=== PATIENT | female | born 1945 | race Caucasian/White ===

== ENCOUNTER 2023-11-12 10:25 | Inpatient (IN) | payer MEDICARE, SELFPAY ==
[2023-11-12] VITALS (37 sets, daily range): BP systolic 101–134; BP diastolic 33–60; PULSE 60–145; RESP 13–29; TEMP 36.4–37.1; O2SAT 91–98; BMI 19.8
--- NOTE | ~2023-11-12 | XR_ITS ---
MODIFIED ESOPHAGRAM HISTORY: Recent intubation TECHNIQUE: Modified barium esophagram was performed on 11/14/2023. I administered fluoroscopy and perf ormed the exam with speech pathologist. Patient was seated for lateral fluoroscopic imaging for renetta stion of thin liquids, pudding, solids and quantified amounts, followed by thin liquids in uncontroll ed amounts. This was recorded on tape. A single fluoroscopic spot image was also recorded. The DAP fo r this procedure was 1.513 Gycm2. The amount of fluoroscopy time used during this procedure was 3.2 m inutes. FINDINGS: Oral stage: Adequate function. Pharyngeal stage: There is laryngeal elevation and tongue base retraction. There is vallecular and pi riform sinus residue. There is laryngeal penetration with aspiration.. Cervical/esophageal stage: Adequate function. IMPRESSION: Pharyngeal dysphagia with laryngeal penetration and aspiration. Please correlate with sp eech pathologist findings and specific feeding recommendations. Reviewed, dictated and finalized at location A. BAGGER IMPRESSION: Pharyngeal dysphagia with laryngeal penetration and aspiration. Pl ease correlate with speech pathologist findings and specific feeding recommenda tions.
--- NOTE | ~2023-11-12 | XR_ITS ---
EXAMINATION: XR chest 1V portable DATE: 11/12/2023 11:44 INDICATION: Altered mental status TECHNIQUE: frontal view of the chest was obtained. COMPARISON: None FINDINGS: Mild reticulonodular pattern in the right lower lung zone corresponding to tree-in-bud opacities on s ubsequent CT with similar more subtle opacity left lower lung zone consistent with pneumonia. No pleu ral effusion or pneumothorax. Heart size is normal. Electronic device and numerous leads injected ove r the chest. IMPRESSION: 1. Subtle opacities in bilateral lower lung zones with appearance on subsequent CT favoring pneumonia . Reviewed, dictated and finalized at location A. E REPAIRER IMPRESSION: 1. Subtle opacities in bilateral lower lung zones with appearance on subsequent CT favoring pneumonia.
--- NOTE | ~2023-11-12 | CT_ITS ---
EXAMINATION: CT brain wo con DATE: 11/12/2023 12:28 INDICATION: Altered mental status. TECHNIQUE: Computed tomography (CT) of the head was performed without intravenous contrast. Sagittal and coronal reconstructions were performed. The mA was adjusted according to patient size. Iterative reconstruction technique was employed. The dose-length product was 605.33 mGy-cm. COMPARISON: None FINDINGS: Moderate sized region of decreased attenuation without evident atrophy or mass effect in the anterome dial superior left cerebellar hemisphere suggesting a acute to subacute infarct. No acute intracrania l hemorrhage, acute infarction or abnormal extra axial fluid collection. There is mild scattered whit e matter hypoattenuation consistent with chronic small vessel ischemic disease. Symmetric prominence of the sulci and or subarachnoid spaces overlying the convexities consistent with mild age-appropriat e diffuse cerebral volume loss. Ventricles are normal and symmetric. No mass/mass effect. Changes of bilateral intraocular lens replacement. The orbits and mastoid air cells are normal. Moderate mucosa l thickening in the posterior left ethmoid and sphenoid sinuses. IMPRESSION: 1. Moderate-sized region of decreased attenuation in the left cerebral hemisphere suspicious for acut e to subacute infarct. Correlate clinically for left cerebellar infarct. 2. Age-related changes including mild diffuse volume loss and mild scattered white matter hypoattenua tion consistent with chronic small vessel ischemic disease. Reviewed, dictated and finalized at location A. STANT DIRECTOR OF FINANCIAL AID IMPRESSION: 1. Moderate-sized region of decreased attenuation in the left cerebral hemisphe re suspicious for acute to subacute infarct. Correlate clinically for left cere bellar infarct. 2. Age-related changes including mild diffuse volume loss and mild scattered wh ite matter hypoattenuation consistent with chronic small vessel ischemic diseas e.
--- NOTE | ~2023-11-12 | XR_ITS ---
EXAM: XR abdomen gastric tube insert DATE: 11/12/2023 15:00 HISTORY: Eval gastric tube function . COMPARISON: 11/10/2023. FINDINGS: Senescent/emphysematous changes in the lungs. Mild right costophrenic angle blunting. Foll owing instillation of contrast through the G-tube, contrast is seen in the stomach, without obvious e xtravasation. More distal GI tract contrast is present from prior studies. Normal bowel gas pattern. Electronic device with numerous leads projecting over the lower chest. Posterior lumbar fusion hardwa re. IMPRESSION: G-tube, in good position. Reviewed, dictated and finalized at location K. AL HUSBANDRY TEACHER IMPRESSION: G-tube, in good position.
--- NOTE | ~2023-11-12 | CT_ITS ---
EXAMINATION: CT abdomen pelvis w con DATE: 11/12/2023 12:28 INDICATION: Periumbilical abdominal pain TECHNIQUE: Computed tomography (CT) of the abdomen and pelvis was performed with 100 mL Omnipaque-350 intravenous contrast. Automated exposure control and iterative reconstruction technique were employe d. The dose-length product was 588.48 mGy-cm. COMPARISON: None FINDINGS: Extensive tree-in-bud opacities in the bilateral lower lobes, right greater than left consistent with endobronchial spread of disease most likely pneumonia. Mild bronchiectasis and associated scarring t he right middle lobe. Heart size is normal. Atherosclerotic coronary artery calcific location. No per icardial or pleural effusion. Numerous hepatic and splenic calcifications consistent with old granulo matous disease. 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 Percutaneous gastrostomy tube bulb in the body the stomach. Gallbladder is not visualized there is mild intra and extra hepatic biliary ductal dilation likely related to prior cholecystectomy. Correlate with surgical history. Pancreas, bilateral adrenal glands and kidneys are normal. Oral contrast material seen throughout the colon ext ending to the rectum consistent with nonspecific diarrhea. No dilated bowel to suggest obstruction. G as and a Samson catheter within the bladder. The uterus is not identified and has likely been surgical ly resected. No free intraperitoneal gas or fluid. No pathologically enlarged abdominal or pelvic lym phadenopathy. Moderate to severe lumbar spondylosis with L4 laminectomy, partial L3 laminectomy and L 3-L5 and cemented posterior spinal fusion with bilateral vertical elysia and pedicle screw fixation. IMPRESSION: 1. Scattered tree-in-bud opacities in the bilateral lower lobes consistent with endobronchial spread of disease, most likely pneumonia. 2. Mild intra and extra hepatic biliary ductal dilation without visualized gallbladder suggesting seq uela prior cholecystectomy. Correlate with surgical history and with liver function tests. If clinica lly indicated could consider further evaluation with right upper quadrant ultrasound or MRCP. 3. Diffuse water-soluble contrast material throughout the colon, unclear whether prior oral contrast material passed into the colon with associated nonspecific diarrhea or result of prior water-soluble enema. Correlate with clinical history. Reviewed, dictated and finalized at location A. INUOUS PROCESS COFFEE ROASTER IMPRESSION: 1. Scattered tree-in-bud opacities in the bilateral lower lobes consistent with endobronchial spread of disease, most likely pneumonia. 2. Mild intra and extra hepatic biliary ductal dilation without visualized gall bladder suggesting sequela prior cholecystectomy. Correlate with surgical histo ry and with liver function tests. If clinically indicated could consider furthe r evaluation with right upper quadrant ultrasound or MRCP. 3. Diffuse water-soluble contrast material throughout the colon, unclear whethe r prior oral contrast material passed into the colon with associated nonspecifi c diarrhea or result of prior water-soluble enema. Correlate with clinical hist ory.
--- NOTE | 2023-11-12 10:32 | ECG_ITS ---
Measurements Intervals [place] Rate: 122 P: GA: 0 QRS: -28 QRSD: 135 T: 70 QT: 323 QTc: 462 Interpretive Statements PROBABLE ATRIAL FLUTTER WITH VARIABLE AV BLOCK AND RAPID VENTRICULAR RESPONSE INTRAVENTRICULAR CONDUCTION DELAY [130+ ms QRS DURATION] SEPTAL MYOCARDIAL INFARCTION , OF INDETERMINATE AGE [40+ ms Q WAVE IN V1/V2] ABNORMAL ECG NO PREVIOUS ECG AVAILABLE FOR COMPARISON Electronically Signed On 11-13-2023 18:18:56 COATER OPERATOR by Fidel Vieira M.D.
[2023-11-12] MEDS: LACTATED RINGERS 1,000 ML 999 ML IV CONT (11:01)
[2023-11-12] MEDS: dilTIAZem HCl INJ 25 MG/5 ML VIAL 10 MG IV PUSH (11:01)
[2023-11-12] MEDS: DEXTROSE 50% 25 GM/50 ML SYRINGE IV PUSH (11:12)
[2023-11-12 11:25] LABS: Glucose Point of Care 67 mg/dl (65-105)
[2023-11-12] MEDS: DEXTROSE 50% 25 GM/50 ML SYRINGE (11:35)
[2023-11-12] MEDS: KCL 40 MEQ/D5 1/2NS 1,000 ML 100 ML IV CONT ×2 (11:35→21:20)
[2023-11-12 11:37] LABS: Basophils Percent Auto 0.4 % (0.2-1.2); Eosinophils Absolute Auto 0.1 K/mm3 (0-0.3); Eosinophils Percent Auto 1.3 % (0-4.4); Hematocrit 30.1 % (37.0-47.0); Hemoglobin 9.7 g/dL (12.0-15.0); Immature Granulocyte Absolute 0.03 K/mm3 (0.00-0.031); Immature Granulocyte Percent A 0.4 % (0-0.5); Lymphocytes Absolute Auto 0.85 K/mm3 (0.9-3.2); Lymphocytes Percent Auto 10.8 % (18.3-44.2); Mean Corpuscular HGB Conc 32.2 g/dl (32-36); Mean Corpuscular Hemoglobin 32.1 pg (26-34); Mean Corpuscular Volume 99.7 fl (80-100); Mean Platelet Volume 11.4 fl (7.4-10.4); Monocytes Absolute Auto 0.6 K/mm3 (0.1-0.6); Monocytes Percent Auto 7.8 % (2.6-8.5); Neutrophils Absolute Auto 6.3 K/mm3 (1.3-6.7); Neutrophils Percent Auto 79.3 % (45.5-73.1); Platelet Count Result 310 k/mm3 (150-375); Red Blood Count 3.02 M/mm3 (4.2-5.4); Red Cell Distribution Width 14.3 % (11.5-14.5); White Blood Count 7.9 K/mm3 (4.5-10.0)
[2023-11-12] MEDS: MAGNESIUM SULF 2 GM/WATER 50ML 2 GM/50 ML BAG IVPB (11:44)
[2023-11-12] MEDS: CEFEPIME 2 GM/NS 50 ML 2 GM/50 ML BAG IVPB (11:44)
[2023-11-12 11:47] LABS: INR 1.1; Prothrombin Time 15.1 Seconds (11.1-14.7)
[2023-11-12 11:48] LABS: Lactic Acid Reflex 1.2 mmol/L (0.7-2.0); Partial Thromboplastin Time 28.4 SECONDS (22.3-36.8)
[2023-11-12 11:50] LABS: Alanine Aminotransferase 41 U/L (6-35); Albumin Level 2.8 g/dL (3.5-5.1); Alkaline Phosphatase 104 U/L (38-126); Anion Gap 5 mmol/L (8-16); Aspartate Amino Transferase 35 U/L (14-36); Bilirubin,Total 0.7 mg/dL (0.2-1.3); Blood Urea Nitrogen 28 mg/dL (7-17); CRP 2.7 mg/dL (<1.0); Calcium 8.2 mg/dL (8.4-10.2); Carbon Dioxide 28 mmol/L (22-30); Chloride 96 mmol/L (98-107); Estimated CRCL calculation 59 ml/min; Estimated Glomerular Filt Rate > 60; Glucose 310 mg/dL (65-110); Potassium 3.3 mmol/L (3.4-5.0); Sodium 129 mmol/L (137-145)
[2023-11-12] MEDS: CALCIUM GLUCONATE 1,000 MG/10 ML VIAL 1000 MG IV PUSH (12:32)
[2023-11-12] MEDS: VANCOMYCIN 1,250 MG/NS 250 ML 1,250 MG/250 ML BAG 166.67 MG IVPB (12:53)
[2023-11-12 12:59] LABS: Appearance Urine Cloudy (Clear); Bacteria Urine 1+ /hpf; Bilirubin Urine Negative (Negative); Blood Urine 2+ (Negative); Color Urine Yellow (Yellow); Glucose Urine UA 2+ mg/dL (Negative); Ketones Urine Trace mg/dL (Negative); Leukocyte Esterase Ur Trace LEU/UL (Negative); Nitrate Urine Negative (Negative); Non Pathogenic Casts 0-2; Protein Urine Trace mg/dL (Negative); Squamous Epithelial Cell Urine Few /hpf (Few); Urobilinogen Urine 0.2 mg/dL (<2.0); WBC Urine 21-50 /hpf
[2023-11-12 13:09] LABS: Specific Grav Ur 1.037 (1.001-1.035)
[2023-11-12 13:10] LABS: Add Urine Microscopic? YES
--- NOTE | 2023-11-12 13:48 | ED.AMS ---
HPI - Altered Mental Status General Chief Complaint: Altered Mental Status Stated Complaint: TUBE FEEDING PROBLEMS Time Seen by Provider: 11/12/23 10:39 History of Present Illness HPI narrative: HPI limited by patient's altered mental status This is a 78-year-old female, with history of coronary artery disease, CHF ( EF 20%) and recent history of left-sided cerebral stroke with right-sided deficits, brought in by EMS from nursing for altered mental status. The patient reportedly A&Ox3 at baseline with right-sided deficits. This morning, the patient was then able to tolerate tube feeds and appeared lethargic. Related Data Home Medications Medication Instructions Recorded Confirmed apixaban 2.5 mg tablet 2.5 mg feeding tube BID 11/07/23 11/12/23 atorvastatin 80 mg tablet 80 mg feeding tube DAILY 11/07/23 11/12/23 furosemide 40 mg tablet (Lasix) 40 mg feeding tube DAILY 11/07/23 11/12/23 ipratropium 0.5 mg-albuterol 3 mg 3 ml inhalation Q4H PRN Shortness 11/07/23 11/12/23 (2.5 mg base)/3 mL nebulization Of Breath soln lisinopril 5 mg tablet 5 mg feeding tube DAILY 11/07/23 11/12/23 metoprolol tartrate 25 mg tablet 12.5 mg feeding tube BID 11/07/23 11/12/23 miconazole nitrate 2 % topical 1 applic topical Q10-12H 11/10/23 11/12/23 cream calcium carbonate 200 mg calcium 200 mg PO Q6H PRN Indigestion 11/12/23 11/12/23 (500 mg) chewable tablet meclizine 12.5 mg tablet 12.5 mg PO TID PRN Vertigo 11/12/23 11/12/23 metoclopramide HCl 10 mg tablet See Rx Instructions .Route .COMPLEX 11/12/23 11/12/23 saliva stimulant comb. no.3 1 applic mucous membrane Q4H 11/12/23 11/12/23 (Biotene Moisturizing Mouth mucosal spray) tamsulosin 0.4 mg capsule 0.4 mg PO DAILY 11/12/23 11/12/23 Allergies Allergy/AdvReac Type Severity Reaction Status Date / Time No Known Allergies Allergy Verified 11/10/23 07:51 Review of Systems Review of Systems: Unable to obtain review of systems due to patient's altered mental status FOR[facility] Past Medical History Medical History (Updated 11/12/23 @ 17:10 by Lori Maddox APRN) Atrial fibrillation with RVR COPD (chronic obstructive pulmonary disease) CVA (cerebral vascular accident) Dislodged gastrostomy tube Dysphagia Gastrointestinal tube present Hyperlipidemia Hypertension Uses wearable garment containing external defibrillator with attached monitor Surgical History Surgical History History of gastrostomy tube placement Social History Social History Smoking status: Current every day smoker Tobacco type: cigarettes Alcohol intake: never Substance use: never Substance use type: does not use Spiritual care concerns: No Exam Narrative: GENERAL: Well-developed, well-nourished, and in no acute distress. HEAD: Normocephalic, atraumatic. EYES: PERRLA and EOMI. ENT: Nares clear, no rhinorrhea or epistaxis. Mucous membranes dry. Oropharynx without tonsillar hypertrophy exudate or other lesions. CHEST: good aeration, rales noted in right lower lung rivera.. No respiratory distress. No rales or rhonchi HEART: Irregularly irregular. No murmur heard. Normal peripheral pulses. ABDOMEN: Soft, diffuse mild tenderness without rebound or guarding. Gastrostomy tube is noted in the left upper quadrant that appears clean dry and intact. Nondistended, normal active bowel sounds. EXTREMITIES: Normal range of motion. No edema. SKIN: Warm, dry, no rash. NEURO: Alert and oriented x1 (self). Right side weakness. Moving left upper and lower extremities PSYCH: Normal mood and affect. Course Course Emergency Course: 11:51 - I have a strong suspicion for sepsis of unknown source. Will treat with cefepime and vancomycin begin sepsis workup. Will limit IV fluids considering the patient's poor EF. the patient is in AFib RVR with heart rate in the 140s. Will give IV flui
[2023-11-12 14:03] LABS: MRSA (PCR) NOT DETECTED (NOT DETECTE)
--- NOTE | 2023-11-12 14:05 | PM.IMHP ---
H&P: HPI History of Present Illness Date/Time: 11/12/23 14:05 Chief Complaint: Cough, Vomiting?, Hypoglycemia Narrative: 78 y/o F presents her with lethargy, cough, hypoglycemia with PMH of recent CVA with R sided deficits and dysphagia, HF w/ EF of 20%, AFib RVR, COPD, G-Tube, HLD, and HTN. Patient [facility] EMS [facility] for evaluation of wet cough, lethargy, g-tube feeding intolerance, and hypoglycemia. Recent lengthy admission to [place], see below. Here today abdominal discomfort, hypoglycemia at 60 overnight, and lethargy. Baseline post-CVA is A/Ox3, currently A/Ox3. Endorsing cough that started today. Has been unable to tolerate her feed tubes since yesterday and more lethargic. Endorsed some insomnia overnight related to abdominal discomfort which is diffuse. Per son at bedside, patient found to have urinary retention last night or early this morning. Patient had straight cath done 3 times and had total out of 2L. Urinary catheter subsequently placed. Has lifevest in place, last battery change at 0930 today, require battery change daily, and in place for dysrhythmia to the best of son's knowledge. 10/20/23: Patient had recent admission to [facility] from 10/20/23-11/08/23 for respiratory distress. Patient was intubated after arrival due to lethargy/airway protection. CXR was concerning for right middle and lower lobe pneumonia w/WBC of 12.2. Met SIRS criteria and started on ceftriaxone and vancomycin for sepsis in setting of PNA complicated by COPD. Admitted to the ICU. 10/21/23: Noted to be in AFib RVR on - given amiodarone and started on heparin and started on tube feedings due to intubation/NPO status. 10/24/23: Patient developed L sided deficits and dysphagia, CT showed acute cerebellar infarct with hypodensity in the L cerebellum compatible with acute infarct and hypodensity in the L frontal lobe compatible with age-indeterminate infarct. 10/25/23: Continued to have episodes of AFib RVR. 10/26/23: Patient extubated and transitioned to BiPAP. Failed swallow study. 10/27/23: Further downtitrated to HFNC. Failed second swallow study, Dobbhoff was placed. Echo done showing EF of 20% with hypokinesis of anterior wall.? 11/01/23: Increased lethargy noted, repeat head CT showed hypodensity in the right cerebellar hemisphere compatible with acute infarct and evolving infarct in the left cerebellar hemisphere with prominence of the temporal horn of the left lateral ventricle new since prior study. MRI showed large area of acute or subacute infarct involving the left cerebellar hemisphere, left middle cerebellar peduncle, left superior cerebellar peduncle and left posterior kendal and midbrain; small area of acute or subacute infarct in the left superior frontal lobe; postcontrast enhancement associated with infarct; partial effacement of the left side of the fourth ventricle due to edema associated with adjacent infarct. 11/02/23: PEG tube placed. 11/08/23: discharged to [facility] 11/09/23: PEG dislodged, CXR showed no acute cardiopulmonary process 11/10/23: PEG tube replaced, complained of dizziness and given Meclizine CXR showed nothing acute and small calcified pulmonary nodule of the R middle lobe. 11/11/23: c/o pain around PEG tube and not tolerating feeds well. Given Reglan and LBM earlier that day VS upon presentation: 98.1F, HR 140, RR 21, 125/56, 93% on RA. ED workup showed no leukocytosis, anemia with hgb of 9.7, Na 129, mild hypokalemia with K of 3.3, creatinine 0.5, initial glucose 114 (later dropped to 67), mild hypocalcemia in the setting of hypoalbuminemia, and UA equivocal. Head CT showed moderate-sized region of decreased attenuation in the left cerebral hemisphere suspicious for acute to subacute infarct and age related changes. CT of the abd/pelvis showed scattered tree-in-bud opacities in the bilateral lower lobes, mild intra and extra hepatic biliary ductal dilation, and diffuse water-soluble contrast material th
--- NOTE | 2023-11-12 17:19 | ADMGEN ---
This patient, Taylor Alcaraz, was admitted to Medical Room 341-01. Patient/family oriented to hospital policies and general routines including ID bracelet, bed and alarms, visiting hours, pain management, procedures, bathroom and other care routines, personal items, smoking policy, room service/diet, and visiting hours. Information on how to activate the Rapid Response Team has been discussed. Patient/Family are encouraged to report perceived risks to care and to ask questions if they do not understand what they are told or what they should do.
--- NOTE | 2023-11-12 18:26 | PC.NURSE ---
RN completed admission to the best of her ability based off of the information that the patient and family could provide along with a packet that was sent over from [facility]. Patient is oriented to person, place, time, although cannot hold a conversation. Patient keeps falling asleep and will not answer all questions.
[2023-11-12 18:31] LABS: Glucose Point of Care 105 mg/dl (65-105)
[2023-11-12] MEDS: PANTOPRAZOLE SODIUM IV 40 MG VIAL IV PUSH (18:57)
[2023-11-13] VITALS (11 sets, daily range): BP systolic 136–142; BP diastolic 46–49; PULSE 77–100; RESP 14–18; TEMP 36.4–37.1; O2SAT 93–97; BMI 19.8
[2023-11-13 00:12] LABS: Glucose Point of Care 147 mg/dl (65-105)
[2023-11-13] MEDS: KCL 40 MEQ/D5 1/2NS 1,000 ML 100 ML IV CONT ×2 (05:39→20:36)
[2023-11-13 06:11] LABS: Basophils Percent Auto 0.4 % (0.2-1.2); Eosinophils Absolute Auto 0.2 K/mm3 (0-0.3); Eosinophils Percent Auto 1.8 % (0-4.4); Hematocrit 27.7 % (37.0-47.0); Immature Granulocyte Absolute 0.04 K/mm3 (0.00-0.031); Immature Granulocyte Percent A 0.4 % (0-0.5); Lymphocytes Absolute Auto 0.83 K/mm3 (0.9-3.2); Lymphocytes Percent Auto 9.2 % (18.3-44.2); Mean Corpuscular HGB Conc 32.5 g/dl (32-36); Mean Corpuscular Hemoglobin 32.3 pg (26-34); Mean Corpuscular Volume 99.3 fl (80-100); Mean Platelet Volume 11.1 fl (7.4-10.4); Monocytes Absolute Auto 0.8 K/mm3 (0.1-0.6); Monocytes Percent Auto 8.6 % (2.6-8.5); Neutrophils Absolute Auto 7.2 K/mm3 (1.3-6.7); Neutrophils Percent Auto 79.6 % (45.5-73.1); Platelet Count Result 290 k/mm3 (150-375); Red Blood Count 2.79 M/mm3 (4.2-5.4); Red Cell Distribution Width 14.3 % (11.5-14.5)
[2023-11-13 06:39] LABS: Glucose Point of Care 120 mg/dl (65-105)
[2023-11-13 06:44] LABS: Anion Gap 1 mmol/L (8-16); Blood Urea Nitrogen 16 mg/dL (7-17); Calcium 8.3 mg/dL (8.4-10.2); Carbon Dioxide 27 mmol/L (22-30); Chloride 105 mmol/L (98-107); Estimated CRCL calculation 59 ml/min; Estimated Glomerular Filt Rate > 60; Glucose 97 mg/dL (65-110); Sodium 133 mmol/L (137-145)
[2023-11-13] MEDS: PANTOPRAZOLE SODIUM IV 40 MG VIAL IV PUSH (09:21)
[2023-11-13 12:27] LABS: Glucose Point of Care 126 mg/dl (65-105)
--- NOTE | 2023-11-13 14:38 | PM.CNCAR ---
Assessment and Plan Assessment and plan (1) Atrial fibrillation with RVR: Code(s): I48.91 - Unspecified atrial fibrillation Status: Acute Assessment and Plan: Patient was given IV diltiazem converting from atrial fibrillation with RVR versus atrial flutter with variable AV block to sinus rhythm which has maintained. She had brief episode of PSVT in which she was asymptomatic. A total had not yet been restarted from prior to admission. Resume metoprolol tartrate 12.5 mg twice daily per tube and up titrate as BP and heart rate permit. Resume systemic anticoagulation with Eliquis 5 mg twice daily per tube. While patient's weight is less than 60 kg she is less than age 81 and her creatinine is less than 1.5 therefore 5 mg twice daily as appropriate dosing. Monitor for bleeding. Continue telemetry. Patient is no longer on amiodarone. We discussed at great length it is likely her history of atrial fibrillation and paroxysmal as a cause of her stroke yet she did not carry a prior diagnosis of atrial fibrillation. Further recommendation to follow pending her response to medical therapy. (2) Cardiomyopathy: Qualifiers: Cardiomyopathy type: other Qualified Code(s): I42.8 - Other cardiomyopathies Code(s): I42.9 - Cardiomyopathy, unspecified Status: Acute Assessment and Plan: Severe LV systolic dysfunction EF 20% as reported. Etiology unclear. There is some mention may have been secondary to takotsubo cardiomyopathy or ?broken heart syndrome? given the very recent of her . However, months she is not exhibiting anginal symptoms nor is a history of known CAD can not exclude underlying CAD given her risk factors and longstanding tobacco abuse. Discussed life vest benefits with regards to reduction in risk for sudden cardiac sec secondary to ventricular tachycardia and ventricular fibrillation. She does not yet qualify for an ICD given recent diagnosis. Ideally, would prefer to optimize guideline directed medical therapy including Entresto, spironolactone and or Jardiance if tolerated. Will need to monitor closely. Discussed with family at bedside at length. I advised her to wear her LifeVest at all times. We are somewhat limited with regard to medical therapy options as this needs to be administered per feeding tube at this time. Patient may follow up with her distresser as an outpatient after discharge. No plans for invasive workup given recent stroke and need for systemic anticoagulation at this time. (3) Pneumonia: Qualifiers: Laterality: right Lung location: lower lobe of lung Pneumonia type: due to unspecified organism Qualified Code(s): J18.9 - Pneumonia, unspecified organism Code(s): J18.9 - Pneumonia, unspecified organism Status: Acute Assessment and Plan: Continue IV antibiotics and supportive care per hospitalist service with vancomycin. Patient is clinically improving significantly since admission. (4) Sepsis: Qualifiers: Sepsis acute organ dysfunction status: without acute organ dysfunction Sepsis type: sepsis due to unspecified organism Qualified Code(s): A41.9 - Sepsis, unspecified organism Code(s): A41.9 - Sepsis, unspecified organism Status: Acute Assessment and Plan: Resolving. Continue antibiotics and supportive care per hospitalist service. (5) CVA (cerebral vascular accident): Code(s): I63.9 - Cerebral infarction, unspecified Status: Acute Assessment and Plan: History of bilateral multiple acute subacute strokes recently which appear to be consistent with an embolic phenomenon very likely related to her history of atrial fibrillation. Therefore, continue systemic anticoagulation. Statin therapy would also be critically important as tolerated. Resume atorvastatin 80 mg at bedtime. Check lipid panel. (6) Altered mental status: Qualifiers: Altered mental status
--- NOTE | 2023-11-13 14:47 | PM.IMPN ---
Progress Note: A&P Assessment and Plan (1) Sepsis: Qualifiers: Sepsis acute organ dysfunction status: without acute organ dysfunction Sepsis type: sepsis due to unspecified organism Qualified Code(s): A41.9 - Sepsis, unspecified organism Code(s): A41.9 - Sepsis, unspecified organism Status: Acute Assessment and Plan: - meet SIRS criteria: upon arrival - recheck lactic acid pending - blood cultures pending - suspected source: PNA and/or UTI - started on HAP tx w/coverage for UTI: cefepime and vancomycin - no current hypoxia, BP soft -cefepime only given one dose, wbc is normal -check procalcitonin (2) Pneumonia: Qualifiers: Laterality: right Lung location: lower lobe of lung Pneumonia type: due to unspecified organism Qualified Code(s): J18.9 - Pneumonia, unspecified organism Code(s): J18.9 - Pneumonia, unspecified organism Status: Acute Assessment and Plan: - CT of the abd/pelvis showed extensive tree-in-bud opacities in the bilateral lower lobes, right greater than left consistent with endobronchial spread of disease most likely pneumonia. Mild bronchiectasis and associated scarring the right middle lobe. - given recent admission, antibiotic use, and intubation; started on hospital acquired PNA treatment. Cefepime and Vancomycin started on 11/12. - MRSA PCR - sputum culture pending - nebs PRN - antipyretic PRN - no current hypoxia (3) Altered mental status: Qualifiers: Altered mental status type: unspecified Qualified Code(s): R41.82 - Altered mental status, unspecified Code(s): R41.82 - Altered mental status, unspecified Status: Resolved Assessment and Plan: resolved pt is a/o x 3 -continue to monitor (4) Urinary retention: Code(s): R33.9 - Retention of urine, unspecified Status: Acute Assessment and Plan: - UA: Cloudy, specific gravity 1.037, 2+ glucose, trace ketones, 2+ blood, trace leuks, 11-20 rbc's, 21-50 wbc's, few squamous epithelial cells, 1+ bacteria - urine culture pending - urinary catheter placed today, 11/12 - pt received cefe and vanc for coverage of PNA and UTI in the ED - will continue vanc at this time -consult to ID pharm in the a.m. - no previous cultures on file (5) Gastrointestinal tube present: Code(s): Z93.1 - Gastrostomy status Status: Acute Assessment and Plan: - XR of abdomen: G-tube, in good position. - antiemetics PRN - IV fluids - tube feeds: Jevity 1.2, continuous, rate at 20 mL/hr. Hold on advancement given current discomfort/intolerance - drilling and production superintendent consulted - Q6H glucose checks and hypoglycemia protocol in place (6) Atrial fibrillation with RVR: Code(s): I48.91 - Unspecified atrial fibrillation Status: Acute Assessment and Plan: currently in NSR -cardiology consultation appreciate recommendation and plan resume metoprolol tartrate 12.5 mg BID per tube resume Eliquis 5mg BID - continue tele monitoring (7) Hypertension: Qualifiers: Hypertension type: unspecified Qualified Code(s): I10 - Essential (primary) hypertension Code(s): I10 - Essential (primary) hypertension Status: Acute (8) Uses wearable garment containing external defibrillator with attached monitor: Code(s): Z95.810 - Presence of automatic (implantable) cardiac defibrillator Status: Acute Assessment and Plan: Cardiology consulted appreciate recommendation and plan Plan to continue LifeVest at all times, limited medical therapy plans given severly reduced LV systolic dysfunction and current EF of 20% - battery changes QAM at 0900 - battery recharger and additional battery at bedside - tele monitoring - will have pt follow up with human service technician out-pt Plan long discussion with pt and daughter in-law by the bedside, pt and family are tearful and have been recently thinking of scarlet
--- NOTE | 2023-11-13 15:52 | PC.NURSE ---
Patient took of lifevest. Family, hospitalist, and county library director all aware.
--- NOTE | 2023-11-13 17:16 | PC.NURSE ---
Patient and family decided they wanted life vest back on. Hospitalist aware.
[2023-11-13] MEDS: VANCOMYCIN 750 MG/NS 250 ML 750 MG/250 ML BAG 250 MG IVPB (17:56)
[2023-11-13] MEDS: METOPROLOL TARTRATE 12.5 MG TABLET FEED TUBE (20:37)
[2023-11-13] MEDS: APIXABAN 5 MG TABLET FEED TUBE (20:37)
[2023-11-13] MEDS: MICONAZOLE NITRATE 2% CREAM 30 GM TUBE 1 APPLIC TOPICAL (22:25)
[2023-11-13 22:47] LABS: Lactic Acid Reflex 0.9 mmol/L (0.7-2.0)
[2023-11-14] VITALS (11 sets, daily range): BP systolic 106–132; BP diastolic 45–63; PULSE 70–89; RESP 16–18; TEMP 36.4–36.6; O2SAT 95–100
[2023-11-14] MEDS: METOCLOPRAMIDE HCL 10 MG TABLET FEED TUBE ×2 (05:27→12:33)
[2023-11-14 06:13] LABS: Glucose Point of Care 151 mg/dl (65-105)
[2023-11-14 06:13] LABS: Glucose Point of Care 107 mg/dl (65-105)
[2023-11-14 06:20] LABS: Basophils Percent Auto 0.6 % (0.2-1.2); Eosinophils Absolute Auto 0.4 K/mm3 (0-0.3); Eosinophils Percent Auto 5.4 % (0-4.4); Hematocrit 28.3 % (37.0-47.0); Hemoglobin 9.2 g/dL (12.0-15.0); Immature Granulocyte Absolute 0.02 K/mm3 (0.00-0.031); Immature Granulocyte Percent A 0.3 % (0-0.5); Lymphocytes Absolute Auto 0.71 K/mm3 (0.9-3.2); Lymphocytes Percent Auto 10.9 % (18.3-44.2); Mean Corpuscular HGB Conc 32.5 g/dl (32-36); Mean Corpuscular Hemoglobin 32.5 pg (26-34); Monocytes Absolute Auto 0.6 K/mm3 (0.1-0.6); Monocytes Percent Auto 9.2 % (2.6-8.5); Neutrophils Absolute Auto 4.8 K/mm3 (1.3-6.7); Neutrophils Percent Auto 73.6 % (45.5-73.1); Platelet Count Result 274 k/mm3 (150-375); Red Blood Count 2.83 M/mm3 (4.2-5.4); Red Cell Distribution Width 14.3 % (11.5-14.5); White Blood Count 6.5 K/mm3 (4.5-10.0)
[2023-11-14 06:34] LABS: Glucose Point of Care 129 mg/dl (65-105)
[2023-11-14 06:44] LABS: Alanine Aminotransferase 32 U/L (6-35); Albumin Level 2.9 g/dL (3.5-5.1); Alkaline Phosphatase 104 U/L (38-126); Anion Gap 1 mmol/L (8-16); Aspartate Amino Transferase 28 U/L (14-36); Bilirubin,Total 0.4 mg/dL (0.2-1.3); Blood Urea Nitrogen 6 mg/dL (7-17); Calcium 8.4 mg/dL (8.4-10.2); Carbon Dioxide 27 mmol/L (22-30); Chloride 104 mmol/L (98-107); Cholesterol 126 mg/dL (0-200); Estimated CRCL calculation 72 ml/min; Estimated Glomerular Filt Rate > 60; Glucose 121 mg/dL (65-110); HDL Direct 39 mg/dL; LDL Cholesterol Direct 69 mg/dL; Potassium 4.3 mmol/L (3.4-5.0); Sodium 132 mmol/L (137-145); Triglycerides 44 mg/dL (<150)
[2023-11-14 06:49] LABS: Procalcitonin 0.3 ng/mL
--- NOTE | 2023-11-14 10:57 | PCSTNOTE ---
Please refer to the Modified Barium Swallow Evaluation in the EMR.
--- NOTE | 2023-11-14 11:21 | PCNFU ---
Nutrition Follow-Up Complete: Severe Protein Calorie Malnutrition as related to inadequate energy intake with increased protein energy needs in the setting of chronic disease (dysphgia) as evidenced by NFPE finding as follows: severe muscle wasting (temporalis, deltoids, calf) and subcutaneous fat loss(Biceps/triceps/orbital fat pads). Goal: tolerate tube feedings to goal rate. Pt current nutrition is Jevity 1.5 at 28 ml/hr. Nutrition recommendation: Jevity 1.5 at 40 ml/hr. Last recorded weight is 47.6 kg, no new weight to report. Bowel Motility:+Bm reported 11/13 Labs Reviewed:Glu 121, BUN 6, Na 132, HCt 28.3,Hgb 9.2 Meds Noted: Lopressor, Eliquis, Reglan, Protonix Skin: WNL Additional Notes: Patient had MBS today-recommendation continue for non oral feedings. Tube feedings continue with Jevity 1.5, goal rate at 40 ml/hr. Tube feedings at goal rate providing 1320 kcals/56 gms protein/669 ml water. Flush 100 ml q 4 hours. Tube feedings are meeting 92% kcal needs at 30 kcal/kg and 98% protein needs at 1.2-1.4 gm/kg of protein needs. Agree with diet orders at this time. Monitoring tolerance, labs, bowel patterns, weights, plan of care Follow up Monday and Monday per policy
[2023-11-14 12:11] LABS: Glucose Point of Care 129 mg/dl (65-105)
[2023-11-14] MEDS: ATORVASTATIN 40 MG TABLET 80 MG FEED TUBE (12:33)
[2023-11-14] MEDS: lisinopriL 5 MG TABLET FEED TUBE (12:33)
[2023-11-14] MEDS: METOPROLOL TARTRATE 12.5 MG TABLET FEED TUBE ×2 (12:33→21:15)
[2023-11-14] MEDS: FUROSEMIDE 40 MG TABLET FEED TUBE (12:34)
[2023-11-14] MEDS: TAMSULOSIN HCL 0.4 MG CAPSULE PO (12:34)
[2023-11-14] MEDS: PANTOPRAZOLE SODIUM IV 40 MG VIAL IV PUSH (12:34)
[2023-11-14] MEDS: KCL 40 MEQ/D5 1/2NS 1,000 ML 100 ML IV CONT (12:34)
[2023-11-14] MEDS: APIXABAN 5 MG TABLET FEED TUBE ×2 (12:34→21:15)
[2023-11-14] MEDS: AMOXICILLIN/CLAVULANATE K SUSP 400-57 MG/5 ML 50 ML BOTTLE 500 MG PO ×2 (12:34→22:27)
--- NOTE | 2023-11-14 13:39 | P.CDI_ITS ---
CDI Query Clarification Request BMI 19.8 Nutritional Follow up: Severe protein calorie malnutrition as related to inadequate energy intake with increased protein energy needs in the setting of chronic disease (dysphagia) as evidenced by NFPE findings as follows: severe muscle wasting (temporalis, deltoid, calf) and subcutaneous fat loss (Biceps/ triceps/ orbital fat pads). Please refer to the comprehensive nutrition assessment for further information. Please clarify severity of protein calorie malnutrition if known: * Mild * Moderate * Severe * Other/Unspecified <Judy Sam RN - Last Filed: 11/14/23 13:44> Clarified Diagnosis Clarified Diagnosis: Nutrition Follow-Up Complete: Severe Protein Calorie Malnutrition as related to inadequate energy intake with increased protein energy needs in the setting of chronic disease (dysphagia)? as evidenced by NFPE finding as follows: severe muscle wasting (temporalis, deltoids, calf) and subcutaneous fat loss(Biceps/triceps/orbital fat pads). <Latha Montano APRN - Last Filed: 11/14/23 17:26>
--- NOTE | 2023-11-14 14:30 | PM.PNCARD ---
Progress Note: A&P Assessment and Plan (1) Atrial fibrillation with RVR: Code(s): I48.91 - Unspecified atrial fibrillation Status: Acute Assessment and Plan: Remains in sinus rhythm on telemetry with a few brief episodes of PSVT. Continue metoprolol. Continue a/c with apixaban. (2) Cardiomyopathy: Qualifiers: Cardiomyopathy type: other Qualified Code(s): I42.8 - Other cardiomyopathies Code(s): I42.9 - Cardiomyopathy, unspecified Status: Acute Assessment and Plan: Severe LV systolic dysfunction EF 20% as reported. Etiology unclear. Perhaps Takotsubo CMY. Continue GDMT with lisinopril, metoprolol. Metoprolol should be shifted to Toprol XL when able Does not appear to be in any decompensated heart failure Follow up with her coordinator of online programs at [facility] Cardiology will sign off please call with any questions (3) Pneumonia: Qualifiers: Laterality: right Lung location: lower lobe of lung Pneumonia type: due to unspecified organism Qualified Code(s): J18.9 - Pneumonia, unspecified organism Code(s): J18.9 - Pneumonia, unspecified organism Status: Acute Assessment and Plan: Continue IV antibiotics and supportive care per hospitalist service with vancomycin. Patient is clinically improving significantly since admission. (4) Sepsis: Qualifiers: Sepsis acute organ dysfunction status: without acute organ dysfunction Sepsis type: sepsis due to unspecified organism Qualified Code(s): A41.9 - Sepsis, unspecified organism Code(s): A41.9 - Sepsis, unspecified organism Status: Acute Assessment and Plan: Resolving. Continue antibiotics and supportive care per hospitalist service. (5) CVA (cerebral vascular accident): Code(s): I63.9 - Cerebral infarction, unspecified Status: Acute Assessment and Plan: History of bilateral multiple acute subacute strokes recently which appear to be consistent with an embolic phenomenon very likely related to her history of atrial fibrillation. Therefore, continue systemic anticoagulation. Statin therapy would also be critically important as tolerated. Resume atorvastatin 80 mg at bedtime. (6) Altered mental status: Qualifiers: Altered mental status type: unspecified Qualified Code(s): R41.82 - Altered mental status, unspecified Code(s): R41.82 - Altered mental status, unspecified Status: Resolved Assessment and Plan: As above, improving since admission and treatment with IV antibiotics and supportive care. Continue nutritional support. Replete electrolytes as warranted. (7) Hyperlipidemia: Code(s): E78.5 - Hyperlipidemia, unspecified Status: Acute Assessment and Plan: Continue statin Subjective Date/time seen: 11/14/23 14:30 Interval history: Cardiology follow up for atrial fibrillation, cardiomyopathy She feels tired today but has no other complaints. Apparently not sleeping well at night according to her son who is at the bedside. She denies shortness of breath, chest pain. Review of Systems Review of Systems: Remainder of the review of systems is otherwise negative aside from that noted in the HPI. All systems reviewed & are unremarkable except as noted in HPI and below Constitutional: Constitutional: Reports as per HPI and Reports no additional constitutional complaints Eyes: Eyes: Reports as per HPI and Reports no additional eye complaints ENT: Reports system reviewed and no additional complaints, except as documented and Reports as per HPI Cardiovascular: Cardiovascular: Reports as per HPI and Reports no additional cardiovascular complaints Respiratory: Respiratory: Reports as per HPI and Reports no additional respiratory complaints Gastrointestinal: Gastrointestinal: Reports as per HPI and Reports no additional gastrointestinal complaints Genitourinary: Genitourinary: Reports as per HPI
[2023-11-14 17:24] LABS: Glucose Point of Care 114 mg/dl (65-105)
--- NOTE | 2023-11-14 17:26 | PM.DS ---
DS: Admitting Diagnosis Discharge Date 11/14/2023 Admitting Diagnosis Acute hypokalemia DS: Discharge Diagnosis Discharge Diagnosis (1) Uses wearable garment containing external defibrillator with attached monitor: Code(s): Z95.810 - Presence of automatic (implantable) cardiac defibrillator Status: Acute (2) Urinary retention: Code(s): R33.9 - Retention of urine, unspecified Status: Acute (3) Acute hypokalemia: Code(s): E87.6 - Hypokalemia Status: Acute (4) Hypocalcemia: Code(s): E83.51 - Hypocalcemia Status: Acute (5) Gastrointestinal tube present: Code(s): Z93.1 - Gastrostomy status Status: Acute (6) Altered mental status: Qualifiers: Altered mental status type: unspecified Qualified Code(s): R41.82 - Altered mental status, unspecified Code(s): R41.82 - Altered mental status, unspecified Status: Resolved (7) Pneumonia: Qualifiers: Laterality: right Lung location: lower lobe of lung Pneumonia type: due to unspecified organism Qualified Code(s): J18.9 - Pneumonia, unspecified organism Code(s): J18.9 - Pneumonia, unspecified organism Status: Acute (8) COPD (chronic obstructive pulmonary disease): Code(s): J44.9 - Chronic obstructive pulmonary disease, unspecified Status: Acute DS: Summary Hospital Course Reason for hospitalization: 78 y/o F presents her with lethargy, cough, hypoglycemia with PMH of recent CVA with R sided deficits and dysphagia, HF w/ EF of 20%, AFib RVR, COPD, G-Tube, HLD, and HTN. Hospital Course: Patient presented here via EMS from [facility] for evaluation of wet cough, lethargy, g-tube feeding intolerance, and hypoglycemia. Recent lengthy admission to [place], see below. Here today abdominal discomfort, hypoglycemia at 60 overnight, and lethargy. Baseline post-CVA is A/Ox3, currently A/Ox3. Endorsing cough that started today. Has been unable to tolerate her feed tubes since yesterday and more lethargic. Endorsed some insomnia overnight related to abdominal discomfort which is diffuse. Per son at bedside, patient found to have urinary retention last night or early this morning. Patient had straight cath done 3 times and had total out of 2L. Urinary catheter subsequently placed. Has lifevest in place, last battery change at 0930 today, require battery change daily, and in place for dysrhythmia to the best of son's knowledge. VS upon presentation: 98.1F, HR 140, RR 21, 125/56, 93% on RA. ED workup showed no leukocytosis, anemia with hgb of 9.7, Na 129, mild hypokalemia with K of 3.3, creatinine 0.5, initial glucose 114 (later dropped to 67), mild hypocalcemia in the setting of hypoalbuminemia, and UA equivocal. Head CT showed moderate-sized region of decreased attenuation in the left cerebral hemisphere suspicious for acute to subacute infarct and age related changes. CT of the abd/pelvis showed scattered tree-in-bud opacities in the bilateral lower lobes, mild intra and extra hepatic biliary ductal dilation, and diffuse water-soluble contrast material throughout the colon. CXR showed subtle opacities in bilateral lower lung zones. Telemetry showed AFib RVR.? Interval Hx:?11/13/2023 pt seen today, she is awake a/o 3 her daughter-in law is bedside, she denies any c/o at this time. She is consistent with her HPI, we discuss her long hospital course and the fact that she has been in the hospital since the day her . She seems very depressed today and during intake she is tearful when discussing her HPI. Plan is to continue her ABX, resume her home meds, cardiology is consulted will wait for recs and plan. She has requested least invasive measures at this time. Status at Discharge Functional status at discharge: bed bound Overall status at discharge: patient is progressing back to baseline Time Spent with Patient Time attestation: Total time spent providing and/or coordi
--- NOTE | 2023-11-14 17:36 | PM.IMPN ---
Progress Note: A&P Assessment and Plan (1) Pneumonia: Qualifiers: Laterality: right Lung location: lower lobe of lung Pneumonia type: due to unspecified organism Qualified Code(s): J18.9 - Pneumonia, unspecified organism Code(s): J18.9 - Pneumonia, unspecified organism Status: Acute Assessment and Plan: -procalcitonin 0.3, not requiring oxygen, denies SOB ?CT of the abd/pelvis showed extensive tree-in-bud opacities in the bilateral lower lobes, right greater than left consistent with endobronchial spread of disease most likely pneumonia. Mild bronchiectasis and associated scarring the right middle lobe. Pharmacy consult, cefepime IV and vanc IV deescalate -initiate amoxicillin/K+ clavulanate 500 mg p.o. Q 8 hours give through PEG tube - MRSA PCR negative - sputum culture pending - nebs PRN - antipyretic PRN (2) Urinary retention: Code(s): R33.9 - Retention of urine, unspecified Status: Acute Assessment and Plan: -continue to monitor -strict I&O (3) Uses wearable garment containing external defibrillator with attached monitor: Code(s): Z95.810 - Presence of automatic (implantable) cardiac defibrillator Status: Acute Assessment and Plan: Cardiology consulted appreciate recommendation and plan Plan to continue LifeVest at all times, limited medical therapy plans given severely reduced LV systolic dysfunction and current EF of 20% - battery changes QAM at 0900 - transportation program director and additional battery at bedside - tele monitoring - will have pt follow up with plate mill mill hand out-pt (4) Acute hypokalemia: Code(s): E87.6 - Hypokalemia Status: Resolved Assessment and Plan: Resolved (5) Hypocalcemia: Code(s): E83.51 - Hypocalcemia Status: Resolved Assessment and Plan: Calcium is 8.4 (6) Gastrointestinal tube present: Code(s): Z93.1 - Gastrostomy status Status: Acute Assessment and Plan: - XR of abdomen: G-tube, in good position. - antiemetics PRN - continue IV fluids Pt current nutrition is Jevity 1.5 at 28 ml/hr.? Nutrition recommendation:? Jevity 1.5 at 40 ml/hr - Q6H glucose checks and hypoglycemia protocol in place (7) Altered mental status: Qualifiers: Altered mental status type: unspecified Qualified Code(s): R41.82 - Altered mental status, unspecified Code(s): R41.82 - Altered mental status, unspecified Status: Resolved Assessment and Plan: resolved pt is a/o x 3 -continue to monitor (8) Hypertension: Qualifiers: Hypertension type: unspecified Qualified Code(s): I10 - Essential (primary) hypertension Code(s): I10 - Essential (primary) hypertension Status: Acute (9) Atrial fibrillation with RVR: Code(s): I48.91 - Unspecified atrial fibrillation Status: Acute Plan Originally was going to discharge patient this evening, she reports moderate fatigue concerned for arriving to facility to late. Her urine culture is preliminary positive of Enterococcus species, although antibiotics de-escalated to p.o. want to monitor pt overnight to make sure tube feeding is tolerated overnight, with no episodes of nausea vomiting. Patient endorses she still would like to speak with her family in reference to hospice versus rehabilitation. Home Meds/Chronic Conditions Diet: tube feeds GI Prophylaxis: pantoprazole DVT Prophylaxis: SCDs Lines: pIV Code Status: Full Code Subjective Date/time seen: 11/14/23 17:36 Interval history: 78 y/o F presents her with lethargy, cough, hypoglycemia with PMH of recent CVA with R sided deficits and dysphagia, HF w/ EF of 20%, AFib RVR, COPD, G-Tube, HLD, and HTN. HPI from ED:11/12/2023 Patient presented here via EMS from [facility] for evaluation of wet cough, lethargy, g-tube feeding intolerance, and hypoglycemia. Recent lengthy admission to [place], see below. Here today
[2023-11-15] VITALS (10 sets, daily range): BP systolic 97–125; BP diastolic 44–46; PULSE 63–92; RESP 16–18; TEMP 36.6–37.1; O2SAT 93–99
[2023-11-15 00:50] LABS: Glucose Point of Care 129 mg/dl (65-105)
[2023-11-15] MEDS: KCL 40 MEQ/D5 1/2NS 1,000 ML 100 ML IV CONT (05:35)
[2023-11-15 05:36] LABS: Basophils Percent Auto 0.6 % (0.2-1.2); Eosinophils Absolute Auto 0.3 K/mm3 (0-0.3); Eosinophils Percent Auto 5.5 % (0-4.4); Hematocrit 30.3 % (37.0-47.0); Hemoglobin 9.4 g/dL (12.0-15.0); Immature Granulocyte Absolute 0.02 K/mm3 (0.00-0.031); Immature Granulocyte Percent A 0.3 % (0-0.5); Lymphocytes Absolute Auto 0.88 K/mm3 (0.9-3.2); Lymphocytes Percent Auto 14.3 % (18.3-44.2); Mean Corpuscular Hemoglobin 31.6 pg (26-34); Monocytes Absolute Auto 0.6 K/mm3 (0.1-0.6); Monocytes Percent Auto 9.7 % (2.6-8.5); Neutrophils Absolute Auto 4.3 K/mm3 (1.3-6.7); Neutrophils Percent Auto 69.6 % (45.5-73.1); Platelet Count Result 255 k/mm3 (150-375); Red Blood Count 2.97 M/mm3 (4.2-5.4); Red Cell Distribution Width 14.6 % (11.5-14.5); White Blood Count 6.2 K/mm3 (4.5-10.0)
[2023-11-15] MEDS: METOCLOPRAMIDE HCL 10 MG TABLET FEED TUBE (05:36)
[2023-11-15] MEDS: AMOXICILLIN/CLAVULANATE K SUSP 400-57 MG/5 ML 50 ML BOTTLE 500 MG PO ×3 (05:36→21:07)
[2023-11-15 05:53] LABS: Alanine Aminotransferase 38 U/L (6-35); Albumin Level 2.9 g/dL (3.5-5.1); Alkaline Phosphatase 110 U/L (38-126); Anion Gap 0 mmol/L (8-16); Aspartate Amino Transferase 38 U/L (14-36); Bilirubin,Total 0.4 mg/dL (0.2-1.3); Blood Urea Nitrogen 12 mg/dL (7-17); Calcium 8.7 mg/dL (8.4-10.2); Carbon Dioxide 32 mmol/L (22-30); Chloride 99 mmol/L (98-107); Estimated CRCL calculation 72 ml/min; Estimated Glomerular Filt Rate > 60; Glucose 130 mg/dL (65-110); Potassium 4.5 mmol/L (3.4-5.0); Sodium 131 mmol/L (137-145)
[2023-11-15] MEDS: PANTOPRAZOLE SODIUM IV 40 MG VIAL IV PUSH (08:41)
[2023-11-15] MEDS: ATORVASTATIN 40 MG TABLET 80 MG FEED TUBE (08:42)
[2023-11-15] MEDS: FUROSEMIDE 40 MG TABLET FEED TUBE (08:42)
[2023-11-15] MEDS: lisinopriL 5 MG TABLET FEED TUBE (08:42)
[2023-11-15] MEDS: METOPROLOL TARTRATE 12.5 MG TABLET FEED TUBE ×2 (08:42→20:58)
[2023-11-15] MEDS: APIXABAN 5 MG TABLET FEED TUBE ×2 (08:42→20:58)
[2023-11-15] MEDS: TAMSULOSIN HCL 0.4 MG CAPSULE PO (08:42)
--- NOTE | 2023-11-15 11:46 | PM.DS ---
DS: Admitting Diagnosis Discharge Date 11/15/23 Admitting Diagnosis Pneumonia/ UTI/ Hypoglycemia DS: Discharge Diagnosis Discharge Diagnosis (1) Pneumonia: Qualifiers: Laterality: right Lung location: lower lobe of lung Pneumonia type: due to unspecified organism Qualified Code(s): J18.9 - Pneumonia, unspecified organism Code(s): J18.9 - Pneumonia, unspecified organism Status: Acute Assessment and Plan: -procalcitonin 0.3, not requiring oxygen, denies SOB ?CT of the abd/pelvis showed extensive tree-in-bud opacities in the bilateral lower lobes, right greater than left consistent with endobronchial spread of disease most likely pneumonia. Mild bronchiectasis and associated scarring the right middle lobe. Pharmacy consult, cefepime IV and vanc IV deescalate -initiate amoxicillin/K+ clavulanate 500 mg p.o. Q 8 hours give through PEG tube - MRSA PCR negative - sputum culture pending - nebs PRN - antipyretic PRN 11/15- Remains without O2 use Continue amoxicillin/K+ clavulanate 500 mg p.o. Q 8 hours give through PEG tube at Discharge to SNF (2) Urinary retention: Code(s): R33.9 - Retention of urine, unspecified Status: Acute Assessment and Plan: -continue to monitor -strict I&O (3) Uses wearable garment containing external defibrillator with attached monitor: Code(s): Z95.810 - Presence of automatic (implantable) cardiac defibrillator Status: Acute Assessment and Plan: Cardiology consulted appreciate recommendation and plan Plan to continue LifeVest at all times, limited medical therapy plans given severely reduced LV systolic dysfunction and current EF of 20% - battery changes QAM at 0900 - internal combustion engine subassembler and additional battery at bedside - tele monitoring - will have pt follow up with loans officer out-pt (4) Acute hypokalemia: Code(s): E87.6 - Hypokalemia Status: Resolved Assessment and Plan: Resolved 11/15 Potassium today 4.5 (5) Hypocalcemia: Code(s): E83.51 - Hypocalcemia Status: Resolved Assessment and Plan: Calcium is 8.4 11/15 Calcium today is 8.7 (6) Gastrointestinal tube present: Code(s): Z93.1 - Gastrostomy status Status: Acute Assessment and Plan: - XR of abdomen: G-tube, in good position. - antiemetics PRN - continue IV fluids Pt current nutrition is Jevity 1.5 at 28 ml/hr.? Nutrition recommendation:? Jevity 1.5 at 40 ml/hr - Q6H glucose checks and hypoglycemia protocol in place 11/15- G-tube in place and recieving feed without issue- Dietary provided recommendations for continued tube feedings at discharge. Patient denies abdominal pain. am glucose 130 (7) Altered mental status: Qualifiers: Altered mental status type: unspecified Qualified Code(s): R41.82 - Altered mental status, unspecified Code(s): R41.82 - Altered mental status, unspecified Status: Resolved Assessment and Plan: resolved pt is a/o x 3 -continue to monitor 11/15- Alert and oriented x 4 (8) Hypertension: Qualifiers: Hypertension type: unspecified Qualified Code(s): I10 - Essential (primary) hypertension Code(s): I10 - Essential (primary) hypertension Status: Acute Assessment and Plan: 11/15- BP 125/44 F/U with [facility] loans officer (9) Atrial fibrillation with RVR: Code(s): I48.91 - Unspecified atrial fibrillation Status: Acute Assessment and Plan: 11/15- Per cardiology remains in sinus rhythm on telemetry. Continue metoprolol and apixaban (10) CVA (cerebral vascular accident): Code(s): I63.9 - Cerebral infarction, unspecified Status: Chronic Assessment and Plan: 11/15- Hx of bilateral multiple acute/subacute strokes. Per cardiology note, likley related to atrial fibrillation. Continue atorvastatin at discharge. Plan 11/14- Originally was going to discharge donis
[2023-11-15 12:33] LABS: Glucose Point of Care 97 mg/dl (65-105)
[2023-11-15 17:34] LABS: Glucose Point of Care 121 mg/dl (65-105)
[2023-11-15] MEDS: LINEZOLID 600 MG TABLET FEED TUBE (21:07)
[2023-11-16] VITALS (13 sets, daily range): BP systolic 94–118; BP diastolic 42–48; PULSE 70–110; RESP 16–20; TEMP 36.2–37; O2SAT 94–98
[2023-11-16 00:40] LABS: Glucose Point of Care 134 mg/dl (65-105)
[2023-11-16 05:25] LABS: Basophils Percent Auto 0.6 % (0.2-1.2); Eosinophils Absolute Auto 0.4 K/mm3 (0-0.3); Eosinophils Percent Auto 5.5 % (0-4.4); Hematocrit 29.2 % (37.0-47.0); Hemoglobin 9.2 g/dL (12.0-15.0); Immature Granulocyte Absolute 0.02 K/mm3 (0.00-0.031); Immature Granulocyte Percent A 0.3 % (0-0.5); Lymphocytes Absolute Auto 0.93 K/mm3 (0.9-3.2); Lymphocytes Percent Auto 14.1 % (18.3-44.2); Mean Corpuscular HGB Conc 31.5 g/dl (32-36); Mean Corpuscular Hemoglobin 32.1 pg (26-34); Mean Corpuscular Volume 101.7 fl (80-100); Mean Platelet Volume 11.1 fl (7.4-10.4); Monocytes Absolute Auto 0.6 K/mm3 (0.1-0.6); Monocytes Percent Auto 9.7 % (2.6-8.5); Neutrophils Absolute Auto 4.6 K/mm3 (1.3-6.7); Neutrophils Percent Auto 69.8 % (45.5-73.1); Platelet Count Result 267 k/mm3 (150-375); Red Blood Count 2.87 M/mm3 (4.2-5.4); Red Cell Distribution Width 14.7 % (11.5-14.5); White Blood Count 6.6 K/mm3 (4.5-10.0)
[2023-11-16 05:50] LABS: Alanine Aminotransferase 47 U/L (6-35); Albumin Level 2.9 g/dL (3.5-5.1); Alkaline Phosphatase 100 U/L (38-126); Anion Gap -2 mmol/L (8-16); Aspartate Amino Transferase 55 U/L (14-36); Bilirubin,Total 0.5 mg/dL (0.2-1.3); Blood Urea Nitrogen 21 mg/dL (7-17); Calcium 8.7 mg/dL (8.4-10.2); Carbon Dioxide 32 mmol/L (22-30); Chloride 99 mmol/L (98-107); Estimated CRCL calculation 72 ml/min; Estimated Glomerular Filt Rate > 60; Glucose 117 mg/dL (65-110); Potassium 4.5 mmol/L (3.4-5.0); Sodium 129 mmol/L (137-145)
[2023-11-16] MEDS: METOCLOPRAMIDE HCL 10 MG TABLET FEED TUBE (06:19)
[2023-11-16] MEDS: AMOXICILLIN/CLAVULANATE K SUSP 400-57 MG/5 ML 50 ML BOTTLE 500 MG PO ×3 (06:19→21:15)
[2023-11-16 06:23] LABS: Glucose Point of Care 121 mg/dl (65-105)
[2023-11-16] MEDS: ATORVASTATIN 40 MG TABLET 80 MG FEED TUBE (08:24)
[2023-11-16] MEDS: FUROSEMIDE 40 MG TABLET FEED TUBE (08:25)
[2023-11-16] MEDS: TAMSULOSIN HCL 0.4 MG CAPSULE PO (08:25)
[2023-11-16] MEDS: PANTOPRAZOLE SODIUM IV 40 MG VIAL IV PUSH (08:25)
[2023-11-16] MEDS: METOPROLOL TARTRATE 12.5 MG TABLET FEED TUBE ×2 (08:25→21:15)
[2023-11-16] MEDS: APIXABAN 5 MG TABLET FEED TUBE ×2 (08:25→21:15)
[2023-11-16] MEDS: lisinopriL 5 MG TABLET FEED TUBE (08:25)
[2023-11-16] MEDS: LINEZOLID 600 MG TABLET FEED TUBE ×2 (08:26→21:15)
[2023-11-16] MEDS: SODIUM CHLORIDE 0.9% IV 1,000 ML 75 ML IV CONT ×2 (08:39→21:17)
--- NOTE | 2023-11-16 08:53 | P.CDI_ITS ---
A/O x3. Treating UTI and Pneumonia that may have caused AMS CDI Query Clarification Request Documentation in the medical record indicates that this patient has been diagnosed as having the symptoms of ALTERED MENTAL STATUS. Additional findings also documented in the medical record: Infection : Pneumonia, UTI, Sepsis noted Abnormal lab values: NA 130, 11/12/23 Urine Culture positive VRE Based on your medical judgement , can you further clarify in the progress notes if these findings associated with altered mental status are due to a definite or suspected underlying neurologic cause such as: * Metabolic Encephalopathy * Toxic Encephalopathy * Altered mental status without encephalopathy * None of the above/ Not applicable.
[2023-11-16] MEDS: ACETAMINOPHEN ELIXIR 325 MG/10.15 ML UDC PO (11:26)
[2023-11-16 12:33] LABS: Glucose Point of Care 136 mg/dl (65-105)
--- NOTE | 2023-11-16 15:26 | WPDURCON ---
Assessment and Plan Assessment and plan (1) Urinary retention: Code(s): R33.9 - Retention of urine, unspecified Status: Acute Assessment and Plan: Most likely related to CVA, probably worsened due to UTI. Would recommend continuing stanley catheter for duration of treatment for UTI then proceed with void trial. This can be completed at her rehab facility. If unsuccessful, would recommend outpatient follow up for urodynamics. (2) UTI (urinary tract infection): Code(s): N39.0 - Urinary tract infection, site not specified Status: Acute Assessment and Plan: Urine culture with growth of VRE. Continue Linezolid per primary team. Urology Consult Note HPI Date Seen: 11/16/23 Requesting Physician: Ji Scales MD Primary Care Provider: Jose Thomas MD Consult Narrative Narrative: Taylor Alcaraz is a 78 year old female with a history of recent CVA who is being seen in consultation for urinary retention. Her son is present at the bedside who provided the majority of history. She was recently hospitalized at [place] for acute CVA and during her admission she had a stanley catheter. This was removed prior to discharge to [facility]. He reports there she was incontinent but at some point it was noted that she was not emptying well and a stanley catheter was replaced. This has been continued throughout her hospital admission. Per nursing staff, last night the stanley was clamped but she never had the urge to void therefore the stanley was not removed. It is in place at this time draining clear yellow urine. Her urine culture is positive, with growth of VRE. She is currently on linezolid and augmentin. She has no complaints at the time of my evaluation. Her creatinine is 0.4. WBC is 6.6. She is afebrile and her vital signs are stable. Review of Systems Review of Systems: All systems reviewed & are unremarkable except as noted in HPI and below PMFSH Past Medical History Medical History Atrial fibrillation with RVR COPD (chronic obstructive pulmonary disease) CVA (cerebral vascular accident) Dislodged gastrostomy tube Dysphagia Gastrointestinal tube present Hyperlipidemia Hypertension Uses wearable garment containing external defibrillator with attached monitor Surgical History Surgical History History of gastrostomy tube placement Social History Social History Smoking status: Current every day smoker Tobacco type: cigarettes Alcohol intake: never Substance use: never Substance use type: does not use Spiritual care concerns: No Meds Home Medications and Allergies Home Medications Medication Instructions Recorded Confirmed Type atorvastatin 80 mg tablet 80 mg feeding tube DAILY 11/07/23 11/12/23 History furosemide 40 mg tablet (Lasix) 40 mg feeding tube DAILY 11/07/23 11/12/23 History ipratropium 0.5 mg-albuterol 3 mg 3 ml inhalation Q4H PRN Shortness 11/07/23 11/12/23 History (2.5 mg base)/3 mL nebulization Of Breath soln lisinopril 5 mg tablet 5 mg feeding tube DAILY 11/07/23 11/12/23 History metoprolol tartrate 25 mg tablet 12.5 mg feeding tube BID 11/07/23 11/12/23 History miconazole nitrate 2 % topical 1 applic topical Q10-12H 11/10/23 11/12/23 History cream calcium carbonate 200 mg calcium 200 mg PO Q6H PRN Indigestion 11/12/23 11/12/23 History (500 mg) chewable tablet meclizine 12.5 mg tablet 12.5 mg PO TID PRN Vertigo 11/12/23 11/12/23 History metoclopramide HCl 10 mg tablet See Rx Instructions .Route .COMPLEX 11/12/23 11/12/23 History saliva stimulant comb. no.3 1 applic mucous membrane Q4H 11/12/23 11/12/23 History (Biotene Moisturizing Mouth mucosal spray) tamsulosin 0.4 mg capsule 0.4 mg PO DAILY 11/12/23 11/12/23 History amoxicillin 400 mg-potassium 6.5 ml
[2023-11-16 17:18] LABS: Glucose Point of Care 128 mg/dl (65-105)
--- NOTE | 2023-11-16 18:28 | PM.IMPN ---
Progress Note: A&P Assessment and Plan (1) Pneumonia: Qualifiers: Laterality: right Lung location: lower lobe of lung Pneumonia type: due to unspecified organism Qualified Code(s): J18.9 - Pneumonia, unspecified organism Code(s): J18.9 - Pneumonia, unspecified organism Status: Acute Assessment and Plan: -procalcitonin 0.3, not requiring oxygen, denies SOB ?CT of the abd/pelvis showed extensive tree-in-bud opacities in the bilateral lower lobes, right greater than left consistent with endobronchial spread of disease most likely pneumonia. Mild bronchiectasis and associated scarring the right middle lobe. Pharmacy consult, cefepime IV and vanc IV deescalate -initiate amoxicillin/K+ clavulanate 500 mg p.o. Q 8 hours give through PEG tube - MRSA PCR negative - sputum culture pending - nebs PRN - antipyretic PRN 11/15- Remains without O2 use Continue amoxicillin/K+ clavulanate 500 mg p.o. Q 8 hours give through PEG tube at Discharge to SNF 11/16- Lungs dimished but clear, no increased respiratory effort noted, on room air. Continue Augmentin per Gtube (2) Urinary retention: Code(s): R33.9 - Retention of urine, unspecified Status: Acute Assessment and Plan: -continue to monitor -strict I&O 11/16- urine culture resulted reveals VRE. Addressing this urinary tract infection Zyvox per G-Tube order per ID consultation. Per cardiology medication appropriate as patient NSR attempted voiding trial overnight with clamping to remove stanley, attempt failed. Continue flomax and stanley and placed urology consult. Urology saw patient and noted retention is most likely related to CVA, probably worsened due to UTI. Would recommend continuing stanley catheter for duration of treatment for UTI then proceed with void trial. This can be completed at her rehab facility. If unsuccessful, would recommend outpatient follow up for urodynamics. (3) Uses wearable garment containing external defibrillator with attached monitor: Code(s): Z95.810 - Presence of automatic (implantable) cardiac defibrillator Status: Acute Assessment and Plan: Cardiology consulted appreciate recommendation and plan Plan to continue LifeVest at all times, limited medical therapy plans given severely reduced LV systolic dysfunction and current EF of 20% - battery changes QAM at 0900 - juvenile detention officer and additional battery at bedside - tele monitoring - will have pt follow up with resolution expert out-pt (4) Acute hypokalemia: Code(s): E87.6 - Hypokalemia Status: Resolved Assessment and Plan: Resolved 11/15 Potassium today 4.5 11/16 Potassium remain 4.5 (5) Hypocalcemia: Code(s): E83.51 - Hypocalcemia Status: Resolved Assessment and Plan: Calcium is 8.4 11/15 Calcium today is 8.7 11/16 Calcium remains 8.7 (6) Gastrointestinal tube present: Code(s): Z93.1 - Gastrostomy status Status: Acute Assessment and Plan: - XR of abdomen: G-tube, in good position. - antiemetics PRN - continue IV fluids Pt current nutrition is Jevity 1.5 at 28 ml/hr.? Nutrition recommendation:? Jevity 1.5 at 40 ml/hr - Q6H glucose checks and hypoglycemia protocol in place 11/15- G-tube in place and recieving feed without issue- Dietary provided recommendations for continued tube feedings at discharge. Patient denies abdominal pain. am glucose 130 11/16- G-tube without issue no abdominal pain per patient am glucose 117 Jevity 1.5 at 40 ml/hr (7) Altered mental status: Qualifiers: Altered mental status type: unspecified Qualified Code(s): R41.82 - Altered mental status, unspecified Code(s): R41.82 - Altered mental status, unspecified Status: Resolved Assessment and Plan: resolved pt is a/o x 3 -continue to monitor 11/15- Alert and oriented x 4 11/16- Altered mental status upon admission likely due to infection of UTI/ Pne
[2023-11-17] VITALS: PULSE 86
[2023-11-17 04:00] VITALS: PULSE 73
[2023-11-17] MEDS: METOCLOPRAMIDE HCL 10 MG TABLET FEED TUBE (05:21)
[2023-11-17 05:22] LABS: Basophils Percent Auto 0.5 % (0.2-1.2); Eosinophils Absolute Auto 0.3 K/mm3 (0-0.3); Eosinophils Percent Auto 3.3 % (0-4.4); Hematocrit 27.9 % (37.0-47.0); Hemoglobin 8.8 g/dL (12.0-15.0); Immature Granulocyte Absolute 0.04 K/mm3 (0.00-0.031); Immature Granulocyte Percent A 0.5 % (0-0.5); Lymphocytes Percent Auto 9.3 % (18.3-44.2); Mean Corpuscular HGB Conc 31.5 g/dl (32-36); Mean Corpuscular Hemoglobin 32.4 pg (26-34); Mean Corpuscular Volume 102.6 fl (80-100); Mean Platelet Volume 10.8 fl (7.4-10.4); Monocytes Absolute Auto 0.7 K/mm3 (0.1-0.6); Monocytes Percent Auto 7.8 % (2.6-8.5); Neutrophils Absolute Auto 6.8 K/mm3 (1.3-6.7); Neutrophils Percent Auto 78.6 % (45.5-73.1); Platelet Count Result 247 k/mm3 (150-375); Red Blood Count 2.72 M/mm3 (4.2-5.4); Red Cell Distribution Width 14.8 % (11.5-14.5); White Blood Count 8.6 K/mm3 (4.5-10.0)
[2023-11-17] MEDS: AMOXICILLIN/CLAVULANATE K SUSP 400-57 MG/5 ML 50 ML BOTTLE 500 MG PO (05:22)
[2023-11-17 05:38] LABS: Alanine Aminotransferase 48 U/L (6-35); Albumin Level 2.8 g/dL (3.5-5.1); Alkaline Phosphatase 112 U/L (38-126); Anion Gap 1 mmol/L (8-16); Aspartate Amino Transferase 43 U/L (14-36); Bilirubin,Total 0.4 mg/dL (0.2-1.3); Blood Urea Nitrogen 20 mg/dL (7-17); Calcium 8.5 mg/dL (8.4-10.2); Carbon Dioxide 31 mmol/L (22-30); Chloride 101 mmol/L (98-107); Estimated CRCL calculation 59 ml/min; Estimated Glomerular Filt Rate > 60; Glucose 119 mg/dL (65-110); Potassium 3.9 mmol/L (3.4-5.0); Sodium 133 mmol/L (137-145)
[2023-11-17 06:00] VITALS: BP 141/49; PULSE 71; RESP 20; TEMP 36.8; O2SAT 98
[2023-11-17 08:00] VITALS: PULSE 71
[2023-11-17] MEDS: PANTOPRAZOLE SODIUM IV 40 MG VIAL IV PUSH (08:53)
[2023-11-17] MEDS: TAMSULOSIN HCL 0.4 MG CAPSULE PO (08:54)
[2023-11-17] MEDS: APIXABAN 5 MG TABLET FEED TUBE (08:54)
[2023-11-17] MEDS: ATORVASTATIN 40 MG TABLET 80 MG FEED TUBE (08:54)
[2023-11-17] MEDS: LINEZOLID 600 MG TABLET FEED TUBE (08:54)
[2023-11-17 09:04] LABS: Glucose Point of Care 127 mg/dl (65-105)
--- NOTE | 2023-11-17 09:45 | WPDUROPN2 ---
Progress Note: A&P Assessment and Plan (1) Urinary retention: Code(s): R33.9 - Retention of urine, unspecified Status: Acute Assessment and Plan: Most likely related to CVA given timing/onset, probably worsened due to UTI. Would recommend continuing stanley catheter for duration of treatment for UTI then proceed with void trial. This can be completed at her rehab facility. If unsuccessful, would recommend outpatient follow up for urodynamics. (2) UTI (urinary tract infection): Code(s): N39.0 - Urinary tract infection, site not specified Status: Acute Assessment and Plan: Urine culture with growth of VRE. Continue Linezolid via G-tube per primary team. Subjective Subjective Date/Time Seen: 11/17/23 09:45 Interval history: Taylor is doing well today. Appears more alert. She has no complaints. No issues with her stanley catheter which is draining clear, yellow urine. Review of Systems Review of Systems: All systems reviewed & are unremarkable except as noted in HPI and below Exam Narrative: General: Thin, frail female, awake, alert, comfortable, no acute distress HEENT: Normocephalic, atraumatic, sclerae anicteric Respiratory: Normal respiratory effort, no accessory muscle use Abdomen: Nondistended, soft, nontender : stanley catheter draining clear yellow urine Skin: Normal coloration, warm and dry Neurologic: trouble with speech Psychiatric: Appropriate mood and affect, judgment and insight intact Objective Data Vital Signs Vital Signs: Vital Signs - 24 hr 11/16/23 11:30 11/16/23 13:31 11/16/23 14:00 Temperature 98.6 F Pulse Rate 85 Respiratory Rate 16 Blood Pressure 94/42 L 94/42 L Pulse Oximetry 97 Oxygen Delivery Room Air 11/16/23 12:00 11/16/23 16:00 11/16/23 21:15 Temperature Pulse Rate 110 H 83 70 Respiratory Rate Blood Pressure Pulse Oximetry Oxygen Delivery 11/16/23 20:00 11/16/23 20:00 11/16/23 22:21 Temperature 97.1 F L Pulse Rate 88 70 81 Respiratory Rate 16 20 Blood Pressure 117/47 L Pulse Oximetry 97 98 Oxygen Delivery Room Air 11/17/23 00:00 11/17/23 04:00 11/17/23 06:00 Temperature 98.2 F Pulse Rate 86 73 71 Respiratory Rate 20 Blood Pressure 141/49 H Pulse Oximetry 98 Oxygen Delivery Intake/Output Intake/Output: Intake & Output 11/14/23 11/15/23 11/16/23 11/17/23 23:59 23:59 23:59 23:59 Intake Total 3050 1966 1367 1057 Output Total 2575 2400 1425 800 Balance 722 -434 -38 257 Meds/Results Medications: Active Medications Generic Name Dose Route Start Last Admin Trade Name Freq PRN Reason Stop Dose Admin Acetaminophen 325 mg 11/12/23 14:51 11/16/23 11:26 Acetaminophen Elixir 325 Mg/10.15 Ml Udc PO 325 mg Q6H PRN Administration Mild Pain (1-3) or Fever Albuterol/Ipratropium 3 ml 11/12/23 14:50 Ipratropium 0.5 Mg/Albuterol Sulfate 2.5 Mg Ampul.Neb 3 Ml INHALATION Q6HRT PRN Shortness Of Breath Or Wheezing Albuterol/Ipratropium 3 ml 11/13/23 21:49 Ipratropium 0.5 Mg/Albuterol Sulfate 2.5 Mg Ampul.Neb 3 Ml INHALATION Q4H PRN Shortness Of Breath Amoxicillin/Clavulanate Potassium 500 mg 11/14/23 10:00 11/17/23 05:22 Amoxicillin/Clavulanate K Susp 400-57 Mg/5 Ml 50 Ml Bottle PO 11/18/23 22:01 500 mg Q8HR JOSE RAUL Administration Apixaban 5 mg 11/13/23 21:00 11/17/23 08:54 Apixaban 5 Mg Tablet FEED TUBE 5 mg Q12HR JOSE RAUL Administration Atorvastatin Calcium 80 mg 11/14/23 09:00 11/17/23 08:54 Atorvastatin 40 Mg Tablet FEED TUBE 80 mg DAILY JOSE RAUL Administration Calcium Carbonate 200 mg 11/13/23 21:49 Calcium Carbonate (Tums) 500 Mg (200 Mg Elemental) PO Q6H PRN Indigestion Dextrose 12.5 gm 11/12/23 17:02 Dextrose 50% 25 Gm/50 Ml Syringe IV PUSH PRN PRN Hypoglycemia Protocol Furosemide 40 mg 11/14/23 09:00 11/16/23 08:25 Furosemide 40 Mg Tablet
--- NOTE | 2023-11-17 10:26 | PCNFU ---
Nutrition Follow-Up Complete: Inadequate energy intake related to tube feeding intolerance as evidenced by need for full tube feeding; outside report Goal: Tolerate tube feeding at goal rate Patient is meeting goal. No new goal. Pt current nutrition is Jevity 1.5 at 40 ml/hr. Last recorded weight is 47.6 kg, no new weight to report-recommend reweigh. Bowel Motility: +BM reported 11/17 Labs Reviewed:Glu 119, BUN 20, Cr 0.5, ,Alb 2.8 Meds Noted:Eliquis, Reglan, Lopressor, Protonix Skin: WNL Additional Notes: Patient remains on PEG tube feedings of Jevity 1.5 at 40 ml/hr and tolerating per nursing. Flush 100 ml q 4hours. Tube feedings meeting 1320 kcals/56 gms protein/669 ml water. Plans for discharge today. Agree with diet orders. Monitoring tolerance, labs, bowel patterns, weights, plan of care Follow up Monday and Monday per policy
[2023-11-17 11:10] VITALS: PULSE 81
[2023-11-17] MEDS: METOPROLOL TARTRATE 12.5 MG TABLET FEED TUBE (11:10)
[2023-11-17] MEDS: FUROSEMIDE 40 MG TABLET FEED TUBE (11:10)
[2023-11-17] MEDS: SODIUM CHLORIDE 0.9% IV 1,000 ML 75 ML IV CONT (11:12)
[2023-11-17 12:00] VITALS: PULSE 66
--- NOTE | 2023-11-17 12:18 | PM.DS ---
DS: Admitting Diagnosis Discharge Date 11/17/23 Admitting Diagnosis Pneumonia/ UTI/ Sepsis/ Hypoglycemia DS: Discharge Diagnosis Discharge Diagnosis (1) Pneumonia: Qualifiers: Laterality: right Lung location: lower lobe of lung Pneumonia type: due to unspecified organism Qualified Code(s): J18.9 - Pneumonia, unspecified organism Code(s): J18.9 - Pneumonia, unspecified organism Status: Acute Assessment and Plan: -procalcitonin 0.3, not requiring oxygen, denies SOB ?CT of the abd/pelvis showed extensive tree-in-bud opacities in the bilateral lower lobes, right greater than left consistent with endobronchial spread of disease most likely pneumonia. Mild bronchiectasis and associated scarring the right middle lobe. Pharmacy consult, cefepime IV and vanc IV deescalate -initiate amoxicillin/K+ clavulanate 500 mg p.o. Q 8 hours give through PEG tube - MRSA PCR negative - sputum culture pending - nebs PRN - antipyretic PRN 11/15- Remains without O2 use Continue amoxicillin/K+ clavulanate 500 mg p.o. Q 8 hours give through PEG tube at Discharge to SNF 11/16- Lungs dimished but clear, no increased respiratory effort noted, on room air. Continue Augmentin per Gtube 11/17; LCTAB, no increased respiratory effort noted, on room air. Continue amoxicillin/K+ clavulanate 500 mg p.o. Q 8 hours Gtube (2) Urinary retention: Code(s): R33.9 - Retention of urine, unspecified Status: Acute Assessment and Plan: -continue to monitor -strict I&O 11/16- urine culture resulted reveals VRE. Addressing this urinary tract infection Zyvox per G-Tube order per ID consultation. Per cardiology medication appropriate as patient NSR attempted voiding trial overnight with clamping to remove stanley, attempt failed. Continue flomax and stanley and placed urology consult. Urology saw patient and noted retention is most likely related to CVA, probably worsened due to UTI. Would recommend continuing stanley catheter for duration of treatment for UTI then proceed with void trial. This can be completed at her rehab facility. If unsuccessful, would recommend outpatient follow up for urodynamics. 11/17- most likely related to CVA, probably worsened due to UTI. Stanley in place and draining without issue. She will discharge with stanley and per urology can attempt trials at SNF. Potentially due to urinary tract infection. urine culture resulted prior to pt discharge reveals VRE. Addressing this urinary tract infection Zyvox per G-Tube order per ID consultation. OK to discharge and follow up with urology if further issue (3) Uses wearable garment containing external defibrillator with attached monitor: Code(s): Z95.810 - Presence of automatic (implantable) cardiac defibrillator Status: Acute Assessment and Plan: Cardiology consulted appreciate recommendation and plan Plan to continue LifeVest at all times, limited medical therapy plans given severely reduced LV systolic dysfunction and current EF of 20% - battery changes QAM at 0900 - dewatering filtering supervisor and additional battery at bedside - tele monitoring - will have pt follow up with management development specialist out-pt (4) Acute hypokalemia: Code(s): E87.6 - Hypokalemia Status: Resolved Assessment and Plan: Resolved 11/15 Potassium today 4.5 11/16 Potassium remain 4.5 11/17 K is 3.9 (5) Hypocalcemia: Code(s): E83.51 - Hypocalcemia Status: Resolved Assessment and Plan: Calcium is 8.4 11/15 Calcium today is 8.7 11/16 Calcium remains 8.7 11/17 Ca 8.5 (6) Gastrointestinal tube present: Code(s): Z93.1 - Gastrostomy status Status: Acute Assessment and Plan: - XR of abdomen: G-tube, in good position. - antiemetics PRN - continue IV fluids Pt current nutrition is Jevity 1.5 at 28 ml/hr.? Nutrition recommendation:? Jevity 1.5 at 40 ml/hr - Q6H glucose checks and hypoglycemia protocol in place 11/15- G-tube in p
[2023-11-17 12:47] LABS: Glucose Point of Care 130 mg/dl (65-105)
[2023-11-19 08:09] LABS: Legionella pneumophila Ag Ur Not Detected (Not Detected); Pneumococcal Antigen Urine Not Detected (Not Detected)
== END 2023-11-17 13:46 | DRG 871 ==
LOC: ANHED 15:00 → ANH3MEDSUR 15:35 → ANH3MED 16:49
PROVIDERS: Nurse Practitioner; Admitting Provider Internal Medicine; Emergency Provider Preventive Medicine Aerospace Medicine; PCP Hospitalist; Visit Provider Nurse Practitioner Family
DX: A41.9 Sepsis, unspecified organism (principal); E43 Unspecified severe protein-calorie malnutrition; J18.9 Pneumonia, unspecified organism; N39.0 Urinary tract infection, site not specified; Z16.21 Resistance to vancomycin; I69.351 Hemiplegia and hemiparesis following cerebral infarction affecting right dominant side; Z95.811 Presence of heart assist device; Z68.1 Body mass index [BMI] 19.9 or less, adult; I50.22 Chronic systolic (congestive) heart failure; I43 Cardiomyopathy in diseases classified elsewhere; J44.0 Chronic obstructive pulmonary disease with (acute) lower respiratory infection; B95.2 Enterococcus as the cause of diseases classified elsewhere; E78.5 Hyperlipidemia, unspecified; E87.6 Hypokalemia; E16.2 Hypoglycemia, unspecified; F17.210 Nicotine dependence, cigarettes, uncomplicated; I25.10 Atherosclerotic heart disease of native coronary artery without angina pectoris; I48.91 Unspecified atrial fibrillation; I69.391 Dysphagia following cerebral infarction; I11.0 Hypertensive heart disease with heart failure; R13.10 Dysphagia, unspecified; R33.9 Retention of urine, unspecified; Z79.01 Long term (current) use of anticoagulants; Z99.3 Dependence on wheelchair; Z93.1 Gastrostomy status
CPT/HCPCS: 36415; 70450; 71045; 74177; 80048; 80053; 80061; 81001; 82948; 83605; 84145; 85025; 85610; 85730; 86140; 87040; 87086; 87181; 87449; 87641; 87899; 92526; 92610; 92611; 93005; 96361; 96365; 96367; 96375; 96376; 97110; 97162; 97165; 97530; 99285; A9270; C9113; G0378; J0612; J0692; J3370; J3475; J3480; J7030; J7120; Q9967

== ENCOUNTER 2023-12-28 23:41 | Inpatient (IN) | payer MEDICARE, SELFPAY ==
--- NOTE | ~2023-12-28 | CT_ITS ---
EXAMINATION: CTA chest PE abdomen pel DATE: 12/29/2023 03:15 INDICATION: Sepsis. TECHNIQUE: Computed tomography angiography (CTA) of the chest was performed with 90 mL Omnipaque-350 intravenous contrast timed to evaluate the pulmonary arteries. Coronal maximum intensity projection 3 D-reconstructions were created by the technologist. Computed tomography (CT) of the abdomen and pelvi s was performed with intravenous contrast. Automated exposure control and iterative reconstruction te chnique were employed. The dose-length product was 326.50 mGy-cm. COMPARISON: CT abdomen and pelvis 11/12/2023 FINDINGS: CTA chest: There is mild scarring at the lung apices. There is mild emphysema. There are tree-in-bud opacities and centrilobular nodules in the right middle lobe, lingula, and lower lobes, consistent wi th pneumonia. Calcified bilateral lung nodules and calcified hilar lymph nodes are consistent with ol d granulomatous disease. There are small pleural effusions. The heart size is normal. There are coron evie artery calcifications. No pericardial effusion. There is no pulmonary embolus. There is mild left hilar lymphadenopathy, likely reactive. There is mild chronic anterior wedging of multiple thoracic vertebral bodies. There is moderate thoracic spondylosis. There are changes of anterior and posterior fusion procedures in cervical spine. CT abdomen and pelvis: Calcifications in the liver and spleen are consistent with old granulomatous d isease. The common duct measures 10 mm, which is normal status post cholecystectomy. The pancreas, ad renal glands, and kidneys are normal. There are no dilated loops of bowel. There is a gastrostomy tub e in expected position. The appendix is not visualized. There is calcified atherosclerosis of the aor ta and many of the other arteries. There are no pathologically enlarged lymph nodes. There is no free intraperitoneal fluid. The bladder is decompressed by a Samson catheter. There is severe lumbar spond ylosis. There are changes of posterior fusion procedure from L3 to L5 with pedicle screws. IMPRESSION: 1. No pulmonary embolus. 2. Pneumonia involving the right middle lobe, lingula, and lower lobes. 3. Mild emphysema. 4. Small pleural effusions. Reviewed, dictated and finalized at location A.
--- NOTE | ~2023-12-28 | XR_ITS ---
Portable chest x-ray Comparison: 12/29/2023 Clinical History: Pneumonia Findings: Left lower lobe consolidation present. Probable underlying COPD. Stable right IJ line. Ca rdiomediastinal silhouette is stable. Bones and soft tissues are unremarkable. Impression: Left lower lobe consolidation. COPD. Stable support line. Reviewed, dictated and finalized at location . Impression: Left lower lobe consolidation. COPD. Stable support line.
--- NOTE | ~2023-12-28 | XR_ITS ---
EXAMINATION: XR chest port-a-cath/central Exam Date/Time: 12/29/2023 19:58 CDT HISTORY: confirm central line position Comparison: Same date at 2:19 AM. RESULT: Lines, tubes, and devices: External defibrillator removal. New right IJ central line terminating in the right atrium. Cervical fusion hardware. G-tube over the stomach bubble. Lungs and pleura: Increasing bibasilar airspace disease, more evident in the left lung base. Mild le ft costophrenic angle blunting. Stable mild diffuse reticular opacities. Cardiomediastinal silhouette: Stable. Other: No acute osseous or upper abdominal finding. IMPRESSION: Worsening bibasilar opacities may represent worsening infection and/or atelectasis. Mild interstitial edema. Small left pleural effusion. Right IJ central line terminates in the right atrium. Reviewed, dictated and finalized at [facility]. IMPRESSION: Worsening bibasilar opacities may represent worsening infection and/or atelecta sis. Mild interstitial edema. Small left pleural effusion. Right IJ central jens e terminates in the right atrium.
--- NOTE | ~2023-12-28 | XR_ITS ---
EXAMINATION: XR chest 1V portable DATE: 12/29/2023 00:34 INDICATION: Shortness of breath. Chest pain. TECHNIQUE: A single frontal view of the chest was obtained. COMPARISON: Chest single view 11/12/2023 FINDINGS: The lungs are hyperexpanded, consistent with emphysema. There is mild scarring at the lung apices. There are airspace opacities in the lower lung zones. There is a small left pleural effusion. No pneumothorax. The heart size is normal. There are changes of anterior fusion procedure in cervica l spine. IMPRESSION: 1. Airspace opacities in the lower lung zones, consistent with pneumonia. 2. Small left pleural effusion. 3. Emphysema. Reviewed, dictated and finalized at location A.
--- NOTE | ~2023-12-28 | XR_ITS ---
EXAMINATION: XR barium swallow modified DATE: 12/30/2023 10:27 INDICATION: Dysphagia. TECHNIQUE: The patient was given barium-containing material of multiple consistencies to swallow by jose gonzalez speech pathologist while I performed fluoroscopy. Dose-area product was 0.288 Gy-cm2. 0.8 minutes fluoroscopy time FINDINGS: Oral Stage: Within functional limits Pharyngeal Phase: Reduced laryngeal elevation, reduced tongue base retraction, Vallecular and piriform sinus residue Laryngeal penetration and silent aspiration Cervical/Esophageal Stage: Within functional limits IMPRESSION: Modified esophagram findings as above. Please refer to the [facility]. Reviewed, dictated and finalized at Location [facility]. Reviewed, dictated and finalized at location A. IMPRESSION: Modified esophagram findings as above. Please refer to the speech t herapy report for specific recommendations.
--- NOTE | ~2023-12-28 | XR_ITS ---
EXAMINATION: XR chest port-a-cath/central DATE: 12/29/2023 02:29 INDICATION: Central line placement. TECHNIQUE: A single frontal view of the chest was obtained on 2 radiographs. COMPARISON: Chest single view 12/29/2023 at 12:14 AM, chest CT 12/29/2023 FINDINGS: The lungs are hyperexpanded, consistent with emphysema. There is mild scarring at the lung apices. There are airspace opacities in the lower lung zones. There is a small left pleural effusion. No pneumothorax. The heart size is normal. There are changes of anterior fusion procedure in cervica l spine. A right internal jugular central venous catheter is seen with tip at the superior cavoatrial junction. IMPRESSION: 1. Central line tip at the superior cavoatrial junction. 2. Airspace opacities in the lower lung zones, consistent with pneumonia. 3. Stable small left pleural effusion. 4. Emphysema. Reviewed, dictated and finalized at location A.
[2023-12-28 23:41] VITALS: BP 94/55; PULSE 150; RESP 25; TEMP 38.3; O2SAT 96
--- NOTE | 2023-12-28 23:47 | ECG_ITS ---
Measurements Intervals [place] Rate: 146 P: -63 ME: 91 QRS: 70 QRSD: 138 T: 90 QT: 316 QTc: 493 Interpretive Statements SUSPECT ATRIAL FLUTTER LEFT BUNDLE BRANCH BLOCK ABNORMAL ECG COMPARED TO ECG 11/12/2023 10:32:23 NO SIGNIFICANT CHANGES Electronically Signed On 12-29-2023 7:45:55 CDT by Jose Thurman M.D.
[2023-12-29] VITALS (52 sets, daily range): BP systolic 83–173; BP diastolic 6–76; PULSE 67–150; RESP 10–33; TEMP 36.3–37.2; O2SAT 93–100; BMI 18.2
--- NOTE | 2023-12-29 | ECHO_ITS ---
Patient Info Name: Taylor Alcaraz Age: 78 years : 1945 Gender: Female Ht: 62 in Wt: 99 lbs BSA: 1.39 m2 HR: 87 bpm Heart Rhythm: Sinus Rhythm Technical Quality: Good Exam Date: 12/29/2023 10:28 AM Exam Location: Echo Lab Patient Status: Inpatient Admit Date: 12/29/2023 Staff Ordering Physician: Tyrone Anderson MD Wire Fence Erector: Christal Rodriguez RDCS Attending Provider: Steve Azevedo MD Exam Type: CA echo doppler color flow Study Info Indications - CHF Complete two-dimensional, color flow and Doppler transthoracic echocardiogram is performed. Summary 1. Complete two-dimensional, color flow and Doppler transthoracic echocardiogram is performed. 2. Mild LV enlargement with mild global systolic dysfunction and septal contraction consistent with bundle branch block global ejection fraction visually estimated at 45%. 3. Grade 1 diastolic noncompliance. 4. Small amount of mitral regurgitation. 5. Mildly enlarged left atrium. Left Ventricle Left ventricular chamber dimension is mildly enlarged. Left ventricular systolic function is mildly reduced, estimated at 40-45%. The left ventricular diastolic function is grade I diastolic dysfunction. Right Ventricle Right ventricular chamber dimension is normal. Left Atria Left atrial chamber dimension is mildly enlarged. Right Atria Right atrial chamber dimension is normal. Aortic Valve The aortic valve is normal. Pulmonic Valve The pulmonic valve is normal. Mitral Valve The mitral valve has normal leaflets. There is mild mitral valve stenosis. Tricuspid Valve The tricuspid valve leaflets are normal. Pericardium/Pleural The pericardium appears normal. Aorta The aortic root size at the sinus of Valsalva is normal. Left Ventricular Outflow Tract Name Value Normal LVOT 2D LVOT Diameter 2.2 cm LVOT Doppler LVOT Peak Gradient 3 mmHg LVOT Mean Gradient 2 mmHg LVOT VTI 15 cm LVOT VTI/AV VTI Ratio 0.4 LVOT Stroke Volume 56 ml LVOT CO 3.8 l/min LVOT CI 2.8 l/min/m2 Pulmonic Valve Name Value Normal RVOT Doppler RVOT Peak Gradient 2 mmHg PV Doppler PV Peak Gradient 3 mmHg Mitral Valve Name Value Normal MV Doppler MV Decel Dickson 371 cm/s2 MV PHT 55 ms MV Area (PHT) 4.0 cm2 4.0-5.0 MV Regurgitation Doppler
[2023-12-29 00:20] LABS: Appearance Urine Clear (Clear); Bacteria Urine None Seen /hpf; Bilirubin Urine Negative (Negative); Blood Urine 1+ (Negative); Color Urine Yellow (Yellow); Glucose Urine UA Negative (Negative); Ketones Urine Negative (Negative); Leukocyte Esterase Ur 2+ LEU/UL (Negative); Nitrate Urine Negative (Negative); Non Pathogenic Casts 0-2; Protein Urine 1+ mg/dL (Negative); Specific Grav Ur 1.017 (1.001-1.035); Squamous Epithelial Cell Urine None Seen /hpf (Few); WBC Urine 51-100 /hpf (0-3)
[2023-12-29 00:23] LABS: Add Urine Microscopic? YES
[2023-12-29 00:23] LABS: Lactic Acid Reflex 2.1 mmol/L (0.7-2.0)
[2023-12-29] MEDS: SODIUM CHLORIDE 0.9% IV 1,000 ML 500 ML IV CONT (00:26)
[2023-12-29] MEDS: ACETAMINOPHEN 325 MG TABLET 650 MG PO (00:26)
[2023-12-29 00:36] LABS: Basophils Percent Auto 0.3 % (0.2-1.2); Eosinophils Percent Auto 0.2 % (0-4.4); Hematocrit 32.5 % (37.0-47.0); Hemoglobin 10.7 g/dL (12.0-15.0); Immature Granulocyte Absolute 0.03 K/mm3 (0.00-0.031); Immature Granulocyte Percent A 0.3 % (0-0.5); Lymphocytes Absolute Auto 0.34 K/mm3 (0.9-3.2); Lymphocytes Percent Auto 3.3 % (18.3-44.2); Mean Corpuscular HGB Conc 32.9 g/dl (32-36); Mean Corpuscular Hemoglobin 32.1 pg (26-34); Mean Corpuscular Volume 97.6 fl (80-100); Mean Platelet Volume 12.2 fl (7.4-10.4); Monocytes Absolute Auto 0.5 K/mm3 (0.1-0.6); Monocytes Percent Auto 4.5 % (2.6-8.5); Neutrophils Absolute Auto 9.5 K/mm3 (1.3-6.7); Neutrophils Percent Auto 91.4 % (45.5-73.1); Platelet Count Result 237 k/mm3 (150-375); Red Blood Count 3.33 M/mm3 (4.2-5.4); White Blood Count 10.4 K/mm3 (4.5-10.0)
[2023-12-29 00:39] LABS: Alanine Aminotransferase 37 U/L (6-35); Albumin Level 3.8 g/dL (3.5-5.1); Alkaline Phosphatase 176 U/L (38-126); Anion Gap 5 mmol/L (4-12); Aspartate Amino Transferase 49 U/L (14-36); Bilirubin,Total 0.7 mg/dL (0.2-1.3); Blood Urea Nitrogen 21 mg/dL (7-17); Calcium 9.2 mg/dL (8.4-10.2); Carbon Dioxide 31 mmol/L (22-30); Chloride 94 mmol/L (98-107); Estimated CRCL calculation 62 ml/min; Estimated Glomerular Filt Rate > 60; Glucose 145 mg/dL (65-110); Magnesium 1.7 mg/dL (1.6-2.3); Potassium 4.4 mmol/L (3.4-5.0); Sodium 130 mmol/L (137-145)
[2023-12-29 00:49] LABS: Influenza A QL RT-PCR Negative (Negative); Influenza B QL RT-PCR Negative (Negative); RSV RNA, RT-PCR Negative (Negative); SARS-CoV-2 RNA PCR Negative (Negative)
[2023-12-29 00:51] LABS: NT Pro B Type Natriuretic Pept 1350 pg/mL (19.9-100); Troponin I < 0.012 ng/mL (0.000-0.034)
--- NOTE | 2023-12-29 00:52 | ECG_ITS ---
Measurements Intervals [place] Rate: 96 P: 89 [place]: 149 QRS: 64 QRSD: 142 T: 244 QT: 366 QTc: 465 Interpretive Statements SINUS RHYTHM LEFT BUNDLE BRANCH BLOCK [120+ ms QRS DURATION, 80+ ms Q/S IN V1/V2, 85+ ms R IN I/aVL/V5/V6] COMPARED TO ECG 12/28/2023 23:52:15 ATRIAL FLUTTER IS NOW REPLACED BY SINUS RHYTHM Electronically Signed On 12-29-2023 7:47:11 CDT by Jose Thurman M.D.
[2023-12-29] MEDS: SODIUM CHLORIDE 0.9% IV 1,000 ML 999 ML IV CONT (00:58)
--- NOTE | 2023-12-29 00:59 | ED.GENADULT ---
HPI - General Adult General Chief complaint: Shortness of Breath/Dyspnea Stated complaint: sob Time Seen by Provider: 12/28/23 23:53 History of Present Illness HPI narrative: Patient is a 78-year-old female who presents to the emergency department this evening complaining of shortness of breath. Patient admits that she has been getting recurrent pneumonias and was recently discharged from our facility a few weeks ago after being treated for another episode of pneumonia. Patient is currently wearing a LifeVest due to cardiomyopathy and low ejection fraction of 20%. Patient is noted to be tachycardic, tachypneic, febrile and hypotensive on arrival. Patient denies any chest pain, any abdominal pain, any nausea, vomiting, dysuria or hematuria, constipation or diarrhea, melena, hematochezia, headaches, dizziness, blurry visions, focal weakness, numbness and tingling. There are no other modifying, alleviating, or precipitating factors at this time. Related Data Home Medications Medication Instructions Recorded Confirmed miconazole nitrate 2 % topical 1 applic topical Q12H PRN Rash 12/29/23 12/29/23 cream (Antifungal (miconazole)) Allergies Allergy/AdvReac Type Severity Reaction Status Date / Time No Known Allergies Allergy Verified 11/10/23 07:51 Review of Systems Review of Systems: All systems are reviewed and are negative unless stated otherwise in the HPI. [facility] Past Medical History Medical History Atrial fibrillation with RVR COPD (chronic obstructive pulmonary disease) CVA (cerebral vascular accident) Dislodged gastrostomy tube Dysphagia Gastrointestinal tube present Hyperlipidemia Hypertension Uses wearable garment containing external defibrillator with attached monitor Surgical History Surgical History History of gastrostomy tube placement Family History Family History Mother Acute myocardial infarction Hypertension Sibling Acute myocardial infarction Congestive heart failure Father Cancer Social History Social History Years smoked: 50 Smoking status: Former smoker Tobacco type: cigarettes Second hand tobacco smoke exposure: Yes Alcohol intake: never Substance use: never Substance use type: does not use Do You Feel Safe in your Home?: Yes Lack of Transportation: No Lack of Food: Never True Current Housing: I Have Housing Concerned About Future Housing: No Difficulty Paying Gas/Electric Bills: No Difficulty Paying for Meds: No Currently Unemployed: No Education: High School Diploma/GED Difficulty w/ Childcare or Family Care: No Spiritual care concerns: No Exam Narrative: General: Alert, awake, febrile, in moderate respiratory distress, frail and cachectic. HEENT: PERRL, no rhinorrhea, no post nasal drip, oropharynx clear. Neck: Trachea midline, no JVD, no lymphadenopathy. Cardiovascular: Tachycardic with regular rhythm, no murmurs, rubs or gallops, no peripheral edema. Respiratory: Coarse breath sounds bilaterally, tachypnea, no wheezing, no rhonchi, no rubs, moderate respiratory distress. Abdomen: Soft, nontender, nondistended, no rebound, no guarding, no peritoneal signs, G-tube in place, area appears clean and dry. Musculoskeletal: No joint swelling or deformity, normal muscle tone. Skin: No rashes or petechia, no signs of infection. Psychiatric: Normal behavior and judgment for situation. Neurological: Alert and oriented to person, place, and time. Follows all commands. No focal deficits, speech is clear and fluent. Course Vital Signs Vital signs: Vital Signs Temperature 100.9 F H 12/28/23 23:41 Pulse Rate 150 H 12/28/23 23:41 Respiratory Rate 25 H 12/28/23 23:41 Blood Pressure 94/55 L 12/28/23 23:41 Pul
--- NOTE | 2023-12-29 01:07 | PC.NURSE ---
Per patient's spouse she had urine catheter placed yesterday. Per EDP Dr. Julian hold off on replacing urinary catheter.
--- NOTE | 2023-12-29 01:08 | PC.NURSE ---
Patient's pressures were dropping into 70s/40s. Notified EDP Dr. Allen who VRBO 1L NS bolus.
--- NOTE | 2023-12-29 01:24 | PC.NURSE ---
Consent obtained for central line placement. Consent understood by patient at patient request signed by son.
[2023-12-29] MEDS: NOREPINEPHRINE 8 MG/D5W 250 ML 8 MG/250 ML BAG 9.38 MG IV CONT (01:30)
[2023-12-29] MEDS: cefTRIAXone 2 GM/NS 100 ML 2 GM/100 ML BAG IVPB (01:34)
--- NOTE | 2023-12-29 02:27 | ECG_ITS ---
Measurements Intervals [place] Rate: 85 P: 80 DE: 146 QRS: 63 QRSD: 140 T: 91 QT: 431 QTc: 513 Interpretive Statements SINUS RHYTHM WITH OCCASIONAL SUPRAVENTRICULAR PREMATURE COMPLEXES LEFT BUNDLE BRANCH BLOCK [120+ ms QRS DURATION, 80+ ms Q/S IN V1/V2, 85+ ms R IN I/aVL/V5/V6] ABNORMAL ECG COMPARED TO ECG 12/29/2023 00:58:34 NO SIGNIFICANT CHANGES Electronically Signed On 12-29-2023 7:47:46 CDT by Jose Thurman M.D.
[2023-12-29 03:05] LABS: Troponin I 0.035 ng/mL (0.000-0.034)
[2023-12-29 03:11] LABS: Reflex Lactic Acid Yes or No Add Lactic
[2023-12-29] MEDS: levoFLOXacin 750 MG/D5W 150 ML 750 MG/150 ML BAG 100 MG IVPB (04:20)
--- NOTE | 2023-12-29 04:43 | PC.NURSE ---
Per EDP Dr. Allen central line is good to use. Levophed switched over to central line
[2023-12-29 04:46] LABS: Lactic Acid 0.9 mmol/L (0.7-2.0)
--- NOTE | 2023-12-29 05:19 | PM.IMHP ---
H&P: HPI History of Present Illness Date/Time: 12/29/23 05:19 Chief Complaint: Shortness of breath hypoxemia Narrative: Patient is a 78-year-old female who was admitted to the hospital with shortness of breath cough productive patient was recently diagnosed with acute CVA started on physical therapy endurance and safety as, patient was also diagnosed with pneumonia started on IV antibiotics. Patient lactic acid levels were high patient ended up getting a CT of the abdomen pelvis shows bilateral lower lobe infiltrate consistent with pneumonia. Patient also history of urinary retention cyst in the past and has used fully. Patient's past medical history consistent with atrial fibrillation, hypertension, gait instability, cardiomyopathy, currently on LifeVest. Review of Systems Review of Systems: fevers chills . No double vision no blurry vision. No difficulty hearing or sinus complaints. shortness of breath no fever palpitation dizziness ankle swelling. No coughing wheezing chills. No nausea constipation diarrhea abdominal pain reflux. No urgency frequency of urination. No hematuria. No skin rash eczema. No anxiety depression difficulty sleeping. No bleeding gums enlarged glands. No muscle ache back pain joint stiffness. No loss of strength numbness headache tremor or loss of memory. ON LICENSE OF [facility] Past Medical History Medical History Atrial fibrillation with RVR COPD (chronic obstructive pulmonary disease) CVA (cerebral vascular accident) Dislodged gastrostomy tube Dysphagia Gastrointestinal tube present Hyperlipidemia Hypertension Uses wearable garment containing external defibrillator with attached monitor Surgical History Surgical History History of gastrostomy tube placement Social History Social History Smoking status: Former smoker Tobacco type: cigarettes Second hand tobacco smoke exposure: Yes Alcohol intake: unknown Substance use: unknown Substance use type: does not use Spiritual care concerns: No Meds Home Medications and Allergies Home Medications Medication Instructions Recorded Confirmed Type L.acidophilus-L.bulgar-B.bifid-S.thermoph 1 tablet PO DAILY #30 tabs 11/30/23 Rx 1 billion cell-250 mg tablet (Mady-Bid) apixaban 5 mg tablet (Eliquis) 5 mg feeding tube Q12HR #60 tabs 11/30/23 Rx atorvastatin 80 mg tablet 80 mg feeding tube DAILY #30 tabs 11/30/23 11/17/23 Rx bethanechol chloride 10 mg tablet 10 mg PO ACHS #120 tabs 11/30/23 Rx calcium carbonate 200 mg calcium 200 mg PO Q6H PRN Indigestion #60 11/30/23 11/17/23 Rx (500 mg) chewable tablet tabs ciprofloxacin HCl 500 mg tablet 500 mg PO Q12HR #10 tabs 11/30/23 Rx furosemide 40 mg tablet 40 mg feeding tube DAILY #30 tabs 11/30/23 Rx ipratropium 0.5 mg-albuterol 3 mg 3 ml inhalation Q4H PRN Shortness 11/30/23 Rx (2.5 mg base)/3 mL nebulization Of Breath #100 mL soln lisinopril 5 mg tablet 5 mg feeding tube DAILY #30 tabs 11/30/23 Rx meclizine 12.5 mg tablet 25 mg PO TID PRN Vertigo #90 tabs 11/30/23 Rx metoclopramide HCl 10 mg tablet 10 mg feeding tube 11/30/23 Rx (Reglan) TID@0500,1100,1700 #90 tabs metoprolol tartrate 25 mg tablet 12.5 mg feeding tube BID #60 tabs 11/30/23 Rx miconazole nitrate 2 % topical 1 applic topical Q12H #30 grams 11/30/23 Rx cream (Antifungal (miconazole)) tamsulosin 0.4 mg capsule 0.4 mg PO DAILY #30 caps 11/30/23 Rx Allergies Allergy/AdvReac Type Severity Reaction Status Date / Time No Known Allergies Allergy Verified 11/10/23 07:51 Vital Signs Vital Signs - 24 hr 12/28/23 23:41 12/29/23 00:25 12/29/23 00:27 Temperature 38.3 C H Pulse Rate 150 H 150 H Respiratory Rate 25 H Blood Pressure 94/55 L Pulse Oximetry 96 97 Oxygen Delivery Room Air Room
--- NOTE | 2023-12-29 05:23 | ECG_ITS ---
Measurements Intervals [place] Rate: 116 P: 84 [place]: 180 QRS: 45 QRSD: 144 T: 89 QT: 366 QTc: 509 Interpretive Statements ATRIAL TACHYCARDIA SUSPECT ATRIAL FLUTTER LEFT BUNDLE BRANCH BLOCK [120+ ms QRS DURATION, 80+ ms Q/S IN V1/V2, 85+ ms R IN I/aVL/V5/V6] ABNORMAL ECG COMPARED TO ECG 12/29/2023 02:35:28 SINUS RHYTHM IS REPLACED BY WHAT APPEARS TO BE ATYPICAL ATRIAL FLUTTER Electronically Signed On 12-29-2023 7:50:36 CDT by Jose Thurman M.D.
--- NOTE | 2023-12-29 05:23 | PC.NURSE ---
Per Pharmacist D5/0.45%NS can run with Levophed
[2023-12-29] MEDS: DEXTROSE 5%/0.45% SOD CHL 1,000 ML 100 ML IV CONT (05:27)
[2023-12-29 06:31] LABS: Troponin I 0.073 ng/mL (0.000-0.034)
--- NOTE | 2023-12-29 06:43 | ADMGEN ---
This patient, Taylor Alcaraz, was admitted to Intensive Care Unit-2. Patient/family oriented to hospital policies and general routines including ID bracelet, bed and alarms, visiting hours, pain management, procedures, bathroom and other care routines, personal items, smoking policy, room service/diet, and visiting hours. Information on how to activate the Rapid Response Team has been discussed. Patient/Family are encouraged to report perceived risks to care and to ask questions if they do not understand what they are told or what they should do.
--- NOTE | 2023-12-29 07:27 | ECG_ITS ---
Measurements Intervals [place] Rate: 92 P: 82 ME: 149 QRS: 76 QRSD: 146 T: 93 QT: 425 QTc: 528 Interpretive Statements SINUS RHYTHM LEFT BUNDLE BRANCH BLOCK [120+ ms QRS DURATION, 80+ ms Q/S IN V1/V2, 85+ ms R IN I/aVL/V5/V6] COMPARED TO ECG 12/29/2023 02:35:28 NO SIGNIFICANT CHANGES Electronically Signed On 12-29-2023 12:29:24 CDT by Jose Thurman M.D.
[2023-12-29 07:44] LABS: Basophils Percent Auto 0.2 % (0.2-1.2); Eosinophils Percent Auto 0.1 % (0-4.4); Hematocrit 26.8 % (37.0-47.0); Hemoglobin 8.5 g/dL (12.0-15.0); Immature Granulocyte Absolute 0.07 K/mm3 (0.00-0.031); Immature Granulocyte Percent A 0.5 % (0-0.5); Lymphocytes Absolute Auto 0.63 K/mm3 (0.9-3.2); Lymphocytes Percent Auto 4.7 % (18.3-44.2); Mean Corpuscular HGB Conc 31.7 g/dl (32-36); Mean Corpuscular Hemoglobin 32.3 pg (26-34); Mean Corpuscular Volume 101.9 fl (80-100); Mean Platelet Volume 11.6 fl (7.4-10.4); Monocytes Absolute Auto 0.9 K/mm3 (0.1-0.6); Monocytes Percent Auto 6.8 % (2.6-8.5); Neutrophils Absolute Auto 11.7 K/mm3 (1.3-6.7); Neutrophils Percent Auto 87.7 % (45.5-73.1); Platelet Count Result 192 k/mm3 (150-375); Red Blood Count 2.63 M/mm3 (4.2-5.4); White Blood Count 13.3 K/mm3 (4.5-10.0)
[2023-12-29 07:49] LABS: Magnesium 1.8 mg/dL (1.6-2.3); Phosphorus 2.8 mg/dL (2.5-4.5)
[2023-12-29 07:53] LABS: Lactic Acid Reflex 1.2 mmol/L (0.7-2.0)
[2023-12-29] MEDS: APIXABAN 5 MG TABLET FEED TUBE ×2 (08:59→20:49)
[2023-12-29] MEDS: PANTOPRAZOLE SODIUM IV 40 MG VIAL IV PUSH ×2 (08:59→20:49)
[2023-12-29] MEDS: ATORVASTATIN 40 MG TABLET 80 MG FEED TUBE (08:59)
[2023-12-29] MEDS: LACTATED RINGERS 1,000 ML 100 ML IV CONT ×2 (08:59→20:50)
[2023-12-29 09:04] LABS: MRSA (PCR) NOT DETECTED (NOT DETECTE)
--- NOTE | 2023-12-29 09:08 | WPDCNINT ---
Assessment and Plan Assessment and plan (1) Septic shock: Code(s): A41.9 - Sepsis, unspecified organism; R65.21 - Severe sepsis with septic shock Status: Acute Assessment and Plan: Patient presented with sepsis and shock likely secondary to UTI from indwelling catheter and CT also shows pneumonia. Patient has dysphagia and has PEG tube with tube feeding and recently started eating pudding. She admitted that she was having few episodes of coughing after eating. Past urine cultures were positive for VRE Klebsiella and Pseudomonas Samson catheter was changed recently by home health nurse Blood and urine cultures have been sent and are pending Patient received 2 L fluid bolus in the ER and is on maintenance IV fluids. Conservative IV fluids due to history of congestive heart failure but patient does appear dry exam hence will continue IV fluids at this time. Will give additional IV albumin bolus Continue Levophed. Add vasopressin Change antibiotics to Zosyn to cover aspiration pneumonia. Will discuss with Infectious Disease pharmacist regarding antibiotics for VRE coverage in urine (2) H/O: CVA (cerebrovascular accident): Code(s): Z86.73 - Personal history of transient ischemic attack (TIA), and cerebral infarction without residual deficits Status: Acute Assessment and Plan: Resume Eliquis and statin PT OT when hemodynamically stable (3) HFrEF (heart failure with reduced ejection fraction): Code(s): I50.20 - Unspecified systolic (congestive) heart failure Status: Acute Assessment and Plan: Patient has history of cardiomyopathy with EF 20% she was discharged with LifeVest and sees a Cardiology at [facility] Currently she appears to dry and in septic shock and scanning IV fluids Heart failure medications are currently off Will repeat echocardiogram Continue Eliquis statin (4) Gastrostomy status: Code(s): Z93.1 - Gastrostomy status Status: Acute Assessment and Plan: See above (5) UTI (urinary tract infection): Code(s): N39.0 - Urinary tract infection, site not specified Status: Acute Assessment and Plan: See above (6) Dysphagia: Code(s): R13.10 - Dysphagia, unspecified Status: Acute Assessment and Plan: Patient has dysphagia since of CVA and has a PEG tube with tube feeding at home Recently started eating pudding appears to have aspiration pneumonia Consult dietitian for tube feeding recommendations Consult speech for swallow evaluation (7) Pneumonia: Qualifiers: Laterality: right Lung location: lower lobe of lung Pneumonia type: due to unspecified organism Qualified Code(s): J18.9 - Pneumonia, unspecified organism Code(s): J18.9 - Pneumonia, unspecified organism Status: Acute Assessment and Plan: See above (8) Urinary retention: Code(s): R33.9 - Retention of urine, unspecified Status: Acute Assessment and Plan: Patient developed urinary retention for her CVA and a Samson catheter was placed. Patient was evaluated by Urology at that time and plan was to do a voiding trial at rehab facility. He was supposed to follow-up with urology as an outpatient but appears that she has not had that done till now. (9) Atrial fibrillation: Code(s): I48.91 - Unspecified atrial fibrillation Status: Acute Assessment and Plan: History of AFib but currently in sinus tachycardia Beta-lucia on hold due to shock Weaning down Levophed. Will add vasopressin if Levophed dose is high Continue Eliquis Plan DVT prophylaxis -Eliquis Nutrition -start tube feeding Code Status -patient wishes to be Full Code Total Critical Care Time -35 minutes Due to a high probability of clinically significant, life threatening deterioration, the patient required my highest level of preparedness to intervene emergently and I personally spent this critical care
[2023-12-29] MEDS: ALBUMIN HUMAN 5% 250 ML IV CONT ×2 (09:23→13:01)
[2023-12-29] MEDS: PIPERACILLIN/TAZ 4.5G/NS 100ML 4.5 GM/100 ML BAG IVPB ×3 (09:23→20:50)
[2023-12-29] MEDS: LINEZOLID 600 MG TABLET FEED TUBE ×2 (11:13→20:49)
[2023-12-29 11:22] LABS: Alanine Aminotransferase 31 U/L (6-35); Albumin Level 2.5 g/dL (3.5-5.1); Alkaline Phosphatase 92 U/L (38-126); Anion Gap 3 mmol/L (4-12); Aspartate Amino Transferase 34 U/L (14-36); Bilirubin,Total 0.3 mg/dL (0.2-1.3); Blood Urea Nitrogen 14 mg/dL (7-17); Calcium 7.9 mg/dL (8.4-10.2); Carbon Dioxide 27 mmol/L (22-30); Chloride 101 mmol/L (98-107); Estimated CRCL calculation 87 ml/min; Estimated Glomerular Filt Rate > 60; Glucose 125 mg/dL (65-110); Potassium 3.7 mmol/L (3.4-5.0); Sodium 131 mmol/L (137-145)
--- NOTE | 2023-12-29 14:31 | PCPTNOTE ---
Attempted PT evaluation. Per RN, pt not able to safely participate in skilled therapy at this time. Will follow.
--- NOTE | 2023-12-29 15:59 | PCSTNOTE ---
Since patient may be a silent aspirator, Bedside Swallow Evaluation was cancelled for today and a Modified Barium Swallow (MBS) study was ordered for tomorrow. Patient has been seen by this speech pathologist per [facility] and is considered a non-oral feeder on g-tube feedings. She began giving herself 1/2 cup of snack pack pudding on , according to patient admission during a HH visit, doing this perhaps once a day. Had been on a free-water protocol per [facility] prior to discharging home. At last HH visit on Monday, 12/26, she admitted she began feeding herself Ritz crackers. In addition, nursing and family had been increasing her tube feeding rate from 40 ml per hour higher in order to increase her caloric intake/weight and it is possible that she aspirated on the tube feedings. Therapist reminded patient and family each visit that this speech pathologist cannot recommend any oral feedings until the MBS can be completed but I cannot tell them what to do/not do when I am not present. They voiced understanding each time that was mentioned while in the home.
[2023-12-29] MEDS: IPRATROPIUM 0.5 MG/ALBUTEROL SULFATE 2.5 MG AMPUL.NEB 3 ML INHALATION (20:06)
[2023-12-29] MEDS: ALTEPLASE 2 MG VIAL (CATHFLO) IV PUSH (20:50)
[2023-12-29] MEDS: CENTRAL LINE FLUSH 10 ML IV PUSH (21:21)
[2023-12-30] VITALS (22 sets, daily range): BP systolic 118–141; BP diastolic 46–57; PULSE 64–93; RESP 14–28; TEMP 36.7–37.4; O2SAT 93–100
[2023-12-30] MEDS: PIPERACILLIN/TAZ 4.5G/NS 100ML 4.5 GM/100 ML BAG IVPB ×4 (02:28→21:40)
[2023-12-30 04:48] LABS: Basophils Percent Auto 0.3 % (0.2-1.2); Eosinophils Absolute Auto 0.3 K/mm3 (0-0.3); Eosinophils Percent Auto 2.6 % (0-4.4); Hematocrit 26.6 % (37.0-47.0); Hemoglobin 8.3 g/dL (12.0-15.0); Immature Granulocyte Absolute 0.04 K/mm3 (0.00-0.031); Immature Granulocyte Percent A 0.4 % (0-0.5); Lymphocytes Absolute Auto 0.78 K/mm3 (0.9-3.2); Lymphocytes Percent Auto 8.2 % (18.3-44.2); Mean Corpuscular HGB Conc 31.2 g/dl (32-36); Mean Corpuscular Hemoglobin 32.3 pg (26-34); Mean Corpuscular Volume 103.5 fl (80-100); Mean Platelet Volume 10.9 fl (7.4-10.4); Monocytes Absolute Auto 0.7 K/mm3 (0.1-0.6); Monocytes Percent Auto 7.8 % (2.6-8.5); Neutrophils Absolute Auto 7.7 K/mm3 (1.3-6.7); Neutrophils Percent Auto 80.7 % (45.5-73.1); Platelet Count Result 184 k/mm3 (150-375); Red Blood Count 2.57 M/mm3 (4.2-5.4); White Blood Count 9.5 K/mm3 (4.5-10.0)
[2023-12-30 05:06] LABS: Alanine Aminotransferase 22 U/L (6-35); Albumin Level 2.6 g/dL (3.5-5.1); Alkaline Phosphatase 81 U/L (38-126); Anion Gap 1 mmol/L (4-12); Aspartate Amino Transferase 30 U/L (14-36); Bilirubin,Total 0.4 mg/dL (0.2-1.3); Blood Urea Nitrogen 8 mg/dL (7-17); Calcium 8.2 mg/dL (8.4-10.2); Carbon Dioxide 27 mmol/L (22-30); Chloride 105 mmol/L (98-107); Estimated CRCL calculation 87 ml/min; Estimated Glomerular Filt Rate > 60; Glucose 126 mg/dL (65-110); Magnesium 1.8 mg/dL (1.6-2.3); Phosphorus 2.1 mg/dL (2.5-4.5); Potassium 3.6 mmol/L (3.4-5.0); Sodium 133 mmol/L (137-145)
[2023-12-30] MEDS: CENTRAL LINE FLUSH 10 ML IV PUSH ×3 (06:06→21:40)
[2023-12-30] MEDS: PANTOPRAZOLE SODIUM IV 40 MG VIAL IV PUSH ×2 (08:26→21:40)
[2023-12-30] MEDS: LINEZOLID 600 MG TABLET FEED TUBE ×2 (08:26→21:39)
[2023-12-30] MEDS: ATORVASTATIN 40 MG TABLET 80 MG FEED TUBE (08:26)
[2023-12-30] MEDS: APIXABAN 5 MG TABLET FEED TUBE ×2 (08:26→21:39)
--- NOTE | 2023-12-30 08:29 | WPDINTPN ---
Progress Note: A&P Assessment and Plan (1) Septic shock: Code(s): A41.9 - Sepsis, unspecified organism; R65.21 - Severe sepsis with septic shock Status: Acute Assessment and Plan: Patient presented with sepsis and shock likely secondary to UTI from indwelling catheter and CT also shows pneumonia. Patient has dysphagia and has PEG tube with tube feeding and recently started eating pudding. She admitted that she was having few episodes of coughing after eating. Past urine cultures were positive for VRE Klebsiella and Pseudomonas. Urine cultures growing coag-negative staph Samson catheter was changed recently by home health nurse and was changed again in the ICU Blood cultures have been sent and are pending Shock has resolved and patient is now off of vasopressors. IV fluids have been discontinued Continue Zosyn and linezolid (2) H/O: CVA (cerebrovascular accident): Code(s): Z86.73 - Personal history of transient ischemic attack (TIA), and cerebral infarction without residual deficits Status: Acute Assessment and Plan: Continue Eliquis and statin PT OT consult (3) HFrEF (heart failure with reduced ejection fraction): Code(s): I50.20 - Unspecified systolic (congestive) heart failure Status: Acute Assessment and Plan: Patient has history of cardiomyopathy with EF 20% she was discharged with LifeVest and sees a Cardiology at [place] On presentation she appeared to be dry and in septic shock and was given IV fluids Heart failure medications are currently off Continue Eliquis statin Repeat echocardiogram as below Summary ? 1. Complete two-dimensional, color flow and Doppler transthoracic echocardiogram is performed. ? 2. Mild LV enlargement with mild global systolic dysfunction and septal contraction consistent with bundle branch block global ejection fraction visually estimated at 45%. ? 3. Grade 1 diastolic noncompliance. ? 4. Small amount of mitral regurgitation. ? 5. Mildly enlarged left atrium. (4) Gastrostomy status: Code(s): Z93.1 - Gastrostomy status Status: Acute Assessment and Plan: See above (5) UTI (urinary tract infection): Code(s): N39.0 - Urinary tract infection, site not specified Status: Acute Assessment and Plan: See above (6) Dysphagia: Code(s): R13.10 - Dysphagia, unspecified Status: Acute Assessment and Plan: Patient has dysphagia since of CVA and has a PEG tube with tube feeding at home Recently started eating pudding appears to have aspiration pneumonia Consulted dietitian for tube feeding recommendations Consulted speech for swallow evaluation and patient is scheduled for modified barium swallow today (7) Pneumonia: Qualifiers: Laterality: right Lung location: lower lobe of lung Pneumonia type: due to unspecified organism Qualified Code(s): J18.9 - Pneumonia, unspecified organism Code(s): J18.9 - Pneumonia, unspecified organism Status: Acute Assessment and Plan: See above (8) Urinary retention: Code(s): R33.9 - Retention of urine, unspecified Status: Acute Assessment and Plan: Patient developed urinary retention for her CVA and a Samson catheter was placed. Patient was evaluated by Urology at that time and plan was to do a voiding trial at rehab facility. He was supposed to follow-up with urology as an outpatient but appears that she has not had that done till now. (9) Atrial fibrillation: Code(s): I48.91 - Unspecified atrial fibrillation Status: Acute Assessment and Plan: History of AFib but currently in sinus tachycardia Beta-lucia on hold due to shock Levophed weaned off Continue Eliquis Plan DVT prophylaxis -Eliquis Nutrition -continue tube feeding Code Status -patient wishes to be Full Code Transfer out of ICU today Subjective Date/time seen: 12/30/23 Overnight events reviewed. A
[2023-12-30] MEDS: POTASSIUM PHOS,M-BASIC-D-BASIC 20 MMOL in SODIUM CHLORIDE 0.9% IV 250 ML 64.17 MMOL IVPB (08:32)
--- NOTE | 2023-12-30 11:41 | PCSTNOTE ---
Please refer to the Modified Barium Swallow Evaluation in the EMR.
--- NOTE | 2023-12-30 16:35 | PM.IMPN ---
Progress Note: A&P Assessment and Plan (1) Septic shock: Code(s): A41.9 - Sepsis, unspecified organism; R65.21 - Severe sepsis with septic shock Status: Acute (2) H/O: CVA (cerebrovascular accident): Code(s): Z86.73 - Personal history of transient ischemic attack (TIA), and cerebral infarction without residual deficits Status: Acute (3) HFrEF (heart failure with reduced ejection fraction): Code(s): I50.20 - Unspecified systolic (congestive) heart failure Status: Acute (4) Gastrostomy status: Code(s): Z93.1 - Gastrostomy status Status: Acute (5) UTI (urinary tract infection): Code(s): N39.0 - Urinary tract infection, site not specified Status: Acute (6) Dysphagia: Code(s): R13.10 - Dysphagia, unspecified Status: Acute (7) Pneumonia: Qualifiers: Laterality: right Lung location: lower lobe of lung Pneumonia type: due to unspecified organism Qualified Code(s): J18.9 - Pneumonia, unspecified organism Code(s): J18.9 - Pneumonia, unspecified organism Status: Acute (8) Urinary retention: Code(s): R33.9 - Retention of urine, unspecified Status: Acute (9) Atrial fibrillation: Code(s): I48.91 - Unspecified atrial fibrillation Status: Acute Plan This 78-year-old female who presented with shortness of breath cough productive. Recently diagnosed with acute CVA completed rehabilitation. She was diagnosed with pneumonia recently was discharged from [facility] few weeks ago. She was wearing a LifeVest due to cardiomyopathy and low ejection fraction of 20%. Upon ED evaluation she was tachycardic tachypneic febrile and hypotensive. She received IV fluid however due to low ejection fraction patient was started on Levophed. Admitted to the ICU WBC 10.4 hemoglobin of 10.7 platelet 237 sodium mildly low at 130 renal function is normal troponin was negative at 0.012 LFTs mildly elevated BNP of 1350. Urinalysis was positive for UTI SARs COVID influenza and lactic acid was elevated on admission resolved 0.9 mild up trend of troponin from 0.012-0.035-0.073. Likely due to underlying septic shock. CT chest abdomen pelvis was done which showed bilateral lower lobe infiltrate consistent with pneumonia. She also has urinary retention in the past and has been on Samson catheter. Been started on IV antibiotics. Consideration of aspiration pneumonia with antibiotics was Zosyn urine culture grew VRE. History of CVA on Eliquis and statin. History of cardiomyopathy with ejection fraction 20% when discharged with LifeVest. Seen Cardiology at [facility]. Repeat echo with ejection fraction 40-45% Status post G-tube placement recently started eating oral diet continue tube feed Urinary retention Dysphagia speech to see MBS performed which showed silent aspiration and laryngeal penetration during the pharyngeal phase Urinary retention since CVA and on Samson catheter UTI urine culture growing coag-negative staph not Saprophyticus was empirically placed on linezolid due to history of VRE in urine. Past urine culture Klebsiella and Pseudomonas Mild chronic anemia stable counts with no signs of bleeding Elevated troponin slight up trend however likely related to underlying sepsis Atrial fibrillation history of currently sinus tachycardia beta-lucia on hold due to shock Eliquis Code status full code Subjective Date/time seen: 12/30/23 16:35 Interval history: Patient feeling better. Getting downgraded today from the ICU. She work with therapy. Discussed the nursing staff. Review of Systems Review of Systems: All systems reviewed & are unremarkable except as noted in HPI and below (HPI) Exam Narrative: General: Pt is frail old cachectic female who is alert awake and in NAD Lungs/Chest: Trachea central Clear BS B/L, No crackles or wheezing. Cardiac: RRR. Normal S1 S2. No murmurs tachycardia Circulation: Pedal pulses
[2023-12-31] VITALS (22 sets, daily range): BP systolic 121–137; BP diastolic 43–59; PULSE 69–101; RESP 18–24; TEMP 36.2–37; O2SAT 95–100
[2023-12-31] MEDS: PIPERACILLIN/TAZ 4.5G/NS 100ML 4.5 GM/100 ML BAG IVPB ×3 (03:09→21:49)
[2023-12-31] MEDS: CENTRAL LINE FLUSH 10 ML IV PUSH ×3 (04:00→21:49)
[2023-12-31 04:06] LABS: Hematocrit 25.6 % (37.0-47.0); Hemoglobin 7.8 g/dL (12.0-15.0); Mean Corpuscular HGB Conc 30.5 g/dl (32-36); Mean Corpuscular Hemoglobin 31.8 pg (26-34); Mean Corpuscular Volume 104.5 fl (80-100); Mean Platelet Volume 10.9 fl (7.4-10.4); Platelet Count Result 165 k/mm3 (150-375); Red Blood Count 2.45 M/mm3 (4.2-5.4); Red Cell Distribution Width 15.1 % (11.5-14.5); White Blood Count 5.9 K/mm3 (4.5-10.0)
[2023-12-31 04:17] LABS: Alanine Aminotransferase 19 U/L (6-35); Albumin Level 2.2 g/dL (3.5-5.1); Alkaline Phosphatase 70 U/L (38-126); Anion Gap 0 mmol/L (4-12); Aspartate Amino Transferase 22 U/L (14-36); Bilirubin,Total 0.3 mg/dL (0.2-1.3); Blood Urea Nitrogen 7 mg/dL (7-17); Calcium 7.4 mg/dL (8.4-10.2); Carbon Dioxide 25 mmol/L (22-30); Chloride 111 mmol/L (98-107); Estimated CRCL calculation 89 ml/min; Estimated Glomerular Filt Rate > 60; Glucose 128 mg/dL (65-110); Magnesium 1.7 mg/dL (1.6-2.3); Phosphorus 2.4 mg/dL (2.5-4.5); Potassium 2.9 mmol/L (3.4-5.0); Sodium 136 mmol/L (137-145)
--- NOTE | 2023-12-31 09:29 | PCOTNOTE ---
Attempted OT eval, pt reports she feels out of it and declines at the time. RN aware. Pt is getting moved to 213 to be able to get suctioned. Will follow.
[2023-12-31] MEDS: LINEZOLID 600 MG TABLET FEED TUBE ×2 (13:38→21:48)
[2023-12-31] MEDS: ATORVASTATIN 40 MG TABLET 80 MG FEED TUBE (13:38)
[2023-12-31] MEDS: PANTOPRAZOLE SODIUM IV 40 MG VIAL IV PUSH (13:39)
[2023-12-31] MEDS: APIXABAN 5 MG TABLET FEED TUBE ×2 (13:39→21:48)
--- NOTE | 2023-12-31 15:37 | PM.IMPN ---
Progress Note: A&P Assessment and Plan (1) Septic shock: Code(s): A41.9 - Sepsis, unspecified organism; R65.21 - Severe sepsis with septic shock Status: Acute (2) H/O: CVA (cerebrovascular accident): Code(s): Z86.73 - Personal history of transient ischemic attack (TIA), and cerebral infarction without residual deficits Status: Acute (3) HFrEF (heart failure with reduced ejection fraction): Code(s): I50.20 - Unspecified systolic (congestive) heart failure Status: Acute (4) Gastrostomy status: Code(s): Z93.1 - Gastrostomy status Status: Acute (5) UTI (urinary tract infection): Code(s): N39.0 - Urinary tract infection, site not specified Status: Acute (6) Dysphagia: Code(s): R13.10 - Dysphagia, unspecified Status: Acute (7) Pneumonia: Qualifiers: Laterality: right Lung location: lower lobe of lung Pneumonia type: due to unspecified organism Qualified Code(s): J18.9 - Pneumonia, unspecified organism Code(s): J18.9 - Pneumonia, unspecified organism Status: Acute (8) Urinary retention: Code(s): R33.9 - Retention of urine, unspecified Status: Acute (9) Atrial fibrillation: Code(s): I48.91 - Unspecified atrial fibrillation Status: Acute Plan This 78-year-old female who presented with shortness of breath cough productive. Recently diagnosed with acute CVA completed rehabilitation. She was diagnosed with pneumonia recently was discharged from [facility] few weeks ago. She was wearing a LifeVest due to cardiomyopathy and low ejection fraction of 20%. Upon ED evaluation she was tachycardic tachypneic febrile and hypotensive. She received IV fluid however due to low ejection fraction patient was started on Levophed. Admitted to the ICU WBC 10.4 hemoglobin of 10.7 platelet 237 sodium mildly low at 130 renal function is normal troponin was negative at 0.012 LFTs mildly elevated BNP of 1350. Urinalysis was positive for UTI SARs COVID influenza and lactic acid was elevated on admission resolved 0.9 mild up trend of troponin from 0.012-0.035-0.073. Likely due to underlying septic shock. CT chest abdomen pelvis was done which showed bilateral lower lobe infiltrate consistent with pneumonia. She also has urinary retention in the past and has been on Samson catheter. Been started on IV antibiotics. Consideration of aspiration pneumonia with antibiotics was Zosyn urine culture grew VRE. History of CVA on Eliquis and statin. History of cardiomyopathy with ejection fraction 20% when discharged with LifeVest. Seen Cardiology at [facility]. Repeat echo with ejection fraction 40-45% Status post G-tube placement recently started eating oral diet continue tube feed Dysphagia speech to see MBS performed which showed silent aspiration and laryngeal penetration during the pharyngeal phase. Will continue NPO. Urinary retention since CVA and on Samson catheter on Flomax which will be resumed UTI urine culture growing coag-negative staph not Saprophyticus was empirically placed on linezolid due to history of VRE in urine. Past urine culture Klebsiella and Pseudomonas Mild chronic anemia stable counts with no signs of bleeding Elevated troponin slight up trend however likely related to underlying sepsis Atrial fibrillation history of currently sinus tachycardia beta-lucia on hold due to shock Eliquis will resume metoprolol Code status full code Subjective Date/time seen: 12/31/23 15:37 Interval history: Patient continues to have some cough needing suction. Son at bedside and discussed with him. Denies any new complaints. Review of Systems Review of Systems: All systems reviewed & are unremarkable except as noted in HPI and below (HPI) Exam Narrative: General: Pt is frail old cachectic female who is alert awake and in NAD Lungs/Chest: Trachea central. Coarse Breath sounds, No crackles or wheezing. Cardia
[2023-12-31] MEDS: BETHANECHOL CHLORIDE 10 MG TABLET PO ×2 (17:47→21:48)
[2023-12-31] MEDS: POTASSIUM PHOS/SODIUM PHOS 250 MG TABLET FEED TUBE (17:47)
[2023-12-31] MEDS: IPRATROPIUM 0.5 MG/ALBUTEROL SULFATE 2.5 MG AMPUL.NEB 3 ML INHALATION ×2 (20:22→23:37)
[2023-12-31] MEDS: METOPROLOL TARTRATE 12.5 MG TABLET FEED TUBE (21:48)
[2024-01-01] VITALS (22 sets, daily range): BP systolic 120–137; BP diastolic 49–64; PULSE 74–110; RESP 18–24; TEMP 36.1–37.3; O2SAT 94–99
[2024-01-01] MEDS: PIPERACILLIN/TAZ 4.5G/NS 100ML 4.5 GM/100 ML BAG IVPB ×2 (02:33→09:49)
[2024-01-01] MEDS: IPRATROPIUM 0.5 MG/ALBUTEROL SULFATE 2.5 MG AMPUL.NEB 3 ML INHALATION ×5 (03:06→20:30)
[2024-01-01] MEDS: BETHANECHOL CHLORIDE 10 MG TABLET PO ×4 (05:18→21:03)
[2024-01-01] MEDS: CENTRAL LINE FLUSH 10 ML IV PUSH ×3 (05:18→22:00)
[2024-01-01 05:32] LABS: Hematocrit 27.9 % (37.0-47.0); Hemoglobin 8.9 g/dL (12.0-15.0); Mean Corpuscular HGB Conc 31.9 g/dl (32-36); Mean Corpuscular Hemoglobin 31.8 pg (26-34); Mean Corpuscular Volume 99.6 fl (80-100); Mean Platelet Volume 10.4 fl (7.4-10.4); Platelet Count Result 183 k/mm3 (150-375); Red Cell Distribution Width 15.1 % (11.5-14.5); White Blood Count 7.1 K/mm3 (4.5-10.0)
[2024-01-01 05:55] LABS: Alanine Aminotransferase 28 U/L (6-35); Albumin Level 2.8 g/dL (3.5-5.1); Alkaline Phosphatase 87 U/L (38-126); Anion Gap 4 mmol/L (4-12); Aspartate Amino Transferase 50 U/L (14-36); Bilirubin,Total 0.3 mg/dL (0.2-1.3); Blood Urea Nitrogen 11 mg/dL (7-17); Calcium 8.4 mg/dL (8.4-10.2); Carbon Dioxide 26 mmol/L (22-30); Chloride 106 mmol/L (98-107); Estimated CRCL calculation 89 ml/min; Estimated Glomerular Filt Rate > 60; Glucose 131 mg/dL (65-110); Magnesium 1.8 mg/dL (1.6-2.3); Phosphorus 2.9 mg/dL (2.5-4.5); Potassium 3.4 mmol/L (3.4-5.0); Sodium 136 mmol/L (137-145)
[2024-01-01] MEDS: APIXABAN 5 MG TABLET FEED TUBE ×2 (09:49→21:03)
[2024-01-01] MEDS: ATORVASTATIN 40 MG TABLET 80 MG FEED TUBE (09:49)
[2024-01-01] MEDS: LINEZOLID 600 MG TABLET FEED TUBE ×2 (09:49→21:03)
[2024-01-01] MEDS: lisinopriL 5 MG TABLET FEED TUBE (09:50)
[2024-01-01] MEDS: METOPROLOL TARTRATE 12.5 MG TABLET FEED TUBE ×2 (09:50→21:03)
--- NOTE | 2024-01-01 14:25 | PM.IMPN ---
Progress Note: A&P Assessment and Plan (1) Septic shock: Code(s): A41.9 - Sepsis, unspecified organism; R65.21 - Severe sepsis with septic shock Status: Acute (2) H/O: CVA (cerebrovascular accident): Code(s): Z86.73 - Personal history of transient ischemic attack (TIA), and cerebral infarction without residual deficits Status: Acute (3) HFrEF (heart failure with reduced ejection fraction): Code(s): I50.20 - Unspecified systolic (congestive) heart failure Status: Acute (4) Gastrostomy status: Code(s): Z93.1 - Gastrostomy status Status: Acute (5) UTI (urinary tract infection): Code(s): N39.0 - Urinary tract infection, site not specified Status: Acute (6) Dysphagia: Code(s): R13.10 - Dysphagia, unspecified Status: Acute (7) Pneumonia: Qualifiers: Laterality: right Lung location: lower lobe of lung Pneumonia type: due to unspecified organism Qualified Code(s): J18.9 - Pneumonia, unspecified organism Code(s): J18.9 - Pneumonia, unspecified organism Status: Acute (8) Urinary retention: Code(s): R33.9 - Retention of urine, unspecified Status: Acute (9) Atrial fibrillation: Code(s): I48.91 - Unspecified atrial fibrillation Status: Acute Plan This 78-year-old female who presented with shortness of breath cough productive. Recently diagnosed with acute CVA completed rehabilitation. She was diagnosed with pneumonia recently was discharged from [facility] few weeks ago. She was wearing a LifeVest due to cardiomyopathy and low ejection fraction of 20%. Upon ED evaluation she was tachycardic tachypneic febrile and hypotensive. She received IV fluid however due to low ejection fraction patient was started on Levophed. Admitted to the ICU WBC 10.4 hemoglobin of 10.7 platelet 237 sodium mildly low at 130 renal function is normal troponin was negative at 0.012 LFTs mildly elevated BNP of 1350. Urinalysis was positive for UTI SARs COVID influenza and lactic acid was elevated on admission resolved 0.9 mild up trend of troponin from 0.012-0.035-0.073. Likely due to underlying septic shock. CT chest abdomen pelvis was done which showed bilateral lower lobe infiltrate consistent with pneumonia. She also has urinary retention in the past and has been on Samson catheter. Been started on IV antibiotics. Consideration of aspiration pneumonia with antibiotics was Zosyn urine culture grew VRE. History of CVA on Eliquis and statin. History of cardiomyopathy with ejection fraction 20% when discharged with LifeVest. Seen Cardiology at [facility]. Repeat echo with ejection fraction 40-45% not need LifeVest anymore Status post G-tube placement recently started eating oral diet continue tube feed. Needs continue. Modified barium swallow with silent aspiration Dysphagia speech to see MBS performed which showed silent aspiration and laryngeal penetration during the pharyngeal phase. Will continue NPO. Urinary retention since CVA and on Samson catheter on Flomax which will be resumed UTI urine culture growing coag-negative staph not Saprophyticus was empirically placed on linezolid due to history of VRE in urine. Past urine culture Klebsiella and Pseudomonas. Will stop linezolid today Mild chronic anemia stable counts with no signs of bleeding Elevated troponin slight up trend however likely related to underlying sepsis Atrial fibrillation history of currently sinus tachycardia beta-lucia on hold due to shock Eliquis will resume metoprolol Code status full code Subjective Date/time seen: 01/01/24 14:25 Interval history: No overnight events. Cough is improving. Still feels weak. Review of Systems Review of Systems: All systems reviewed & are unremarkable except as noted in HPI and below (HPI) Exam Narrative: General: Pt is frail old cachectic female who is alert awake and in NAD Lungs/Chest: Trachea centra
--- NOTE | 2024-01-01 18:44 | PC.NURSE ---
This patient, Taylor Alcaraz, was transferred to [facility] on 01/01/24 at 1844. Personal belongings sent with patient. Report given to Criss DAVIS. Appropriate documentation sent with patient.
--- NOTE | 2024-01-01 18:57 | PC.NURSE ---
This patient, Taylor Alcaraz, was received from [facility] on 01/01/24 at 1857. Patient/family oriented to unit policies and routines.
[2024-01-01] MEDS: AMOXICILLIN/CLAVULANATE K 875-125 MG TAB 1 TABLET FEED TUBE (21:03)
[2024-01-02] VITALS (11 sets, daily range): BP systolic 109–130; BP diastolic 51–54; PULSE 82–113; RESP 16–20; TEMP 36.4–36.9; O2SAT 94–98
[2024-01-02] MEDS: IPRATROPIUM 0.5 MG/ALBUTEROL SULFATE 2.5 MG AMPUL.NEB 3 ML INHALATION ×4 (00:29→13:45)
[2024-01-02] MEDS: CENTRAL LINE FLUSH 10 ML IV PUSH ×2 (05:42→14:07)
[2024-01-02] MEDS: BETHANECHOL CHLORIDE 10 MG TABLET PO (05:42)
[2024-01-02 06:02] LABS: Hematocrit 28.1 % (37.0-47.0); Hemoglobin 8.9 g/dL (12.0-15.0); Mean Corpuscular HGB Conc 31.7 g/dl (32-36); Mean Corpuscular Hemoglobin 31.9 pg (26-34); Mean Corpuscular Volume 100.7 fl (80-100); Mean Platelet Volume 10.1 fl (7.4-10.4); Platelet Count Result 194 k/mm3 (150-375); Red Blood Count 2.79 M/mm3 (4.2-5.4); Red Cell Distribution Width 15.2 % (11.5-14.5); White Blood Count 8.4 K/mm3 (4.5-10.0)
[2024-01-02 06:17] LABS: Alanine Aminotransferase 44 U/L (6-35); Alkaline Phosphatase 99 U/L (38-126); Anion Gap 1 mmol/L (4-12); Aspartate Amino Transferase 50 U/L (14-36); Bilirubin,Total 0.3 mg/dL (0.2-1.3); Blood Urea Nitrogen 10 mg/dL (7-17); Calcium 8.6 mg/dL (8.4-10.2); Carbon Dioxide 28 mmol/L (22-30); Chloride 104 mmol/L (98-107); Estimated CRCL calculation 93 ml/min; Estimated Glomerular Filt Rate > 60; Glucose 125 mg/dL (65-110); Magnesium 1.9 mg/dL (1.6-2.3); Phosphorus 3.1 mg/dL (2.5-4.5); Potassium 3.9 mmol/L (3.4-5.0); Sodium 133 mmol/L (137-145)
[2024-01-02] MEDS: METOPROLOL TARTRATE 12.5 MG TABLET FEED TUBE (10:07)
[2024-01-02] MEDS: APIXABAN 5 MG TABLET FEED TUBE (10:07)
[2024-01-02] MEDS: AMOXICILLIN/CLAVULANATE K 875-125 MG TAB 1 TABLET FEED TUBE (10:07)
[2024-01-02] MEDS: lisinopriL 5 MG TABLET FEED TUBE (10:07)
[2024-01-02] MEDS: ATORVASTATIN 40 MG TABLET 80 MG FEED TUBE (10:07)
[2024-01-02] MEDS: LINEZOLID 600 MG TABLET FEED TUBE (10:07)
--- NOTE | 2024-01-02 12:17 | PCNFU ---
Nutrition Follow-Up Complete: Inadequate oral intake related to NPO (presently) as evidenced by need for TF recs/initiation of TF to meet estimated nutrition needs. Goal:1. TF to be initiated and advanced to goal without problems by follow-up - meeting goal 2. Weight to remain at or above 45.2 kg through follow-up - meeting goal. New goal: continued tolerance of tube feedings, Weight to remain at or above 45.2kg. Pt current nutrition is Tube feeding: Jevity 1.5 @ 45ml/hr. Nutrition recommendation: continue with current plan of care Last recorded weight is 48.2 kg - up from 45.2kg. Bowel Motility: +BM 12/31 Labs Reviewed: Hgb:8.9, HCT:28.1, Alb:3.0, NA:133, Cr:0.3, Glu:125 Meds Noted: levophed, reglan, eliquis, protonix Skin: no skin issues noted. Additional Notes: Pt continues on tube feeding of Jevity 1.5 @45ml/hr which is providing 1485kcals, 63g protein - This is meeting 97% energy needs, 100% of protein needs. Pt is tolerating tube feeds well at this time. Wt is up some, recommend to continue with current plan of care. Monitor TF (rate/tolerance), labs, weight every Monday and Monday per protocol.
--- NOTE | 2024-01-02 13:18 | P.CDI_ITS ---
CDI Query Clarification Request Urine culture from 12/28/23 grew > 100,000 Coag Neg Staph. Chronic indwelling Stanley catheter documented. Pt started on: Zosyn 4.5 gm Q 6 hours Augmentin 1 tab Q 12 hours Linezolid 600 mg Q 12 hours Clarification request - UTI has been documented, chronic indwelling stanley catheter documented. Please clarify if UTI is: * due to/associated with chronic indwelling stanley catheter * not due to/associated with chronic indwelling stanley catheter * unable to determine <Judy Sam RN - Last Filed: 01/02/24 13:25> Provider Comments UTI: Unable to determine <Sherif Ceballos MD - Last Filed: 01/02/24 14:06>
--- NOTE | 2024-01-02 14:03 | PM.DS ---
DS: Admitting Diagnosis Discharge Date 01/02/2024 Admitting Diagnosis Shortness of breath DS: Discharge Diagnosis Discharge Diagnosis (1) Septic shock: Code(s): A41.9 - Sepsis, unspecified organism; R65.21 - Severe sepsis with septic shock Status: Acute (2) H/O: CVA (cerebrovascular accident): Code(s): Z86.73 - Personal history of transient ischemic attack (TIA), and cerebral infarction without residual deficits Status: Acute (3) HFrEF (heart failure with reduced ejection fraction): Code(s): I50.20 - Unspecified systolic (congestive) heart failure Status: Acute (4) Gastrostomy status: Code(s): Z93.1 - Gastrostomy status Status: Acute (5) UTI (urinary tract infection): Code(s): N39.0 - Urinary tract infection, site not specified Status: Acute (6) Dysphagia: Code(s): R13.10 - Dysphagia, unspecified Status: Acute (7) Pneumonia: Qualifiers: Laterality: right Lung location: lower lobe of lung Pneumonia type: due to unspecified organism Qualified Code(s): J18.9 - Pneumonia, unspecified organism Code(s): J18.9 - Pneumonia, unspecified organism Status: Acute (8) Urinary retention: Code(s): R33.9 - Retention of urine, unspecified Status: Acute (9) Atrial fibrillation: Code(s): I48.91 - Unspecified atrial fibrillation Status: Acute DS: Summary Hospital Course Hospital Course: This 78-year-old female who presented with shortness of breath cough productive.? Recently diagnosed with acute CVA completed rehabilitation.? She was diagnosed with pneumonia recently was discharged few weeks ago.? She was wearing a LifeVest due to cardiomyopathy and low ejection fraction of 20%.? Upon ED evaluation she was tachycardic tachypneic febrile and hypotensive.? She received IV fluid however due to low ejection fraction patient was started on Levophed.? Admitted to the ICU WBC 10.4 hemoglobin of 10.7 platelet 237 sodium mildly low at 130 renal function is normal troponin was negative at 0.012 LFTs mildly elevated BNP of 1350.? Urinalysis was positive for UTI SARs COVID influenza and lactic acid was elevated on admission resolved 0.9 mild up trend of troponin from 0.012-0.035-0.073.? Likely due to underlying septic shock.? CT chest abdomen pelvis was done which showed bilateral lower lobe infiltrate consistent with pneumonia.? She also has urinary retention in the past and has been on Samson catheter.? Been started on IV antibiotics.? Consideration of aspiration pneumonia with antibiotics was Zosyn urine culture grew VRE.? History of CVA on Eliquis and statin. History of cardiomyopathy with ejection fraction 20% when discharged with LifeVest.? Seen Cardiology at [facility].? Repeat echo with ejection fraction 40-45% not need LifeVest anymore Status post G-tube placement recently started eating oral diet continue tube feed.? Needs continue.? Modified barium swallow with silent aspiration Dysphagia speech to see MBS performed which showed silent aspiration and laryngeal penetration during the pharyngeal phase.? Will continue NPO. Urinary retention since CVA and on Samson catheter on Flomax which will be resumed UTI urine culture growing coag-negative staph not Saprophyticus was empirically placed on linezolid due to history of VRE in urine.? Past urine culture Klebsiella and Pseudomonas.? Completed linezolid during the hospital course Mild chronic anemia stable counts with no signs of bleeding Elevated troponin slight up trend however likely related to underlying sepsis Atrial fibrillation history of currently sinus tachycardia beta-lucia on hold due to shock Eliquis will resume metoprolol Code status full code Time Spent with Patient Time attestation: Total time spent providing and/or coordinating discharge services: 35 minutes Exam Narrative: General: Pt is frail old cachectic female who is alert awake and in NAD Lung
[2024-01-02] MEDS: NEOMYCIN/POLYMYXIN/BACITRACIN OINTMENT PACKET 1 PACKET (14:50)
--- NOTE | 2024-01-02 15:05 | PCPTNOTE ---
The patient treatment was not able to be completed due to RN removing central line for discharge and patient will be on bedrest for 30 min once line is removed. Will plan to continue treatment per plan of care.
== END 2024-01-02 17:15 | disposition home health service (06) | DRG 871 ==
LOC: ANHED 12-29 04:52 → ANHICU 12-29 06:21 → ANHIMU 12-30 19:07 → ANH3MEDSUR 01-01 18:39
PROVIDERS: Internal Medicine; Admitting Provider Internal Medicine; Emergency Provider Emergency Medicine; PCP Internal Medicine; Visit Provider Internal Medicine
DX: A41.9 Sepsis, unspecified organism (principal); R65.21 Severe sepsis with septic shock; J18.9 Pneumonia, unspecified organism; J69.0 Pneumonitis due to inhalation of food and vomit; N39.0 Urinary tract infection, site not specified; I50.20 Unspecified systolic (congestive) heart failure; I42.9 Cardiomyopathy, unspecified; R64 Cachexia; Z68.1 Body mass index [BMI] 19.9 or less, adult; J44.0 Chronic obstructive pulmonary disease with (acute) lower respiratory infection; I25.10 Atherosclerotic heart disease of native coronary artery without angina pectoris; I11.0 Hypertensive heart disease with heart failure; B95.7 Other staphylococcus as the cause of diseases classified elsewhere; E78.5 Hyperlipidemia, unspecified; R33.9 Retention of urine, unspecified; I48.91 Unspecified atrial fibrillation; R33.8 Other retention of urine; D64.9 Anemia, unspecified; R13.10 Dysphagia, unspecified; I69.391 Dysphagia following cerebral infarction; Z93.1 Gastrostomy status; Z79.01 Long term (current) use of anticoagulants; Z87.891 Personal history of nicotine dependence
CPT/HCPCS: 36415; 36556; 71045; 71275; 74177; 80053; 81001; 83605; 83735; 83880; 84100; 84484; 85025; 85027; 87040; 87086; 87181; 87637; 87641; 92526; 92611; 93005; 93306; 94640; 96361; 96365; 96366; 96367; 97110; 97161; 97165; 97530; 97535; 99285; A9270; C1751; C9113; J0696; J1956; J2543; J2997; J7030; J7050; J7120; P9041; Q9967

== ENCOUNTER 2024-01-04 03:33 | Emergency (ER) | payer MEDICARE, SELFPAY ==
[2024-01-04 03:34] VITALS: BP 141/68; PULSE 88; RESP 20; TEMP 37; O2SAT 100
[2024-01-04 03:56] LABS: Basophils Percent Auto 0.7 % (0.2-1.2); Eosinophils Absolute Auto 0.2 K/mm3 (0-0.3); Eosinophils Percent Auto 4.1 % (0-4.4); Hematocrit 31.9 % (37.0-47.0); Hemoglobin 10.1 g/dL (12.0-15.0); Immature Granulocyte Absolute 0.01 K/mm3 (0.00-0.031); Immature Granulocyte Percent A 0.2 % (0-0.5); Lymphocytes Absolute Auto 1.28 K/mm3 (0.9-3.2); Lymphocytes Percent Auto 21.6 % (18.3-44.2); Mean Corpuscular HGB Conc 31.7 g/dl (32-36); Mean Corpuscular Hemoglobin 31.6 pg (26-34); Mean Corpuscular Volume 99.7 fl (80-100); Mean Platelet Volume 10.4 fl (7.4-10.4); Monocytes Absolute Auto 0.5 K/mm3 (0.1-0.6); Monocytes Percent Auto 8.8 % (2.6-8.5); Neutrophils Absolute Auto 3.8 K/mm3 (1.3-6.7); Neutrophils Percent Auto 64.6 % (45.5-73.1); Platelet Count Result 222 k/mm3 (150-375); Red Cell Distribution Width 15.2 % (11.5-14.5); White Blood Count 5.9 K/mm3 (4.5-10.0)
[2024-01-04 04:07] LABS: Appearance Urine Cloudy (Clear); Bacteria Urine None Seen /hpf; Bilirubin Urine Negative (Negative); Blood Urine 3+ (Negative); Glucose Urine UA Negative (Negative); Ketones Urine Negative (Negative); Leukocyte Esterase Ur 2+ LEU/UL (Negative); Need Manual Microscopic Reviewed; Nitrate Urine Negative (Negative); Protein Urine Trace mg/dL (Negative); RBC Urine >100 /hpf (0-2); Specific Grav Ur 1.009 (1.001-1.035); Squamous Epithelial Cell Urine None Seen /hpf (Few); Urobilinogen Urine 0.2 mg/dL (<2.0); WBC Urine 21-50 /hpf (0-3)
[2024-01-04 04:08] LABS: Add Urine Microscopic? YES; Color Urine Yellow (Yellow)
[2024-01-04 04:15] LABS: Alanine Aminotransferase 93 U/L (6-35); Alkaline Phosphatase 114 U/L (38-126); Anion Gap 5 mmol/L (4-12); Aspartate Amino Transferase 83 U/L (14-36); Bilirubin,Total 0.5 mg/dL (0.2-1.3); Blood Urea Nitrogen 15 mg/dL (7-17); Calcium 9.7 mg/dL (8.4-10.2); Carbon Dioxide 29 mmol/L (22-30); Chloride 104 mmol/L (98-107); Estimated CRCL calculation 59 ml/min; Estimated Glomerular Filt Rate > 60; Glucose 94 mg/dL (65-110); Potassium 4.1 mmol/L (3.4-5.0); Sodium 138 mmol/L (137-145)
--- NOTE | 2024-01-04 05:48 | ED.GENADULT ---
HPI - General Adult General Chief complaint: Urogenital-Female Stated complaint: blood in catheter Time Seen by Provider: 01/04/24 04:31 History of Present Illness HPI narrative: patient is a 78-year-old female presents emergency department chief complaint of blood in urinary catheter. Patient was recently discharged from hospital yesterday and then noticed there was a little bit of blood in the urine with being pain tends. No clots were noted. Patient denies fever reports she is currently being treated for urinary tract infection. Related Data Home Medications Medication Instructions Recorded Confirmed miconazole nitrate 2 % topical 1 applic topical Q12H PRN Rash 12/29/23 12/29/23 cream (Antifungal (miconazole)) Allergies Allergy/AdvReac Type Severity Reaction Status Date / Time No Known Allergies Allergy Verified 11/10/23 07:51 Review of Systems Review of Systems: A 10 system review of systems was completed on the patient and is negative except for what is stated in the HPI. Nursing and ancillary documentation was reviewed. [facility] Past Medical History Medical History Atrial fibrillation with RVR COPD (chronic obstructive pulmonary disease) CVA (cerebral vascular accident) Dislodged gastrostomy tube Dysphagia Gastrointestinal tube present Hyperlipidemia Hypertension Uses wearable garment containing external defibrillator with attached monitor Surgical History Surgical History History of gastrostomy tube placement Family History Family History Mother Acute myocardial infarction Hypertension Sibling Acute myocardial infarction Congestive heart failure Father Cancer Social History Social History Years smoked: 50 Smoking status: Former smoker Tobacco type: cigarettes Second hand tobacco smoke exposure: Yes Alcohol intake: never Substance use: never Substance use type: does not use Do You Feel Safe in your Home?: Yes Lack of Transportation: No Lack of Food: Never True Current Housing: I Have Housing Concerned About Future Housing: No Difficulty Paying Gas/Electric Bills: No Difficulty Paying for Meds: No Currently Unemployed: No Education: High School Diploma/GED Difficulty w/ Childcare or Family Care: No Spiritual care concerns: No Exam Narrative: GENERAL: Well-appearing, well-nourished, and in no acute distress. HEAD: Normocephalic, atraumatic. EYES: PERRLA and EOMI. ENT: Nares clear, no rhinorrhea or epistaxis. Mucous membranes moist. NECK: Supple. CHEST: Clear to auscultation. No respiratory distress. HEART: Regular rate and rhythm. No murmur heard. Normal peripheral pulses. ABDOMEN: Soft, nontender, nondistended, normal active bowel sounds. Peg tube in place Samson catheter in place draining darker colored urine but no clots and no bright red blood EXTREMITIES: Normal range of motion. No edema. SKIN: Warm, dry, no rash. NEURO: No focal deficits. Alert and oriented x3. PSYCH: Normal mood and affect. Course Vital Signs Vital signs: Vital Signs Temperature 37.0 C 01/04/24 03:34 Pulse Rate 88 01/04/24 03:34 Respiratory Rate 20 01/04/24 03:34 Blood Pressure 141/68 H 01/04/24 03:34 Pulse Oximetry 100 01/04/24 03:34 Oxygen Delivery Room Air 01/04/24 03:34 Temperature 37.0 C 01/04/24 03:34 Pulse Rate 88 01/04/24 03:34 Respiratory Rate 20 01/04/24 03:34 Blood Pressure 141/68 H 01/04/24 03:34 Pulse Oximetry 100 01/04/24 03:34 Oxygen Delivery Room Air 01/04/24 03:34 Medical Decision Making MDM Narrative Medical decision making narrative: differential diagnosis includes hematuria, trauma, urinary tract infection patient is currentl
[2024-01-04 06:11] VITALS: BP 138/66; PULSE 90; RESP 15; O2SAT 96
== END 2024-01-04 06:13 | disposition home or self-care (01) ==
PROVIDERS: Emergency Provider Emergency Medicine; PCP Internal Medicine
DX: R31.21 Asymptomatic microscopic hematuria (principal); I48.91 Unspecified atrial fibrillation; I10 Essential (primary) hypertension; J44.9 Chronic obstructive pulmonary disease, unspecified; E78.5 Hyperlipidemia, unspecified; Z86.73 Personal history of transient ischemic attack (TIA), and cerebral infarction without residual deficits; Z87.891 Personal history of nicotine dependence; Z79.01 Long term (current) use of anticoagulants
CPT/HCPCS: 36415; 80053; 81001; 85025; 87086; 99283

== ENCOUNTER 2024-01-12 11:11 | Outpatient (NON) | payer MEDICARE, SELFPAY ==
[2024-01-12 12:07] LABS: Bacteria Urine Rare /hpf; Budding Yeast Urine Present /hpf; Calcium Oxalate Crystals Urine Present /hpf; Granular Casts Urine Present /lpf; RBC Urine >100 /hpf (0-2); Squamous Epithelial Cell Urine None Seen /hpf (Few); WBC Urine 51-100 /hpf (0-3)
[2024-01-12 12:08] LABS: Appearance Urine Cloudy (Clear); Color Urine Red (Yellow)
[2024-01-12 12:09] LABS: Add Urine Microscopic? YES
== END 2024-01-12 11:12 | disposition home or self-care (01) ==
LOC: HOME HLTH 11:14
PROVIDERS: PCP Internal Medicine; Visit Provider Internal Medicine
DX: N39.0 Urinary tract infection, site not specified (principal); I69.354 Hemiplegia and hemiparesis following cerebral infarction affecting left non-dominant side; I69.391 Dysphagia following cerebral infarction; J18.9 Pneumonia, unspecified organism; J44.9 Chronic obstructive pulmonary disease, unspecified
CPT/HCPCS: 81001; 87086; 87088

== ENCOUNTER 2024-01-28 15:17 | Emergency (ER) | payer MEDICARE, SELFPAY ==
--- NOTE | ~2024-01-28 | XR_ITS ---
EXAMINATION: XR abdomen gastric tube insert DATE: 01/28/2024 15:51 INDICATION: G-tube replacement TECHNIQUE: A supine view of the abdomen abdomen was obtained. COMPARISON: None. FINDINGS: Percutaneous gastrostomy tube bulb projects over the left upper quadrant at the expected position of the proximal stomach. Residual oral contrast material seen scattered throughout the visualized colon. No dilated loops of gas-filled bowel to suggest obstruction. Lung bases are clear. Heart size is nor mal. L3-L5 posterior spinal fusion with bilateral vertical elysia and pedicle screw fixation. IMPRESSION: 1. Percutaneous gastrostomy tube projects over expected position of the proximal gastric body. Reviewed, dictated and finalized at location A. IMPRESSION: 1. Percutaneous gastrostomy tube projects over expected position of the proxima l gastric body.
--- NOTE | 2024-01-28 15:36 | ED.GENADULT ---
HPI - General Adult General Chief complaint: Unspecified Stated complaint: pulled out feeding tube Time Seen by Provider: 01/28/24 15:27 History of Present Illness HPI narrative: 78-year-old female presented to the emergency department for evaluation for a dislodged G-tube. Patient has a history of a CVA and had weight loss requiring her to have a G-tube inserted approximately 4 months ago. Patient states that she was at [facility] earlier today had the G-tube exchanged in after getting home the G-tube fell out again. Patient typically has an 18 Turkish G-tube but it was exchanged with a 16 Turkish tube. Related Data Home Medications Medication Instructions Recorded Confirmed miconazole nitrate 2 % topical 1 applic topical Q12H PRN Rash 12/29/23 12/29/23 cream (Antifungal (miconazole)) Allergies Allergy/AdvReac Type Severity Reaction Status Date / Time No Known Allergies Allergy Verified 11/10/23 07:51 Review of Systems Review of Systems: All systems reviewed & are unremarkable except as noted in HPI and below PMFSH Past Medical History Medical History Atrial fibrillation with RVR COPD (chronic obstructive pulmonary disease) CVA (cerebral vascular accident) Dislodged gastrostomy tube Dysphagia Gastrointestinal tube present Hyperlipidemia Hypertension Uses wearable garment containing external defibrillator with attached monitor Surgical History Surgical History History of gastrostomy tube placement Family History Family History Mother Acute myocardial infarction Hypertension Sibling Acute myocardial infarction Congestive heart failure Father Cancer Social History Social History Years smoked: 50 Smoking status: Former smoker Tobacco type: cigarettes Second hand tobacco smoke exposure: Yes Alcohol intake: never Substance use: never Substance use type: does not use Do You Feel Safe in your Home?: Yes Lack of Transportation: No Lack of Food: Never True Current Housing: I Have Housing Concerned About Future Housing: No Difficulty Paying Gas/Electric Bills: No Difficulty Paying for Meds: No Currently Unemployed: No Education: High School Diploma/GED Difficulty w/ Childcare or Family Care: No Spiritual care concerns: No Exam Narrative: APPEARANCE: Well appearing, no pain, no distress, well-nourished. HEAD: normocephalic, atraumatic. EYES: PERRLA/EOMI, conjunctivae clear. NOSE: Normal no drainage EARS:TMS clear with good light reflex. THROAT: Pharynx clear, no exudate. NECK: Supple. No adenopathy, no masses. RESPIRATORY: Airway patent, respirations nonlabored. Clear to auscultation bilaterally, no rales, rhonchi, wheezing. CARDIOVASCULAR: Regular rate and rhythm without murmurs rubs or gallops. ABDOMINAL: Soft, nontender, nondistended, normal bowel sounds. Well-appearing G-tube site MUSCULOSKELETAL: Moves all extremities. Strength/ROM intact, No edema, No calf tenderness. NEURO: Alert. Cranial nerves II through XII intact. Good gait. Good coordination SKIN: Warm, dry. Normal Color. Course Course Emergency Course: Patient is G2 was replaced Vital Signs Vital signs: Vital Signs Temperature 98.0 F 01/28/24 16:10 Pulse Rate 87 01/28/24 16:10 Respiratory Rate 18 01/28/24 16:10 Blood Pressure 120/55 L 01/28/24 16:10 Pulse Oximetry 99 01/28/24 16:10 Temperature 98.0 F 01/28/24 16:10 Pulse Rate 87 01/28/24 16:10 Respiratory Rate 18 01/28/24 16:10 Blood Pressure 120/55 L 01/28/24 16:10 Pulse Oximetry 99 01/28/24 16:10 Procedures Feeding Tube Replacement Feeding Tube #1: Type of Tube: gastrostomy Insertion Site Prior to Procedure: clean Tube Used for
--- NOTE | 2024-01-28 15:37 | PC.NURSE ---
pt came to ED today for G tube placement. pt states her G tube fell out at home. pt states its an 18F. No 18F g tube in department, 16F G tube placed by Dr. Orlando.
[2024-01-28 16:10] VITALS: BP 120/55; PULSE 87; RESP 18; TEMP 36.7; O2SAT 99
== END 2024-01-28 16:11 | disposition home or self-care (01) ==
PROVIDERS: Emergency Provider Emergency Medicine; PCP Internal Medicine
DX: Z43.1 Encounter for attention to gastrostomy (principal); I48.91 Unspecified atrial fibrillation; I10 Essential (primary) hypertension; J44.9 Chronic obstructive pulmonary disease, unspecified; E78.5 Hyperlipidemia, unspecified; Z86.73 Personal history of transient ischemic attack (TIA), and cerebral infarction without residual deficits; Z87.891 Personal history of nicotine dependence; Z79.01 Long term (current) use of anticoagulants
CPT/HCPCS: 43762; 99283

== ENCOUNTER 2024-01-29 09:38 | Emergency (ER) | payer MEDICARE, SELFPAY ==
--- NOTE | ~2024-01-29 | XR_ITS ---
EXAMINATION: XR abdomen gastric tube insert DATE: 01/29/2024 10:14 INDICATION: G-tube replacement. TECHNIQUE: A supine view of the abdomen was obtained for evaluation of feeding tube placement follow ing administration of 20 mL Omnipaque 350 water-soluble contrast into the percutaneous gastrostomy tu be. COMPARISON: 01/28/2024 FINDINGS: Percutaneous gastrostomy tube bulb which is outlined by the injected contrast within the body of the stomach. Persistent oral contrast material from a prior study in the more distal colon. No dilated lo ops of bowel to suggest obstruction. Lung bases are clear. Heart size is normal. Severe lumbar spondy losis with instrumented L3-L5 posterior spinal fusion. IMPRESSION: 1. Percutaneous gastrostomy tube bulb and injected contrast in the body of the stomach. Reviewed, dictated and finalized at location A.
--- NOTE | 2024-01-29 09:46 | ED.GENADULT ---
HPI - General Adult General Chief complaint: Unspecified <Dustin Guevara APRN - Last Filed: 01/29/24 10:59> Stated complaint: g tube came out <Dustin Guevara APRN - Last Filed: 01/29/24 10:59> Time Seen by Provider: 01/29/24 09:41 <Dustin Guevara APRN - Last Filed: 01/29/24 10:59> Source: patient and family <Dustin Guevara APRN - Last Filed: 01/29/24 10:59> Mode of arrival: ambulatory <Dustin Guevara APRN - Last Filed: 01/29/24 10:59> Limitations: no limitations <Dustin Guevara APRN - Last Filed: 01/29/24 10:59> History of Present Illness HPI narrative: Taylor is a 78-year-old female patient presenting to the ER today with complaints of her G-tube falling out this morning around 6:00 a.m.. She reports that when she woke up she noticed her G-tube was out. Has had to have her G-tube placed twice over the last 2 days. <Dustin Guevara APRN - Last Filed: 01/29/24 10:59> Related Data Home medications: Home Medications Medication Instructions Recorded Confirmed miconazole nitrate 2 % topical 1 applic topical Q12H PRN Rash 12/29/23 12/29/23 cream (Antifungal (miconazole)) <Dustin Guevara APRN - Last Filed: 01/29/24 10:59> Allergies/adverse reactions: Allergies Allergy/AdvReac Type Severity Reaction Status Date / Time No Known Allergies Allergy Verified 11/10/23 07:51 <Dustin Guevara APRN - Last Filed: 01/29/24 10:59> Review of Systems Review of Systems: Pertinent positives per HPI. Patient denies any fever, chills, rash, headache, visual changes, dizziness, cough, runny nose, sore throat, shortness of breath, chest pain, palpitations, nausea, vomiting, diarrhea, constipation, abdominal pain, or any urinary issues. <Dustin Guevara APRN - Last Filed: 01/29/24 10:59> [facility] Past Medical History Medical History: Medical History Atrial fibrillation with RVR COPD (chronic obstructive pulmonary disease) CVA (cerebral vascular accident) Dislodged gastrostomy tube Dysphagia Gastrointestinal tube present Hyperlipidemia Hypertension Uses wearable garment containing external defibrillator with attached monitor <Dustin Guevara APRN - Last Filed: 01/29/24 10:59> Surgical History Surgical History: Surgical History History of gastrostomy tube placement <Dustin Guevara APRN - Last Filed: 01/29/24 10:59> Family History Family History: Family History Mother Acute myocardial infarction Hypertension Sibling Acute myocardial infarction Congestive heart failure Father Cancer <Dustin Guevara APRN - Last Filed: 01/29/24 10:59> Social History Social History: Social History Years smoked: 50 Smoking status: Former smoker Tobacco type: cigarettes Second hand tobacco smoke exposure: Yes Alcohol intake: never Substance use: never Substance use type: does not use Do You Feel Safe in your Home?: Yes Lack of Transportation: No Lack of Food: Never True Current Housing: I Have Housing Concerned About Future Housing: No Difficulty Paying Gas/Electric Bills: No Difficulty Paying for Meds: No Currently Unemployed: No Education: High School Diploma/GED Difficulty w/ Childcare or Family Care: No Spiritual care concerns: No <Dustin Guevara APRN - Last Filed: 01/29/24 10:59> Comments At the time of my signature, I reviewed and agree with the nursing past medical, surgical, social, and family history. There is no relevant family history pertinent to the patient complaint. <Dustin Guevara APRN - Last Filed: 01/29/24 10:59> Exam Narrative: General: Well-developed, well nourished, in no apparent distr
[2024-01-29 09:50] VITALS: BP 124/59; PULSE 78; RESP 19; TEMP 36.6; O2SAT 100
[2024-01-29 10:01] VITALS: RESP 19; O2SAT 97
== END 2024-01-29 11:10 | disposition home or self-care (01) ==
PROVIDERS: Emergency Provider Nurse Practitioner Family; PCP Internal Medicine
DX: T85.528A Displacement of other gastrointestinal prosthetic devices, implants and grafts, initial encounter (principal); Y73.1 Therapeutic (nonsurgical) and rehabilitative gastroenterology and urology devices associated with adverse incidents; J44.9 Chronic obstructive pulmonary disease, unspecified; I48.91 Unspecified atrial fibrillation; I10 Essential (primary) hypertension; E78.5 Hyperlipidemia, unspecified; Z86.73 Personal history of transient ischemic attack (TIA), and cerebral infarction without residual deficits
CPT/HCPCS: 43762; 99283

== ENCOUNTER 2024-01-30 08:46 | Emergency (ER) | payer MEDICARE, SELFPAY ==
--- NOTE | ~2024-01-30 | XR_ITS ---
EXAMINATION: XR abdomen gastric tube insert DATE: 01/30/2024 10:00 INDICATION: G-tube replacement TECHNIQUE: A supine view of the abdomen centered at the left upper quadrant was obtained following i njection of 50 mL Omnipaque 350 water-soluble contrast into the patient's gastrostomy tube for evalua tion of tube positioning. COMPARISON: 01/29/2024 FINDINGS: Percutaneous gastrostomy tube bulb outlined by the injected contrast in the body the stomach. There i s been some passage of the contrast into the proximal duodenum. Less dense residual oral contrast fro m the day prior and remains scattered throughout the colon. No dilated gas-filled bowel to suggest ob struction. Lung bases are clear. Heart size is normal. L3-L5 posterior spinal fusion with vertical ro d and pedicle screw fixation. IMPRESSION: 1. Percutaneous gastrostomy tube tip and bulb along with injected contrast within the body of the sto mach. Reviewed, dictated and finalized at location A. IMPRESSION: 1. Percutaneous gastrostomy tube tip and bulb along with injected contrast with in the body of the stomach.
[2024-01-30 08:55] VITALS: BP 140/48; PULSE 76; RESP 14; TEMP 36.9; O2SAT 98
--- NOTE | 2024-01-30 09:07 | ED.GENADULT ---
[facility] - General Adult General Chief complaint: Unspecified Stated complaint: g-tube pulled out Time Seen by Provider: 01/30/24 08:56 Source: patient Mode of arrival: ambulatory Limitations: no limitations History of Present Illness HPI narrative: This is a who is 88-year-old female with PMH of CVA, s/p G-tube placement who presents to the ED for additional G-tube. This would be the 3rd time in 3 days that the G-tube has become dislodged. It was placed in October of 2019 for originally. Patient's son is here and is unsure of how the G-tube keeps becoming dislodged, however he does note that her original to was an 18 Macedonian size but she keeps getting 16 Macedonian replacements. Patient denies any pain, fevers or feeling unwell. She and family deny pulling on the G-tube. Son thinks that it may be becoming dislodged while she rolls in bed. Related Data Home Medications Medication Instructions Recorded Confirmed miconazole nitrate 2 % topical 1 applic topical Q12H PRN Rash 12/29/23 12/29/23 cream (Antifungal (miconazole)) Allergies Allergy/AdvReac Type Severity Reaction Status Date / Time No Known Allergies Allergy Verified 01/30/24 09:06 Review of Systems Review of Systems: All systems as dictated in [facility] Past Medical History Medical History Atrial fibrillation with RVR COPD (chronic obstructive pulmonary disease) CVA (cerebral vascular accident) Dislodged gastrostomy tube Dysphagia Gastrointestinal tube present Hyperlipidemia Hypertension Uses wearable garment containing external defibrillator with attached monitor Surgical History Surgical History History of gastrostomy tube placement Family History Family History Mother Acute myocardial infarction Hypertension Sibling Acute myocardial infarction Congestive heart failure Father Cancer Social History Social History Years smoked: 50 Smoking status: Former smoker Tobacco type: cigarettes Second hand tobacco smoke exposure: Yes Alcohol intake: never Substance use: never Substance use type: does not use Do You Feel Safe in your Home?: Yes Lack of Transportation: No Lack of Food: Never True Current Housing: I Have Housing Concerned About Future Housing: No Difficulty Paying Gas/Electric Bills: No Difficulty Paying for Meds: No Currently Unemployed: No Education: High School Diploma/GED Difficulty w/ Childcare or Family Care: No Spiritual care concerns: No Exam Narrative: GENERAL: Well-appearing, well-nourished, and in no acute distress. HEAD: Normocephalic, atraumatic. EYES: PERRLA and EOMI. ENT: Nares clear, no rhinorrhea or epistaxis. Mucous membranes moist. Oropharynx without tonsillar hypertrophy exudate or other lesions. NECK: Supple. No adenopathy or masses. CHEST: No respiratory distress. Clear to auscultation. No wheezes rales or rhonchi HEART: Regular rate and rhythm. No murmur heard. Normal peripheral pulses. ABDOMEN: G-tube displaced. Open tract in the epigastric region. No surrounding induration, erythema or tenderness. Soft, nontender, nondistended, normal active bowel sounds. MSK: Normal range of motion. No edema. SKIN: Warm, dry, no rash. NEURO: Alert and oriented x3. No focal deficits. PSYCH: Normal mood and affect. Course Vital Signs Vital signs: Vital Signs Temperature 98.5 F 01/30/24 08:55 Pulse Rate 76 01/30/24 08:55 Respiratory Rate 14 01/30/24 08:55 Blood Pressure 140/48 L 01/30/24 08:55 Pulse Oximetry 98 01/30/24 08:55 Oxygen Delivery Room Air 01/30/24 08:55 Temperature 98.3 F 01/30/24 10:42 Pulse Rate 83 01/30/24 10:42 Respiratory Rate 15 01/30/24 10:42 Blood Pressure 136/57 L 01/29
[2024-01-30 10:42] VITALS: BP 136/57; PULSE 83; RESP 15; TEMP 36.8; O2SAT 97
== END 2024-01-30 10:44 | disposition home or self-care (01) ==
PROVIDERS: Emergency Provider Physician Assistant; PCP Internal Medicine
DX: Z43.1 Encounter for attention to gastrostomy (principal); I48.91 Unspecified atrial fibrillation; J44.9 Chronic obstructive pulmonary disease, unspecified; E78.5 Hyperlipidemia, unspecified; I10 Essential (primary) hypertension; Z86.73 Personal history of transient ischemic attack (TIA), and cerebral infarction without residual deficits; Z87.891 Personal history of nicotine dependence
CPT/HCPCS: 43762; 99283

== ENCOUNTER 2024-04-10 16:24 | Inpatient (IN) | payer MEDICARE, SELFPAY ==
[2024-04-10] VITALS (8 sets, daily range): BP systolic 107–131; BP diastolic 48–69; PULSE 90–109; RESP 16–28; TEMP 36.7–36.9; O2SAT 89–95; BMI 17.6
--- NOTE | ~2024-04-10 | XR_ITS ---
XR chest 1V portable Ordering provider: Aditya Zuleta MD History: 79 years Female with . resp distress; increased oxygen needs HX cardiomyopathy . Comparison: April 10, 2024 FINDINGS: MEDIASTINUM: The cardiac silhouette is not enlarged. LUNGS: No effusions or pneumothorax. Opacification in the left lung base suggestive of atelectasis ve rsus pneumonia. Underlying fibrotic and emphysematous changes. OTHER: No free air under the diaphragm. Postoperative changes in the cervical spine. Degenerative breanne nges of the thoracic spine. IMPRESSION: Left basal atelectasis versus pneumonia. Reviewed, dictated and finalized at location A.
--- NOTE | ~2024-04-10 | XR_ITS ---
XR chest 1V portable 04/12/2024 11:44 Indication: Shortness of breath Procedure: 2 view chest Comparison: Comparison to multiple prior studies sequentially, with oldest reviewed study dated 01/2024. Findings: Left basilar airspace disease, compatible with pneumonia. Small left pleural effusion. No e jaquan or pneumothorax. No acute osseous abnormality. Impression: 1: Left basilar pneumonia with small left pleural effusion. Reviewed, dictated and finalized at location B. Impression: 1: Left basilar pneumonia with small left pleural effusion.
--- NOTE | ~2024-04-10 | XR_ITS ---
EXAMINATION: XR chest 1V portable DATE: 04/10/2024 17:16 INDICATION: Cough TECHNIQUE: frontal view of the chest was obtained. COMPARISON: Chest radiograph dated 01/01/2024 CT dated 12/29/2023 FINDINGS: Diffuse increased interstitial pattern in the bilateral lower lung zones with mild airspace opacities along the diaphragm on both the left and right. Likely small bilateral pleural effusions. Calcified nodule right lung along with calcified right hilar lymph nodes consistent with old granulomatous dise ase. No pneumothorax. The cardiomediastinal silhouette is normal. Postoperative changes with instrume nted anterior and posterior cervical spinal fusion. 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 IMPRESSION: 1. Interstitial and mild airspace opacities in bilateral lower lung zones most likely mild pulmonary edema and associated atelectasis although pneumonia not excludable. 2. Likely very small bilateral pleural effusions. Reviewed, dictated and finalized at location A. IMPRESSION: 1. Interstitial and mild airspace opacities in bilateral lower lung zones most likely mild pulmonary edema and associated atelectasis although pneumonia not e xcludable. 2. Likely very small bilateral pleural effusions.
[2024-04-10 17:05] LABS: Alanine Aminotransferase 47 U/L (6-35); Albumin Level 3.7 g/dL (3.5-5.1); Alkaline Phosphatase 131 U/L (38-126); Anion Gap 6 mmol/L (4-12); Aspartate Amino Transferase 49 U/L (14-36); Bilirubin,Total 0.6 mg/dL (0.2-1.3); Blood Urea Nitrogen 34 mg/dL (7-17); Carbon Dioxide 31 mmol/L (22-30); Chloride 99 mmol/L (98-107); Estimated CRCL calculation 61 ml/min; Estimated Glomerular Filt Rate > 60; Glucose 152 mg/dL (65-110); Lipase 52 U/L (23-300); Potassium 4.5 mmol/L (3.4-5.0); Sodium 136 mmol/L (137-145)
[2024-04-10 17:13] LABS: Hematocrit 33.2 % (37.0-47.0); Hemoglobin 10.4 g/dL (12.0-15.0); Mean Corpuscular HGB Conc 31.3 g/dl (32-36); Mean Corpuscular Hemoglobin 29.7 pg (26-34); Mean Corpuscular Volume 94.9 fl (80-100); Mean Platelet Volume 11.7 fl (7.4-10.4); Platelet Count Result 293 k/mm3 (150-375); Red Cell Distribution Width 15.4 % (11.5-14.5); White Blood Count 16.7 K/mm3 (4.5-10.0)
[2024-04-10 17:42] LABS: Band Neutrophils Percent 2 % (0-6); Basophils Absolute Manual 0.16 K/mm3 (0.0-0.1); Basophils Percent Manual 1 % (0-1); Lymphocytes Absolute Manual 0.16 K/mm3 (1.1-4.5); Monocytes Percent Manual 3 % (3-9); Neutrophils Absolute Manual 15.86 K/mm3 (1.7-7.2); Neutrophils Percent Manual 93 % (46-73); Total Cells Counted 100
[2024-04-10 17:43] LABS: Hypochromasia 1+; Platelet Estimate Adequate (Adequate); Schistocytes None Seen
[2024-04-10 17:44] LABS: Anisocytosis 2+
[2024-04-10 18:05] LABS: NT Pro B Type Natriuretic Pept 934 pg/mL (19.9-100)
--- NOTE | 2024-04-10 18:17 | ED.GENADULT ---
HPI - General Adult General Chief complaint: Nausea/Vomiting/Diarrhea Stated complaint: FEVER Time Seen by Provider: 04/10/24 16:47 History of Present Illness HPI narrative: Patient is a 79-year-old female with history of CVA resulting in left-sided weakness in need for feeding tube who presents ER with fever. Began today. Patient with cord chronic cough. Patient denies any chest pain or shortness of breath. No abdominal discomfort. Family accompanies patient says temps up to 100.3? F. In room patient is becoming hypoxic. Patient also recently had a indwelling for catheter removed and they are concerned she could have a urinary infection. Related Data Home Medications Medication Instructions Recorded Confirmed miconazole nitrate 2 % topical 1 applic topical Q12H PRN Rash 12/29/23 12/29/23 cream (Antifungal (miconazole)) Allergies Allergy/AdvReac Type Severity Reaction Status Date / Time No Known Allergies Allergy Verified 04/10/24 16:41 Review of Systems Review of Systems: All systems reviewed & are unremarkable except as noted in HPI and below Constitutional: Constitutional: Denies chills, Reports fatigue and Reports fever(s) ENT: Reports system reviewed and no additional complaints, except as documented Cardiovascular: Cardiovascular: Reports no additional cardiovascular complaints Respiratory: Respiratory: Reports chest congestion, Reports cough, Denies dyspnea and Denies wheezing Gastrointestinal: Gastrointestinal: Reports no additional gastrointestinal complaints [facility] Past Medical History Medical History Atrial fibrillation with RVR COPD (chronic obstructive pulmonary disease) CVA (cerebral vascular accident) Dislodged gastrostomy tube Dysphagia Gastrointestinal tube present Hyperlipidemia Hypertension Uses wearable garment containing external defibrillator with attached monitor Surgical History Surgical History History of gastrostomy tube placement Family History Family History Mother Acute myocardial infarction Hypertension Sibling Acute myocardial infarction Congestive heart failure Father Cancer Social History Social History Years smoked: 50 Smoking status: Former smoker Tobacco type: cigarettes Second hand tobacco smoke exposure: Yes Alcohol intake: never Substance use: never Substance use type: does not use Do You Feel Safe in your Home?: Yes Lack of Transportation: No Lack of Food: Never True Current Housing: I Have Housing Concerned About Future Housing: No Difficulty Paying Gas/Electric Bills: No Difficulty Paying for Meds: No Currently Unemployed: No Education: High School Diploma/GED Difficulty w/ Childcare or Family Care: No Spiritual care concerns: No Exam Narrative: GENERAL: Chronically ill-appearing, thin, and in no acute distress. HEAD: Normocephalic, atraumatic. ENT: Mucous membranes moist. NECK: Supple. CHEST: Coarse rales with increased respiratory rate and frequent coughing. HEART: Tachycardic and regular. Normal peripheral pulses. ABDOMEN: Soft, nontender, nondistended. Normal appearing feeding tube site. EXTREMITIES: Left-sided weakness. No edema. SKIN: Warm, dry, no rash. NEURO: Alert and oriented x3. Course Course Emergency Course: Patient family informed of diagnosis. Admit to hospitalist service. IV antibiotics started. This will cover both urine and lung infections. Vital Signs Vital signs: Vital Signs Temperature 98.1 F 04/10/24 16:26 Pulse Rate 109 H 04/10/24 16:26 Respiratory Rate 20 04/10/24 16:26 Blood Pressure 107/50 L 04/10/24 16:26 Pulse Oximetry 90 04/10/24 16:26 Oxygen Delivery Room Air 04/10/24 16:26 Temperature 98.
[2024-04-10 18:30] LABS: Influenza A QL RT-PCR Negative (Negative); Influenza B QL RT-PCR Negative (Negative); RSV RNA, RT-PCR Negative (Negative); SARS-CoV-2 RNA PCR Negative (Negative)
[2024-04-10 19:02] LABS: Appearance Urine Clear (Clear); Bacteria Urine 4+ /hpf; Bilirubin Urine Negative (Negative); Blood Urine 1+ (Negative); Color Urine Yellow (Yellow); Glucose Urine UA Negative (Negative); Ketones Urine Negative (Negative); Leukocyte Esterase Ur 1+ LEU/UL (Negative); Need Manual Microscopic Reviewed; Nitrate Urine Positive (Negative); Protein Urine Trace mg/dL (Negative); Specific Grav Ur 1.015 (1.001-1.035); Squamous Epithelial Cell Urine None Seen /hpf (Few); Urobilinogen Urine 0.2 mg/dL (<2.0); WBC Urine 21-50 /hpf (0-3)
[2024-04-10 19:04] LABS: Add Urine Microscopic? YES
[2024-04-10] MEDS: AZITHROMYCIN 500 MG/NS 250 ML 500 MG/250 ML BAG 250 MG IVPB (19:09)
--- NOTE | 2024-04-10 21:04 | ADMGEN ---
This patient, Taylor Alcaraz, was admitted to 3 Med Surg Room 316-02. Patient/family oriented to hospital policies and general routines including ID bracelet, bed and alarms, visiting hours, pain management, procedures, bathroom and other care routines, personal items, smoking policy, room service/diet, and visiting hours. Information on how to activate the Rapid Response Team has been discussed. Patient/Family are encouraged to report perceived risks to care and to ask questions if they do not understand what they are told or what they should do.
--- NOTE | 2024-04-10 22:31 | PM.IMHP ---
H&P: HPI History of Present Illness Date/Time: 04/10/24 20:15 Chief Complaint: Fever, cough, loose stools. Narrative: This is a pleasant 79-year-old female with stroke in September 2025 with residual left-sided deficits, expressive aphasia, and dysphagia status post PEG tube insertion, paroxysmal atrial fibrillation, hypertension, hyperlipidemia, and heart failure with reduced ejection fraction who presented to the emergency department for evaluation of fever, cough, and loose stools. The patient is able to provide some history however her son provides additional information with the patient's permission. She has had loose stools for the past 3 days and today she started to run a fever up to 100.3? F which prompted them to come in for evaluation. In triage she was hypoxic with a cough and rattling in her chest which son states is chronic. The patient herself does not have any significant complaints and she denies headache, neck ache, sinus congestion, choking episodes, aspiration, vomiting, abdominal pain, and dysuria. She has not noticed any blood or mucus in the stool and she has not had significant quantities of diarrhea. Preliminary workup was significant for a WBC count of 16.7, mild elevated LFTs, BUN 34, proBNP 937. Chest x-ray showed interstitial and mild airspace opacities in the bilateral lower lung zones and urine was nitrate and leukocyte esterase positive with 4+ bacteria. She was started on antibiotics and is being admitted in this setting. Review of Systems Review of Systems: 12 systems were reviewed and are negative except for as per HPI. [facility] Past Medical History Medical History (Updated 04/10/24 @ 22:41 by Gilma Ambrosio PA-C) Cerebrovascular accident With residual expressive aphasia, dysphagia, and left-sided weakness. Chronic anticoagulation Chronic obstructive pulmonary disease Heart failure with reduced ejection fraction Echocardiogram in December 2023 showed mild LV enlargement with mild global systolic dysfunction with an EF estimated 45% and grade 1 diastolic noncompliance. Hyperlipidemia Hypertension Paroxysmal atrial fibrillation Surgical History Surgical History (Updated 04/10/24 @ 22:38 by Gilma Ambrosio PA-C) History of gastrostomy tube placement History of spinal surgery Family History Family History Mother Acute myocardial infarction Hypertension Sibling Acute myocardial infarction Congestive heart failure Father Cancer Social History Social History (Updated 04/10/24 @ 22:44 by Gilma Ambrosio PA-C) Social History: Healthcare power of can intake worker: Zane Alcaraz, son. Code status: Do not resuscitate (son Hever was in the room as was the nurse as a witness). Smoking packs per day: 1 Smoking cigarettes per day: 20.0 Years smoked: 50 Smoking pack-years: 50.00 Smoking status: Former smoker Tobacco type: cigarettes Second hand tobacco smoke exposure: Yes Smoking end date: 09/25/23 Alcohol intake: never Substance use: never Substance use type: does not use Do You Feel Safe in your Home?: Yes Lack of Transportation: No Lack of Food: Never True Current Housing: I Have Housing Concerned About Future Housing: No Difficulty Paying Gas/Electric Bills: Decline to Answer Difficulty Paying for Meds: Decline to Answer Currently Unemployed: Decline to Answer Education: High School Diploma/GED Difficulty w/ Childcare or Family Care: Decline to Answer Spiritual care concerns: Yes (Heidy Faith) Meds Home Medications and Allergies Home Medications Medication Instructions Recorded Confirmed Type apixaban 5 mg tablet (Eliquis) 5 mg feeding tube Q12HR #60 tabs 11/30/23 04/10/24 Rx atorvastatin 80 mg tablet 80 mg feeding tube DAILY #30 tabs 11/30/23 04/10/24 Rx ipratropium 0.5 mg-albuterol 3 mg 3 ml inhalation Q4H PRN Shortness 11/30/23 04/10/24 Rx (2.5 mg base)/3 mL nebulizat
[2024-04-11] VITALS (20 sets, daily range): BP systolic 90–128; BP diastolic 40–85; PULSE 72–150; RESP 16–40; TEMP 36.4–36.5; O2SAT 86–100; BMI 17.6
[2024-04-11] MEDS: FUROSEMIDE INJ 40 MG/4 ML VIAL 20 MG IV PUSH (01:28)
[2024-04-11] MEDS: guaiFENesin 200 MG/10 ML UDC PO (01:28)
[2024-04-11] MEDS: METOPROLOL TARTRATE 12.5 MG TABLET FEED TUBE ×3 (01:28→18:55)
[2024-04-11] MEDS: APIXABAN 5 MG TABLET FEED TUBE ×3 (01:28→21:05)
[2024-04-11 08:41] LABS: Hematocrit 32.1 % (37.0-47.0); Hemoglobin 9.9 g/dL (12.0-15.0); Mean Corpuscular HGB Conc 30.8 g/dl (32-36); Mean Corpuscular Hemoglobin 29.6 pg (26-34); Mean Corpuscular Volume 95.8 fl (80-100); Platelet Count Result 238 k/mm3 (150-375); Red Blood Count 3.35 M/mm3 (4.2-5.4); Red Cell Distribution Width 15.4 % (11.5-14.5); White Blood Count 11.2 K/mm3 (4.5-10.0)
[2024-04-11] MEDS: ATORVASTATIN 40 MG TABLET 80 MG FEED TUBE (08:59)
[2024-04-11] MEDS: lisinopriL 5 MG TABLET FEED TUBE (08:59)
[2024-04-11] MEDS: PANTOPRAZOLE SODIUM IV 40 MG VIAL IV PUSH (08:59)
[2024-04-11] MEDS: FUROSEMIDE 20 MG TABLET FEED TUBE (08:59)
[2024-04-11 09:01] LABS: Alanine Aminotransferase 44 U/L (6-35); Albumin Level 3.4 g/dL (3.5-5.1); Alkaline Phosphatase 104 U/L (38-126); Anion Gap 4 mmol/L (4-12); Aspartate Amino Transferase 45 U/L (14-36); Bilirubin,Total 0.5 mg/dL (0.2-1.3); Blood Urea Nitrogen 30 mg/dL (7-17); Calcium 8.6 mg/dL (8.4-10.2); Carbon Dioxide 35 mmol/L (22-30); Chloride 97 mmol/L (98-107); Estimated CRCL calculation 65 ml/min; Estimated Glomerular Filt Rate > 60; Glucose 99 mg/dL (65-110); Magnesium 2.1 mg/dL (1.6-2.3); Potassium 4.1 mmol/L (3.4-5.0); Sodium 136 mmol/L (137-145)
--- NOTE | 2024-04-11 13:15 | PCDIET ---
TUBE FEEDING Initiate tube feedings, to mimic home regimen as best as possible Recommend: 250ml bolus feed of Jevity 1.5, QID (8am, 12pm, 4pm, 8pm) with 150ml water flush each feed. *This will use an entire bottle of RTH jevity 1.5 per day. Add ELÍAS BID for wound healing for an additional 180kcals, 5g protein per day
[2024-04-11] MEDS: METOCLOPRAMIDE HCL 10 MG TABLET FEED TUBE ×2 (13:46→16:30)
[2024-04-11] MEDS: BETHANECHOL CHLORIDE 10 MG TABLET FEED TUBE ×3 (13:46→21:04)
--- NOTE | 2024-04-11 13:49 | PM.IMPN ---
Progress Note: A&P Assessment and Plan (1) Acute hypoxic respiratory failure: Code(s): J96.01 - Acute respiratory failure with hypoxia Status: Acute (2) Urinary tract infection: Code(s): N39.0 - Urinary tract infection, site not specified Status: Acute (3) Pneumonia: Qualifiers: Laterality: right Lung location: lower lobe of lung Pneumonia type: due to unspecified organism Qualified Code(s): J18.9 - Pneumonia, unspecified organism Code(s): J18.9 - Pneumonia, unspecified organism Status: Acute (4) Heart failure with reduced ejection fraction: Code(s): I50.20 - Unspecified systolic (congestive) heart failure Status: Acute (5) Hypertension: Qualifiers: Hypertension type: unspecified Qualified Code(s): I10 - Essential (primary) hypertension Code(s): I10 - Essential (primary) hypertension Status: Acute (6) Paroxysmal atrial fibrillation: Code(s): I48.0 - Paroxysmal atrial fibrillation Status: Acute (7) Chronic obstructive pulmonary disease: Code(s): J44.9 - Chronic obstructive pulmonary disease, unspecified Status: Acute (8) Chronic anticoagulation: Code(s): Z79.01 - 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 Chest x-ray: Interstitial and mild airspace opacities in bilateral lower lung zones most likely mild pulmonary edema and associated atelectasis although pneumonia not excludable. incentive spirometry while awake. sputum culture ordered influenza/COVID/RSV negative Azithromycin and Rocephin supplemental oxygen therapy to maintain oxygen 92% monitor for signs of in sepsis UTI Urine cultures pending Continue IV hydration. Rocephin IV pending cultures HX CVA Residual left-sided deficits PEG tube Dietitian consulted Tube feedings resumed PT/OT resumed statin and eliquis HX AFIB: Resumed eliquis an metoprolol HX COPD: Duonebs, Stable, on O2 Code status: Full code per patient DVT prophylaxis: Lovenox Stress ulcer prophylaxis: Protonix 40 daily PT/OT notes: PT/OT pending Disposition: Patient continues admission on the medical unit for pneumonia PT OT pending recommendations patient may need long term facility at discharge. Time Spent With Patient Time with patient: 15 - 25 minutes Subjective Date/time seen: 04/11/24 13:49 Interval history: Admission: Medical Record Narrative: This is a pleasant 79-year-old female with stroke in September 2025 with residual left-sided deficits, expressive aphasia, and dysphagia status post PEG tube insertion, paroxysmal atrial fibrillation, hypertension, hyperlipidemia, and heart failure with reduced ejection fraction who presented to the emergency department for evaluation of fever, cough, and loose stools. The patient is able to provide some history however her son provides additional information with the patient's permission. She has had loose stools for the past 3 days and today she started to run a fever up to 100.3? F which prompted them to come in for evaluation. In triage she was hypoxic with a cough and rattling in her chest which son states is chronic. The patient herself does not have any significant complaints and she denies headache, neck ache, sinus congestion, choking episodes, aspiration, vomiting, abdominal pain, and dysuria. She has not noticed any blood or mucus in the stool and she has not had significant quantities of diarrhea. Preliminary workup was significant for a WBC count of 16.7, mild elevated LFTs, BUN 34, proBNP 937. Chest x-ray showed interstitial and mild airspace opacities in the bilateral lower lung zones and urine was nitrate and leukocyte esterase positive with 4+ bacteria. She was started on antibioti
--- NOTE | 2024-04-11 17:56 | ECG_ITS ---
Test Date: 2024-04-11 18:12:12 Measurements Intervals [place] Rate: 141 P: 0 WA: 0 QRS: -39 QRSD: 129 T: 93 QT: 290 QTc: 445 Interpretive Statements ATRIAL FIBRILLATION WITH RAPID VENTRICULAR RESPONSE WITH ABERRANT CONDUCTION OR VENTRICULAR PREMATURE COMPLEXES LEFT AXIS DEVIATION LEFT BUNDLE BRANCH BLOCK BASELINE ARTIFACT- I, II, III, AVR, AVL, AVF, V1-V6 ABNORMAL ECG No previous ECG available for comparison Electronically Signed On 04-11-2024 18:48:40 CDT by Demetrius Mcintyre D.O.
[2024-04-11] MEDS: ACETAMINOPHEN ELIXIR 325 MG/10.15 ML UDC 650 MG PO (18:41)
[2024-04-11 18:44] LABS: Troponin I < 0.012 ng/mL (0.000-0.034)
[2024-04-11] MEDS: IPRATROPIUM 0.5 MG/ALBUTEROL SULFATE 2.5 MG AMPUL.NEB 3 ML INHALATION (18:45)
--- NOTE | 2024-04-11 19:23 | WPDPN ---
Subjective Date/time seen: 04/11/24 19:23 Interval history: 79yo female with hx of CVA with expressive aphasia, dysphagia requiring GTube and left-sided weakness, COPD, CHF and pAFib here for fever and cough currently being treated for PNA. Called to the room for hypoxia and tachycardia. EKG showing AFib with RVR but overall quality is poor. WBC was 16K with left shift, BNP 934. Troponin collected this evening and was negative. CXR on admisison showing interstitial and mild airspace opacities in bilateral lower lung zones most likely mild pulmonary edema and associated atelectasis although pneumonia not excludable. [place] patient with PNA possibly from aspiration. No BCx collected. UA noted and UCx growing EColi. AF 128/51 -> 90/60 150 24 88% 13L Gen - thin frail female with tachypnea Chest - faint coarse BS. crackles in the bases. CV - tachy, irregular Abd - soft, GTube site with small amount of exudate at site. NT Ext - no pedal edema. Acute resp failure - Related to aspiration? CHF? Related to AFib/RVR? Sepsis? Check ABG. Check CXR. Start BiPAP. Check BCx. Change abx. Amiodarone to convert/control rhythm. HoTN - Hold Lasix, Lisinopril and metoprolol. Resume metoprolol when BP improved. Related to AFib but could be related to spesis. PNA - adjust abx to Vanco and Meropenem. De-escalate once she improves. UTI - change to meropenem to cover for ESBL. CHF - CXR on admission noted but not felt related to CHF given the elevated WBC and fever prior to admission. Check MRSA swab. Objective Data Vital Signs Vital Signs: Vital Signs - 24 hr 04/10/24 19:33 04/10/24 20:11 04/10/24 20:58 Temperature 98.5 F Pulse Rate 102 H 90 100 Respiratory Rate 24 H 22 H 16 Blood Pressure 114/69 126/54 L 111/49 L Pulse Oximetry 95 95 94 Oxygen Delivery Oxygen Flow Rate 04/11/24 01:28 04/11/24 02:04 04/11/24 06:00 Temperature 97.6 F Pulse Rate 98 72 Respiratory Rate 16 Blood Pressure 128/51 L Pulse Oximetry 94 99 Oxygen Delivery Nasal Cannula Oxygen Flow Rate 2 04/11/24 07:10 04/11/24 11:06 04/11/24 08:00 Temperature Pulse Rate 76 76 Respiratory Rate 18 18 Blood Pressure Pulse Oximetry 97 97 Oxygen Delivery Nasal Cannula Nasal Cannula Nasal Cannula Oxygen Flow Rate 2 2 2 04/11/24 18:55 04/11/24 18:45 04/11/24 19:17 Temperature Pulse Rate 140 H 130 H 150 H Respiratory Rate 24 H 24 H Blood Pressure Pulse Oximetry Oxygen Delivery Oxygen Flow Rate Intake/Output Intake/Output: Intake & Output 04/08/24 04/09/24 04/10/24 04/11/24 23:59 23:59 23:59 23:59 Intake Total 300 410 Output Total 300 Balance 0 410 Meds/Results Medications: Active Medications Generic Name Dose Route Start Last Admin Trade Name Freq PRN Reason Stop Dose Admin Acetaminophen 650 mg 04/10/24 22:44 04/11/24 18:41 Acetaminophen Elixir 325 Mg/10.15 Ml Udc PO 650 mg Q6H PRN Administration Mild Pain (1-3) or Fever Albuterol/Ipratropium 3 ml 04/10/24 22:47 04/11/24 18:45 Ipratropium 0.5 Mg/Albuterol Sulfate 2.5 Mg Ampul.Neb 3 Ml INHALATION 3 ml Q4H PRN Administration Shortness Of Breath Apixaban 5 mg 04/10/24 22:50 04/11/24 08:59 Apixaban 5 Mg Tablet FEED TUBE 5 mg Q12HR JOSE RAUL Administration Atorvastatin Calcium 80 mg 04/11/24 09:00 04/11/24 08:59 Atorvastatin 40 Mg Tablet FEED TUBE 80 mg DAILY JOSE RAUL Administration Azithromycin 500 mg 04/11/24 21:00 Azithromycin 250 Mg Tablet FEED TUBE 04/14/24 21:01 DAILY@2100 JOSE RAUL Bethanechol Chloride 10 mg 04/10/24 22:50 04/11/24 16:30 Bethanechol Chloride 10 Mg Tablet FEED TUBE 10 mg ACHS JOSE RAUL Administration Calcium Carbonate 200 mg 04/10/24 22:47 Calcium Carbonate (Tums) 500 Mg (200 Mg Elemental) FEED TUBE Q6H PRN Indigestion Furosemide 20 mg 04/11/24 09:00 04/11/24 08:59 Furosemide 20 Mg Tablet FEED TUBE 20 mg DAILY JOSE RAUL Administration Guaifenesin 2
[2024-04-11 19:31] LABS: Alveolar/Arterial O2 Gradient 322.9 mmHg; Base Excess ABG 5.3 mEq/l (+/-2.0); Fractional Inspired Oxygen 60 %; HCO3 ABG 29.6 mEq/l (22.0-26.0); Oxygen Content ABG 14.8 %vol (16.0-22.0); Oxygen Saturation ABG 91.6 % (95.0-100.0); PCO2 ABG 42.4 mmHg (35.0-45.0); PO2 ABG 58.3 mmHg (80.0-100.0); PO2 FiO2 Ratio Arterial Blood 0.97 %; Total Hemoglobin 11.8 g/dL (12.0-18.0); pH ABG 7.462 (7.350-7.450)
[2024-04-11 19:32] LABS: Device HIGH FLOW NASAL CANN; Modified Allen's Test Pass; Site Drawn RIGHT RADIAL
--- NOTE | 2024-04-11 19:51 | PC.NURSE ---
This patient, Taylor Alcaraz, was transferred to [ [id number]] on 04/11/24 at 1950. Personal belongings sent with patient. Report given to Qasim Appropriate documentation sent with patient. Son and sister at the bedside.
--- NOTE | 2024-04-11 19:57 | PC.NURSE ---
This patient, Taylor Alcaraz, was transferred to [[facility] ] on 04/11/24 at 1957. Personal belongings sent with patient. Report given to [Qasim]. Appropriate documentation sent with patient.
[2024-04-11] MEDS: SODIUM CHLORIDE 0.9% IV 1,000 ML 999 ML IV CONT (19:58)
[2024-04-11] MEDS: AMIODARONE 150 MG/D5W 100 ML 150 MG/100 ML BAG 600 MG IV CONT (20:25)
[2024-04-11] MEDS: AMIODARONE 360 MG/D5W 200 ML 360 MG/200 ML BAG 33.33 MG IV CONT (20:36)
[2024-04-11] MEDS: MEROPENEM 1 GM/NS 100 ML 1 GM/100 ML BAG IVPB (20:57)
[2024-04-11] MEDS: SODIUM CHLORIDE 0.9% IV 1,000 ML 100 ML IV CONT (20:58)
[2024-04-11] MEDS: AZITHROMYCIN 250 MG TABLET 500 MG FEED TUBE (21:05)
--- NOTE | 2024-04-11 22:56 | PC.NURSE ---
This patient, Taylor Alcaraz, was received from [ [id number]] on 04/11/24 at 1950. Patient/family oriented to unit policies and routines Pt in Afib RVR Dr Zuleta at bedside. Placed on Airvo for oxygenation. Received fluid bolus and started on amiodarone. See MAR for details. Patient awake and alert. Able to voice concerns and follow commands. Hr responsive to therapies mentioned above.
[2024-04-11 23:04] LABS: Troponin I 0.022 ng/mL (0.000-0.034)
[2024-04-11] MEDS: VANCOMYCIN 1,000 MG/NS 250 ML 1,000 MG/250 ML BAG 250 MG IVPB (23:50)
[2024-04-11 23:51] LABS: Thyroid Stimulating Hormone Reflex 0.878 uIU/mL (0.465-4.68)
[2024-04-12] VITALS (27 sets, daily range): BP systolic 112–150; BP diastolic 44–79; PULSE 57–122; RESP 20–28; TEMP 36.3–36.7; O2SAT 79–100
[2024-04-12 00:45] LABS: Troponin I 0.034 ng/mL (0.000-0.034)
[2024-04-12] MEDS: AMIODARONE 360 MG/D5W 200 ML 360 MG/200 ML BAG 16.67 MG IV CONT (02:45)
[2024-04-12 05:07] LABS: Hematocrit 33.4 % (37.0-47.0); Hemoglobin 10.3 g/dL (12.0-15.0); Mean Corpuscular HGB Conc 30.8 g/dl (32-36); Mean Corpuscular Hemoglobin 29.8 pg (26-34); Mean Corpuscular Volume 96.5 fl (80-100); Mean Platelet Volume 11.6 fl (7.4-10.4); Platelet Count Result 258 k/mm3 (150-375); Red Blood Count 3.46 M/mm3 (4.2-5.4); Red Cell Distribution Width 15.2 % (11.5-14.5); White Blood Count 15.9 K/mm3 (4.5-10.0)
[2024-04-12 05:19] LABS: Alanine Aminotransferase 35 U/L (6-35); Albumin Level 3.1 g/dL (3.5-5.1); Alkaline Phosphatase 95 U/L (38-126); Anion Gap 4 mmol/L (4-12); Aspartate Amino Transferase 33 U/L (14-36); Bilirubin,Total 0.3 mg/dL (0.2-1.3); Blood Urea Nitrogen 30 mg/dL (7-17); Calcium 8.4 mg/dL (8.4-10.2); Carbon Dioxide 33 mmol/L (22-30); Chloride 100 mmol/L (98-107); Estimated CRCL calculation 83 ml/min; Estimated Glomerular Filt Rate > 60; Glucose 97 mg/dL (65-110); Magnesium 1.9 mg/dL (1.6-2.3); Potassium 4.2 mmol/L (3.4-5.0); Sodium 137 mmol/L (137-145)
[2024-04-12] MEDS: SODIUM CHLORIDE 0.9% IV 1,000 ML 100 ML IV CONT (06:32)
[2024-04-12] MEDS: MEROPENEM 1 GM/NS 100 ML 1 GM/100 ML BAG IVPB (06:34)
[2024-04-12] MEDS: BETHANECHOL CHLORIDE 10 MG TABLET FEED TUBE ×2 (06:35→12:23)
[2024-04-12] MEDS: METOCLOPRAMIDE HCL 10 MG TABLET FEED TUBE ×2 (06:36→12:22)
[2024-04-12] MEDS: ACETAMINOPHEN ELIXIR 325 MG/10.15 ML UDC 650 MG PO (06:39)
[2024-04-12] MEDS: DORNASE ALFA INH SOLN 1 MG/ML 2.5 ML AMP 2.5 MG INHALATION (08:37)
[2024-04-12] MEDS: IPRATROPIUM 0.5 MG/ALBUTEROL SULFATE 2.5 MG AMPUL.NEB 3 ML INHALATION ×2 (08:37→14:50)
[2024-04-12] MEDS: APIXABAN 5 MG TABLET FEED TUBE (09:05)
[2024-04-12] MEDS: ATORVASTATIN 40 MG TABLET 80 MG FEED TUBE (09:05)
[2024-04-12] MEDS: PANTOPRAZOLE SODIUM IV 40 MG VIAL IV PUSH (09:05)
[2024-04-12] MEDS: VANCOMYCIN 750 MG/NS 250 ML 750 MG/250 ML BAG 250 MG IVPB (09:06)
--- NOTE | 2024-04-12 09:49 | PCNFU ---
Nutrition Follow-Up Complete: Severe protein calorie malnutrition related to increased energy needs as evidenced by a noted -10% wt loss x 3 months and NFPE findings for severe subcutaneous fat loss (cheeks) and severe muscle wasting (congregation, clavicle). Meet estimated needs - Progressing with tube feeding Goal: Pt current nutrition is Jevity 1.5 bolus 250 ml QID : 0800, 1200, 1600, 2000. Flush 150 ml QID (with each feeding). Flush Abdirizak BID mixed with flushes BID for additional 90 kcal and 2.5 g protein for wound healing support Nutrition recommendation: No new nutrition recommendations. Continue with current bolus feedings as ordered. Continue with Abdirizak flushes BID for wound support Last recorded weight is 46.1 kg. 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 Agree with current nutrition care plans. Agree with orders. Monitor tube feed, tolerance, wt, labs, skin, Follow every Monday and Monday
--- NOTE | 2024-04-12 10:25 | P.PNIM_ITS ---
Progress Note: A&P Assessment and Plan (1) Acute hypoxic respiratory failure: Code(s): J96.01 - Acute respiratory failure with hypoxia Status: Acute (2) Urinary tract infection: Code(s): N39.0 - Urinary tract infection, site not specified Status: Acute (3) Pneumonia: Qualifiers: Laterality: right Lung location: lower lobe of lung Pneumonia type: due to unspecified organism Qualified Code(s): J18.9 - Pneumonia, unspecified organism Code(s): J18.9 - Pneumonia, unspecified organism Status: Acute (4) Heart failure with reduced ejection fraction: Code(s): I50.20 - Unspecified systolic (congestive) heart failure Status: Acute (5) Hypertension: Qualifiers: Hypertension type: unspecified Qualified Code(s): I10 - Essential (primary) hypertension Code(s): I10 - Essential (primary) hypertension Status: Acute (6) Paroxysmal atrial fibrillation: Code(s): I48.0 - Paroxysmal atrial fibrillation Status: Acute (7) Chronic obstructive pulmonary disease: Code(s): J44.9 - Chronic obstructive pulmonary disease, unspecified Status: Acute (8) Chronic anticoagulation: Code(s): Z79.01 - 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 Patient is aware she could without more aggressive measures. Change to comfort care/hospice per patient request. Spoke with patient's family to notify that she has been worsening during the day from a respiratory standpoint. Prior orders below: Discontinued Acute respiratory failure with hypoxia secondary to pneumonia * Likely aspiration pneumonia patient has Peg tube from previous stroke. Vomited today. Suspect aspiration cause of respiratory failure * Still on optiflow, course and tachypneic sitting up in a chair. * Bronchodilators. * Chest x-ray: Interstitial and mild airspace opacities in bilateral lower lung zones most likely mild pulmonary edema and associated atelectasis although pneumonia not excludable. * incentive spirometry while awake. * sputum culture ordered, induce sputum * influenza/COVID/RSV negative * continue azithromycin per tube * Stop IV Meropenem * MRSA swab negative, DC'd Vanc * supplemental oxygen therapy to maintain oxygen 92%. On optiflow * Portable chest x-ray * Patient not agreeable to NT suctioning at this time * ABG will not price changer if worsening HX Heart failure Pulmonary edema * Home med: Lasix 20 daily * X-ray with possible mild pulmonary edema, has been getting IV lasix intermittently, additional dose IV 20mg today * Hold fluids * Continue 20mg lasix per tube * Treatment of infection as noted * Echo 12/29/23 mildly reduced LVEF, 40-45%, small mitral regurg Emesis * Vomited after tube feed this morning * Decrease bolus feeds from 250>150 q4, hold a feed if nauseated * Zofran prn UTI * Urine cultures pending * Continue IV hydration. * On Meropenem for Pneumonia, can wean IV pending cultures HX CVA * Residual left-sided deficits * PEG tube * Dietitian consulted * Tube feedings resumed * PT/OT * resumed statin and eliquis AFIB with RVR: Home meds:eliquis and metoprolol. * Afib with RVR yesterday, rate 140's on EKG * Changed amiodarone to PO per cardiology * stop eliquis, continue carvedilol for rate control/comfort, can dc if less responsive * Cardiology consulted, HX COPD: Duonebs, likely due to pneumonia
--- NOTE | 2024-04-12 10:25 | PM.IMPN ---
Progress Note: A&P Assessment and Plan (1) Acute hypoxic respiratory failure: Code(s): J96.01 - Acute respiratory failure with hypoxia Status: Acute (2) Urinary tract infection: Code(s): N39.0 - Urinary tract infection, site not specified Status: Acute (3) Pneumonia: Qualifiers: Laterality: right Lung location: lower lobe of lung Pneumonia type: due to unspecified organism Qualified Code(s): J18.9 - Pneumonia, unspecified organism Code(s): J18.9 - Pneumonia, unspecified organism Status: Acute (4) Heart failure with reduced ejection fraction: Code(s): I50.20 - Unspecified systolic (congestive) heart failure Status: Acute (5) Hypertension: Qualifiers: Hypertension type: unspecified Qualified Code(s): I10 - Essential (primary) hypertension Code(s): I10 - Essential (primary) hypertension Status: Acute (6) Paroxysmal atrial fibrillation: Code(s): I48.0 - Paroxysmal atrial fibrillation Status: Acute (7) Chronic obstructive pulmonary disease: Code(s): J44.9 - Chronic obstructive pulmonary disease, unspecified Status: Acute (8) Chronic anticoagulation: Code(s): Z79.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 Patient is aware she could without more aggressive measures. Change to comfort care/hospice per patient request. Spoke with patient's family to notify that she has been worsening during the day from a respiratory standpoint. Prior orders below: Discontinued Acute respiratory failure with hypoxia secondary to pneumonia Likely aspiration pneumonia patient has Peg tube from previous stroke. Vomited today. Suspect aspiration cause of respiratory failure Still on optiflow, course and tachypneic sitting up in a chair. Bronchodilators. Chest x-ray: Interstitial and mild airspace opacities in bilateral lower lung zones most likely mild pulmonary edema and associated atelectasis although pneumonia not excludable. incentive spirometry while awake. sputum culture ordered, induce sputum influenza/COVID/RSV negative continue azithromycin per tube Stop IV Meropenem MRSA swab negative, DC'd Vanc supplemental oxygen therapy to maintain oxygen 92%. On optiflow Portable chest x-ray Patient not agreeable to NT suctioning at this time ABG will not size changer if worsening HX Heart failure Pulmonary edema Home med: Lasix 20 daily X-ray with possible mild pulmonary edema, has been getting IV lasix intermittently, additional dose IV 20mg today Hold fluids Continue 20mg lasix per tube Treatment of infection as noted Echo 12/29/23 mildly reduced LVEF, 40-45%, small mitral regurg Emesis Vomited after tube feed this morning Decrease bolus feeds from 250>150 q4, hold a feed if nauseated Zofran prn UTI Urine cultures pending Continue IV hydration. On Meropenem for Pneumonia, can wean IV pending cultures HX CVA Residual left-sided deficits PEG tube Dietitian consulted Tube feedings resumed PT/OT resumed statin and eliquis AFIB with RVR: Home meds:eliquis and metoprolol. Afib with RVR yesterday, rate 140's on EKG Changed amiodarone to PO per cardiology stop eliquis, continue carvedilol for rate control/comfort, can dc if less responsive Cardiology consulted, HX COPD: Duonebs, likely due to pneumonia Goals of care: No CPR, intubation, noninvasive ventilation. Consider hospice if not improving. Patient is aware she could without more aggressive measures Code status: DNR/DNI. NO noninvasive ventilation or bipap. DVT prophylaxis: Eliquis Stress ulcer prophylaxis: Protonix 40 daily PT/OT notes: PT/OT pending Disposition: Patient continues admission on the medical unit for pneumonia PT OT pending recommendations patient may need skilled nurs
--- NOTE | 2024-04-12 11:36 | PM.CNCAR ---
Assessment and Plan Assessment and plan (1) Heart failure with reduced ejection fraction: Code(s): I50.20 - Unspecified systolic (congestive) heart failure Status: Acute Assessment and Plan: Previously severe, EF has recovered to 45% by echo in December 2023. Resume GDMT with coreg, lisinopril (had been on hold because of hypotension) (2) Paroxysmal atrial fibrillation: Code(s): I48.0 - Paroxysmal atrial fibrillation Status: Acute Assessment and Plan: Paroxysmal atrial fibrillation, atrial fibrillation with RVR in the setting of respiratory failure. Now in sinus rhythm on amiodarone drip. Will shift from IV to pill form of amiodarone to be given per tube Do not anticipate usp use of amiodarone Continue metoprolol Continue anticoagulation (3) Chronic anticoagulation: Code(s): Z79.01 - joint terminal attack controller (current) use of anticoagulants Status: Acute Assessment and Plan: For cardioembolic risk reduction. Continue apixaban. (4) Bilateral pneumonia: Code(s): J18.9 - Pneumonia, unspecified organism Status: Acute Assessment and Plan: Possibly secondary to aspiration. Abx per hospitalist. History of Present Illness History of Present Illness Consult date/time: 04/12/24 11:36 Requesting physician: Melanie Maxwell APRN Consult reason: atrial fibrillation Reason For Visit: Pneumonia Narrative: Taylor Alcaraz is a 78 year old female with paroxysmal atrial fibrillation and severe cardiomyopathy (EF now recovered to 45%). She was admitted to the hospital now with complaints of fever, cough, and diarrhea. She is being treated for pneumonia possibly secondary to aspiration. In this setting, she developed atrial fibrillation with rapid ventricular response. She was placed on amiodarone drip and has subsequently converted back to normal sinus rhythm. She denies any palpitations but she does endorse chest pain that has been ongoing for several days. Review of Systems Review of Systems: All systems reviewed & are unremarkable except as noted in HPI and below PMFSH Past Medical History Medical History Cerebrovascular accident With residual expressive aphasia, dysphagia, and left-sided weakness. Chronic anticoagulation Chronic obstructive pulmonary disease Heart failure with reduced ejection fraction Echocardiogram in December 2023 showed mild LV enlargement with mild global systolic dysfunction with an EF estimated 45% and grade 1 diastolic noncompliance. Hyperlipidemia Hypertension Paroxysmal atrial fibrillation Surgical History Surgical History History of gastrostomy tube placement History of spinal surgery Family History Family History Mother Acute myocardial infarction Hypertension Sibling Acute myocardial infarction Congestive heart failure Father Cancer Social History Social History Social History: Healthcare power of personal injury attorney: Zane Alcaraz, son. Code status: Do not resuscitate (son Hever was in the room as was the nurse as a witness). Smoking packs per day: 1 Smoking cigarettes per day: 20.0 Years smoked: 50 Smoking pack-years: 50.00 Smoking status: Former smoker Tobacco type: cigarettes Second hand tobacco smoke exposure: Yes Smoking end date: 09/25/23 Alcohol intake: never Substance use: never Substance use type: does not use Do You Feel Safe in your Home?: Yes Lack of Transportation: No Lack of Food: Never True Current Housing: I Have Housing Concerned About Future Housing: No Difficulty Paying Gas/Electric Bills: Decline to Answer Difficulty Paying for Meds: Decline to Answer Currently Unemployed: Decline to Answer Education: High School Diploma/GED Difficulty w/ Child
[2024-04-12] MEDS: FUROSEMIDE INJ 40 MG/4 ML VIAL 20 MG IV PUSH (12:22)
[2024-04-12 13:54] LABS: MRSA (PCR) NOT DETECTED (NOT DETECTE)
[2024-04-12] MEDS: MORPHINE SULFATE (*CRX) 2 MG/ML INJ IV PUSH ×2 (17:24→21:43)
[2024-04-13] VITALS: BP 137/81; PULSE 111; RESP 22; TEMP 36.3; O2SAT 90
[2024-04-13 08:00] VITALS: BP 181/109; PULSE 96; RESP 20; TEMP 37.1; O2SAT 91
--- NOTE | 2024-04-13 09:12 | PM.PNCARD ---
Progress Note: A&P Assessment and Plan (1) Heart failure with reduced ejection fraction: Code(s): I50.20 - Unspecified systolic (congestive) heart failure Status: Acute Assessment and Plan: Previously severe, EF has recovered to 45% by echo in December 2023. Resume GDMT with coreg, lisinopril (had been on hold because of hypotension) (2) Paroxysmal atrial fibrillation: Code(s): I48.0 - Paroxysmal atrial fibrillation Status: Acute Assessment and Plan: Paroxysmal atrial fibrillation, atrial fibrillation with RVR in the setting of respiratory failure. Now in sinus rhythm on amiodarone drip. 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 Continue apixaban. (4) Bilateral pneumonia: Code(s): J18.9 - Pneumonia, unspecified organism Status: Acute Assessment and Plan: Possibly secondary to aspiration. Abx per hospitalist. Time Spent With Patient Time: Patient looking to be discharged on comfort care. Cardiology to sign off Subjective Date/time seen: 04/13/24 09:12 Interval history: 79-year-old status post CVA, AFib Date of service 04/13/2024: Patient has decided to go on comfort care only. Arrangements to be made for transfer to home. No chest pain Review of Systems ENT: Reports Normal hearing present Cardiovascular: Cardiovascular: Denies chest pain Exam Const: General: comfortable, no acute distress, alert and awake Orientation/consciousness: patient oriented x3 HENMT: Head: normal to inspection Eyes: General: appearance normal, both eyes and all related structures Sclera: sclerae normal Neck: Neck: normal visual inspection, supple and no JVD Carotids: normal carotid upstroke Resp: Effort & Inspection: normal respiratory effort Auscultation: rhonchi Cardio: Rate: regular rate Rhythm: regular rhythm Heart sounds: S1 normal heart sound present, S2 normal heart sound present and no murmurs GI: Auscultation: normal bowel sounds Skin: General skin exam: normal color Neuro: General: patient oriented x3 Cranial nerves: Yes Equal, round and reactive pupils present Speech: No normal speech (slow speech) Extrem: General: normal to inspection Other: no edema Psych: Appearance: grossly normal Mental Status: mental status grossly normal Objective Data Vital Signs Vital Signs: Vital Signs - 24 hr 04/12/24 09:53 04/12/24 09:57 04/12/24 10:00 Temperature Pulse Rate 73 85 Respiratory Rate Blood Pressure 119/44 L Pulse Oximetry Oxygen Delivery High Flow Therapy with Na Oxygen Flow Rate 50 Fraction of Inspired Oxygen 04/12/24 10:00 04/12/24 12:00 04/12/24 14:10 Temperature 36.4 C L Pulse Rate 81 60 Respiratory Rate Blood Pressure 130/45 L Pulse Oximetry 96 94 Oxygen Delivery High Flow Therapy with Na Oxygen Flow Rate 55 Fraction of Inspired Oxygen 85 04/12/24 14:00 04/12/24 14:51 04/12/24 15:04 Temperature Pulse Rate 86 92 Respiratory Rate 28 H 28 H Blood Pressure 114/52 L Pulse Oximetry Oxygen Delivery Oxygen Flow Rate Fraction of Inspired Oxygen 04/12/24 15:05 04/12/24 15:45 04/12/24 18:00 Temperature 36.7 C Pulse Rate 96 108 H Respiratory Rate 22 H Blood Pressure 132/46 L 148/55 H Pulse Oximetry 85 L 98 Oxygen Delivery High Flow Therapy with Na Oxygen Flow Rate 60 Fraction of Inspired Oxygen 90 04/12/24 12:00 04/12/24 14:00 04/12/24 16:00 Temperature Pulse Rate 57 L 80 99 Respiratory Rate Blood Pressure Pulse Oximetry Oxygen Delivery Oxygen Flow Rate Fraction of Inspired Oxygen 04/12/24 12:00 04/12/24 16:00 04/12/24 19:59 Temperature 36.3 C L Pulse Rate 122 H Respiratory Rate 28 H Blood Pressure 150/
--- NOTE | 2024-04-13 12:19 | P.DS_ITS ---
DS: Admitting Diagnosis Discharge Date 04/13/2024 Admitting Diagnosis Acute respiratory hypoxia DS: Discharge Diagnosis Discharge Diagnosis (1) Acute hypoxic respiratory failure: Code(s): J96.01 - Acute respiratory failure with hypoxia Status: Acute (2) Urinary tract infection: Code(s): N39.0 - Urinary tract infection, site not specified Status: Acute (3) Pneumonia: Qualifiers: Laterality: right Lung location: lower lobe of lung Pneumonia type: due to unspecified organism Qualified Code(s): J18.9 - Pneumonia, unspecified organism Code(s): J18.9 - Pneumonia, unspecified organism Status: Acute (4) Heart failure with reduced ejection fraction: Code(s): I50.20 - Unspecified systolic (congestive) heart failure Status: Acute (5) Hypertension: Qualifiers: Hypertension type: unspecified Qualified Code(s): I10 - Essential (primary) hypertension Code(s): I10 - Essential (primary) hypertension Status: Acute (6) Paroxysmal atrial fibrillation: Code(s): I48.0 - Paroxysmal atrial fibrillation Status: Acute (7) Chronic obstructive pulmonary disease: Code(s): J44.9 - Chronic obstructive pulmonary disease, unspecified Status: Acute (8) Chronic anticoagulation: Code(s): Z79.01 - terminologist (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 Patient is aware she could without more aggressive measures. Change to comfort care/hospice per patient request. Spoke with patient's family to notify that she has been worsening during the day from a respiratory standpoint. Prior orders below: Discontinued Acute respiratory failure with hypoxia secondary to pneumonia * Likely aspiration pneumonia patient has Peg tube from previous stroke. Vomited today. Suspect aspiration cause of respiratory failure * Still on optiflow, course and tachypneic sitting up in a chair. * Bronchodilators. * Chest x-ray: Interstitial and mild airspace opacities in bilateral lower lung zones most likely mild pulmonary edema and associated atelectasis although pneumonia not excludable. * incentive spirometry while awake. * sputum culture ordered, induce sputum * influenza/COVID/RSV negative * continue azithromycin per tube * Stop IV Meropenem * MRSA swab negative, DC'd Vanc * supplemental oxygen therapy to maintain oxygen 92%. 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 * On Meropenem for Pneumonia, can wean IV pending cultures HX CVA * Residual left-sided deficits * PEG tube * Dietitian consulted * Tube feedings resumed * PT/OT * resumed statin and eliquis AFIB with RVR: Home meds:eliquis and metoprolol. * Afib with RVR yesterday, rate 140's on EKG * Changed amiodarone to PO per cardiology * stop eliquis, continue carvedilol
--- NOTE | 2024-04-13 12:19 | PM.DS ---
DS: Admitting Diagnosis Discharge Date 04/13/2024 Admitting Diagnosis Acute respiratory hypoxia DS: Discharge Diagnosis Discharge Diagnosis (1) Acute hypoxic respiratory failure: Code(s): J96.01 - Acute respiratory failure with hypoxia Status: Acute (2) Urinary tract infection: Code(s): N39.0 - Urinary tract infection, site not specified Status: Acute (3) Pneumonia: Qualifiers: Laterality: right Lung location: lower lobe of lung Pneumonia type: due to unspecified organism Qualified Code(s): J18.9 - Pneumonia, unspecified organism Code(s): J18.9 - Pneumonia, unspecified organism Status: Acute (4) Heart failure with reduced ejection fraction: Code(s): I50.20 - Unspecified systolic (congestive) heart failure Status: Acute (5) Hypertension: Qualifiers: Hypertension type: unspecified Qualified Code(s): I10 - Essential (primary) hypertension Code(s): I10 - Essential (primary) hypertension Status: Acute (6) Paroxysmal atrial fibrillation: Code(s): I48.0 - Paroxysmal atrial fibrillation Status: Acute (7) Chronic obstructive pulmonary disease: Code(s): J44.9 - Chronic obstructive pulmonary disease, unspecified Status: Acute (8) Chronic anticoagulation: Code(s): Z79.01 - terminal gauger (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 Patient is aware she could without more aggressive measures. Change to comfort care/hospice per patient request. Spoke with patient's family to notify that she has been worsening during the day from a respiratory standpoint. Prior orders below: Discontinued Acute respiratory failure with hypoxia secondary to pneumonia Likely aspiration pneumonia patient has Peg tube from previous stroke. Vomited today. Suspect aspiration cause of respiratory failure Still on optiflow, course and tachypneic sitting up in a chair. Bronchodilators. Chest x-ray: Interstitial and mild airspace opacities in bilateral lower lung zones most likely mild pulmonary edema and associated atelectasis although pneumonia not excludable. incentive spirometry while awake. sputum culture ordered, induce sputum influenza/COVID/RSV negative continue azithromycin per tube Stop IV Meropenem MRSA swab negative, DC'd Vanc supplemental oxygen therapy to maintain oxygen 92%. 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 On Meropenem for Pneumonia, can wean IV pending cultures HX CVA Residual left-sided deficits PEG tube Dietitian consulted Tube feedings resumed PT/OT resumed statin and eliquis AFIB with RVR: Home meds:eliquis and metoprolol. Afib with RVR yesterday, rate 140's on EKG Changed amiodarone to PO per cardiology stop eliquis, continue carvedilol for rate control/comfort, can dc if less responsive Cardiology consulted, HX COPD: Duonebs, likely due to pneumonia Goals of care: No CPR, intubation, noninvasive ventilation. Consider hospice if not improving. Patient is aware she could without more aggressive measures Disposition: Home with Hospice DS: Summary Hospital Course Reason for hospitalization: Acute respiratory failure with hypoxia Hospital Course: Narrative: This is a pleas
[2024-04-15 18:18] LABS: Pneumococcal Antigen Urine NOT DETECTED
[2024-04-15 19:13] LABS: Mycoplasma IgM Antibody Titer 224 U/mL
[2024-04-16 03:19] LABS: Legionella pneumophila Ag Ur NOT DETECTED
== END 2024-04-13 13:15 | disposition hospice, home (50) | DRG 189 ==
LOC: ANHED 19:33 → ANH3MEDSUR 20:12 → ANHIMU 04-11 19:57
PROVIDERS: Internal Medicine; Physician Assistant; Admitting Provider General Practice; Emergency Provider Emergency Medicine; PCP Internal Medicine; Visit Provider Nurse Practitioner Family
DX: J96.01 Acute respiratory failure with hypoxia (principal); J18.9 Pneumonia, unspecified organism; E43 Unspecified severe protein-calorie malnutrition; I69.354 Hemiplegia and hemiparesis following cerebral infarction affecting left non-dominant side; N39.0 Urinary tract infection, site not specified; I50.22 Chronic systolic (congestive) heart failure; Z68.1 Body mass index [BMI] 19.9 or less, adult; I69.320 Aphasia following cerebral infarction; I69.391 Dysphagia following cerebral infarction; R13.10 Dysphagia, unspecified; Z93.1 Gastrostomy status; I11.0 Hypertensive heart disease with heart failure; E78.5 Hyperlipidemia, unspecified; I48.0 Paroxysmal atrial fibrillation; B96.20 Unspecified Escherichia coli [E. coli] as the cause of diseases classified elsewhere; Z79.01 Long term (current) use of anticoagulants; Z20.822 Contact with and (suspected) exposure to COVID-19; Z87.891 Personal history of nicotine dependence; Z66 Do not resuscitate
CPT/HCPCS: 36415; 36600; 71045; 80053; 81001; 82805; 83690; 83735; 83880; 84443; 84484; 85025; 85027; 86738; 87040; 87077; 87086; 87088; 87186; 87449; 87637; 87641; 87899; 93005; 94640; 94667; 96365; 96367; 96375; 97161; 97165; 97530; 97535; 99285; A9270; G0378; J0282; J0456; J0696; J1940; J2185; J2270; J2470; J3370; J7030